=== PATIENT | female | born 1985 | race Two or more races ===

== ENCOUNTER 2020-04-05 20:09 | Emergency (ER) | payer MEDICAID, SELFPAY | END 2020-04-06 00:12 | disposition left against medical advice (07) | PROVIDERS: Emergency Provider Emergency Medicine | DX: R42 Dizziness and giddiness (principal) ==

== ENCOUNTER 2020-09-15 12:45 | Inpatient (IN) | payer MEDICAID, SELFPAY ==
--- NOTE | ~2020-09-15 | XR_ITS ---
EXAMINATION: XR CHEST CLINICAL INFORMATION: Shortness of breath COMPARISON: Chest 02/21/2014. TECHNIQUE: Frontal view of the chest was obtained. FINDINGS: The lungs are hypoexpanded with mild patchy opacity in both lower lobes. There is a 1 cm nodule left lung base likely artifact. Was not seen on the previous exam 02/21/2014. The heart size and pulmonary vascularity is normal. Mild spondylosis dorsal spine seen. No lytic process. XR/XR chest 1V IMPRESSION: Patchy opacity bilateral infrahilar and lower lobes suspicious for developing infiltrate.
--- NOTE | 2020-09-15 12:57 | ECG_ITS ---
Test Reason : SOB Blood Pressure : / mmHG Vent. Rate : 110 BPM Atrial Rate : 110 BPM P-R Int : 122 ms QRS Dur : 072 ms QT Int : 318 ms P-R-T Axes : 060 044 028 degrees QTc Int : 430 ms Sinus tachycardia Possible Left atrial enlargement Borderline ECG When compared with ECG of 06-OCT-2012 10:36, No significant change was found Referred By: Jade Odonnell Electronically Signed By:PORTER MONTGOMERY
[2020-09-15] MEDS: Albuterol Sulfate (0.083%) 2.5 MG/3 ML VIAL.NEB 10 MG INHALE (13:07)
[2020-09-15 13:12] VITALS: BP 154/88; PULSE 101; RESP 24; TEMP 37.1; O2SAT 91; BMI 37.5
[2020-09-15 13:21] LABS: MANUAL DIFF FLAG NO
[2020-09-15 13:24] LABS: Basophils Absolute Auto 0.1 X10*3/uL (0.0-0.2); Basophils Percent Auto 0.4 % (0-2); Eosinophils Absolute Auto 0.1 X10*3/uL (0.0-0.4); Eosinophils Percent Auto 0.5 % (0-4); Hematocrit 38.2 % (37-47); Imm Gran Abs Auto 0.04 X10*3/uL (0.00-0.03); Imm Gran Pct Auto 0.3 % (0.0-0.4); Lymphocytes Absolute Auto 1.5 X10*3/uL (1.2-4.9); Lymphocytes Percent Auto 11.9 % (20-40); Mean Corpuscular Hemoglobin 28.8 pg (27.0-33.0); Mean Corpuscular Volume 84.7 fL (80-98); Mean Platelet Volume 10.5 fL (9.4-12.3); Monocytes Absolute Auto 1.3 X10*3/uL (0.1-1.2); Monocytes Percent Auto 9.6 % (2-11); Neutrophils Percent Auto 77.3 % (45-73); Platelet Count 291 X10*3/uL (160-400); Red Blood Count 4.51 X10*6/uL (4.20-5.50); Red Cell Distribution Width 12.8 % (11.0-16.0)
[2020-09-15] MEDS: 0.9 % Sodium Chloride 1,000 ML 999 ML IVCONT (13:30)
[2020-09-15] MEDS: Magnesium Sulfate/H2O 2 GM/50 ML PIGGYBACK IV (13:30)
[2020-09-15] MEDS: methylPREDNISolone Sod Succ 125 MG/2 ML VIAL IVPUSH (13:30)
[2020-09-15 13:40] LABS: Lactic Acid 1.2 mmol/L (0.5-2.0)
[2020-09-15 13:49] LABS: B Type Natriuretic Peptide 42 pg/mL (<100)
[2020-09-15] MEDS: cefTRIAXone sodium 2 GM in 0.9 % Sodium Chloride 50 ML IV (14:00)
--- NOTE | 2020-09-15 14:05 | PC.NURSE ---
RHONCHI MOSTLY RESOLVED THROUGHOUT POST NEB TX. REMAINS ON SUPPLEMENTAL O2 AT 2L WITH SPO2 90% ON RA.
[2020-09-15 14:09] VITALS: PULSE 98; O2SAT 92
[2020-09-15 14:10] LABS: Alanine Aminotransferase 45 U/L (0-31); Alkaline Phosphatase 102 U/L (39-117); Anion Gap 14 (12-20); Aspartate Amino Transferase 32 U/L (5-31); Bilirubin Total 0.7 mg/dL (0.0-1.0); Blood Urea Nitrogen 5 mg/dL (9-16); Carbon Dioxide 24 mmol/L (22-29); Chloride 101 mmol/L (96-108); Estimated Glomerular Filt Rate > 60; Glucose Random 268 mg/dL (60-115); Magnesium 1.8 mg/dL (1.6-2.6); Potassium 3.8 mmol/L (3.3-5.1); Sodium 135 mmol/L (135-145); Total Protein 7.1 g/dL (6.5-8.0)
--- NOTE | 2020-09-15 14:33 | ED.ASTHMA ---
HPI - Asthma General Chief Complaint: Asthma Stated Complaint: asthma Time Seen by Provider: 09/15/20 12:57 Source: patient and family Mode of arrival: ambulatory Limitations: no limitations History of Present Illness HPI Narrative: 35-year-old female with a past medical history of diabetes to the ED with complaints of dry cough with shortness of breath/wheezing with posttussive emesis for the past 3 days worse today. She reports associated chills and subjective fevers that started this morning. reports that she was prescribed an inhaler and no symptomatic relief. She reports she has not had an asthma attack in a long time. She has not recently been admitted for asthma. She has never been intubated for her asthma. She denies any dizziness, headaches, change in vision, sputum production, palpitations, abdominal pain, diarrhea, dysuria, weakness, recent travel or sick contacts or any other symptoms complaints or concerns at this time. MD complaint: asthma attack , shortness of breath and wheezing Onset (ago): day(s) (Three days worse today) Severity: severe and worse than usual Context: none known Associated symptoms: dry cough Treatments Prior to Arrival: other (Albuterol inhaler no symptomatic relief) Related Data Current Asthma Therapy: other (Albuterol inhaler) Home Medications Medication Instructions Recorded Confirmed albuterol sulfate 90 mcg/actuation 2 puff INHALATION Q4-6H PRN 09/15/20 09/15/20 aerosol inhaler cetirizine 10 mg tablet 1 tab PO DAILY PRN 09/15/20 09/15/20 dulaglutide 0.75 mg/0.5 mL 0.75 mg SUBCUT QWEEK 09/15/20 09/15/20 subcutaneous pen injector (Trulicity) ergocalciferol (vitamin D2) 1,250 1,250 mcg PO QWEEK 09/15/20 09/15/20 mcg (50,000 unit) capsule fluticasone propionate 110 1 PO BID 09/15/20 mcg/actuation HFA aerosol inhaler (Flovent HFA) gabapentin 300 mg capsule 1 cap PO DAILY 09/15/20 09/15/20 hydroxyzine pamoate 25 mg capsule 1 cap PO BEDTIME PRN 09/15/20 09/15/20 insulin glargine 100 unit/mL (3 34 unit SUBCUT QPM 09/15/20 09/15/20 mL) subcutaneous pen (Lantus Solostar U-100 Insulin) lisinopril 2.5 mg tablet 1 tab PO DAILY 09/15/20 09/15/20 omeprazole 20 mg capsule,delayed 1 cap PO DAILY PRN 09/15/20 09/15/20 release Allergies Allergy/AdvReac Type Severity Reaction Status Date / Time No Known Allergies Allergy Unverified 11/02/19 18:13 Review of Systems Review of Systems: Constitutional : denies med noncompliance, no history of PE or DVT, denies recent travel, + Fever, + Chills ENT/Mouth : No Hoarseness, No sore throat, No Rhinorrhea Eyes: No Redness, No Discharge, No Vision Changes Cardiovascular : No Chest Pain, + SOB, No Dyspnea on Exertion, No Edema, no pleurisy, Respiratory : + Cough, No Sputum, no stridor, no hemoptysis, Gastrointestinal : + Nausea, + Vomiting, No Diarrhea, No abdominal Pain Genitourinary : No Dysuria, No Hematuria Musculoskeletal : No joint pain, No Myalgias Extremities: no extremity swelling /pain Skin : No rash, no itching, no swelling Neuro : No Weakness, No Numbness, No Headache Psych : No anxiety, depression Heme/Lymph: No Bruising, No Bleeding Endocrine : No Polyuria, No Polydipsia Yes all other systems are reviewed and are negative [facility] Past Medical History Attestation statement: The following information was validated with the patient. Medical History Asthma Diabetes Social History Social History Advance Directives: No Advance Directives Information Provided: Yes Patient : No Physical Exam Vital Signs: Vital Signs: Last Vital Signs Temp 98.8 F 09/15/20 13:12 Pulse 98 09/15/20 14:09 Resp 24 H 09/15/20 13:12 BP 154/88 H 09/15/20 13:12 Pulse Ox 91 L 09/15/20 13:12 Body Mass Index 37.5 vital signs have been reviewed as normal and appeared to be correct. Blood pressure hypertensive 154/88. Heart rate tachycardic at 101. Respiration rate tachypneic 24. Temperature normal. Oxygen saturation low at 91% on room air. Appearance: Alert. Oriented X3. In acute respiratory distress. Head: Normal external exam. Normocephalic. Atraumatic. Eyes: PERRLA. EOMI. Conjunctiva and sclera normal. Eyelids normal. ENT: EAC normal. TM's Normal. Pharynx normal. Uvula midline. Moist mucous membranes. No trismus noted. No drooling noted. No muffled voice noted. Neck: Normal inspection. Neck supple. FROM. No adenopathy. Thyroid Normal. No meningeal signs. No neck mass noted. CVS: Normal heart rate and rhythm. Heart sound normal. Pulses normal throughout. No murmurs/rales/gallops. Respiratory: In acute respiratory distress with decreased breath sounds and inspiratory and expiratory wheezing throughout. Patient noted to have tracheal tugging and accessory muscle usage noted No rales/rhonchi noted. Chest is nontender. Abdomen: Soft and nontender. Bowel sounds normal in all 4 quadrants. No distention noted. No organomegaly noted. No visible injury noted. Back: Full range of motion noted. No rashes/lesion/induration/fluctuance or signs of infection noted. Skin: Skin warm and dry. Normal skin color. Normal skin turgor. No rashes/lesions/lacerations noted. Extremities: No lower extremity edema. No calf tenderness is noted. exhibit normal range of motion. Extremities nontender. Neuro: Oriented X 3. No motor deficit. No sensory deficit. Reflexes normal. Normal steady gait. No focal neuro deficits noted. Vascular: + radial pulses/+ 2 distal pedal pulses/+2 dorsalis pedis b/l. Normal cap refill. No cyanosis noted to upper extremity nails and lower extremity toes nails. Course Course Course Narrative: 13:45pm - 35-year-old female with a past medical history of diabetes to the ED with complaints of dry cough with shortness of breath/wheezing with posttussive emesis for the past 3 days worse today. She reports associated chills and subjective fevers that started this morning. reports that she was prescribed an inhaler and no symptomatic relief. She reports she has not had an asthma attack in a long time. She has not recently been admitted for asthma. She has never been intubated for her asthma. Plan: Labs, chest x-ray, blood cultures, lactic acid, UA. Provide an hour long breathing treatment, 4 mg of Zofran, 2 mg of magnesium and 125 mg of Solu-Medrol along with 2 g of Rocephin and re-evaluate. Reevaluation(s) Reevaluation #1: - patient's exam improved she no longer has tracheal tugging or accessory muscle usage mild expiratory wheezing noted otherwise not in any acute distress at this time. - labs reviewed and patient has an elevated white blood cell count at 13,000. BUN 5. Random glucose 268. AST/ALT 32/45. Otherwise all other labs are within normal limits. Patient negative for COVID/flu. She is positive for RSV. - chest x-ray revealed patchy opacity bilateral infrahilar and lower lobes suspicious for developing infiltrate. - therefore patient will be admitted at this time for asthma exacerbation exacerbated by RSV and pneumonia. Patient understands agrees with this plan. I discussed this patient with Dr. Andrews she understands and agrees with the plan. Time: 14:47 [facility] - Asthma Medical Records Attestation: I reviewed the patient's medical records. Lab Data Attestation: I reviewed the patient's lab results. Result diagrams: 09/15/20 13:17 09/15/20 13:42 Labs: Lab Results 09/15/20 09/15/20 09/15/20 Range/Units 13:17 13:17 13:17 WBC 13.0 H (4.8-10.8) X10*3/uL RBC 4.51 (4.20-5.50) X10*6/uL Hgb 13.0 (12.0-16.0) g/dl Hct 38.2 (37-47) % MCV 84.7 (80-98) fL MCH 28.8 (27.0-33.0) pg MCHC 34.0 (31.0-35.0) g/dl RDW 12.8 (11.0-16.0) % Plt Count 291 (160-400) X10*3/uL MPV 10.5 (9.4-12.3) fL Immature Gran % (Auto) 0.3 (0.0-0.4) % Neut % (Auto) 77.3 H (45-73) % Lymph % (Auto) 11.9 L (20-40) % [place] % (Auto) 9.6 (2-11) % Eos % (Auto) 0.5 (0-4) % Baso % (Auto) 0.4 (0-2) % Lymph # (Auto) 1.5 (1.2-4.9) X10*3/uL [place] # (Auto) 1.3 H (0.1-1.2) X10*3/uL Eos # (Auto) 0.1 (0.0-0.4) X10*3/uL Baso # (Auto) 0.1 (0.0-0.2) X10*3/uL Abs Immat Gran (auto) 0.04 H (0.00-0.03) X10*3/uL Absolute Neuts (auto) 10.0 H (2.0-8.3) X10*3/uL Absolute Nucleated RBC 0.000 (0.0-0.012) X10*3/uL Nucleated RBC % (auto) 0.0 (0.0-0.2) /100WBC Sodium (135-145) mmol/L Potassium (3.3-5.1) mmol/L Chloride (96-108) mmol/L Carbon Dioxide (22-29) mmol/L Anion Gap (12-20) BUN (9-16) mg/dL Creatinine (0.5-1.4) mg/dL Estim Creat Clear Calc Estimated GFR Random Glucose (60-115) mg/dL Lactic Acid (0.5-2.0) mmol/L Calcium (8.4-10.2) mg/dL Magnesium (1.6-2.6) mg/dL Total Bilirubin (0.0-1.0) mg/dL AST (5-31) U/L ALT (0-31) U/L Alkaline Phosphatase (39-117) U/L B-Natriuretic Peptide 42 (<100) pg/mL Total Protein (6.5-8.0) g/dL Albumin (3.5-5.0) g/dL Coronavirus (PCR) NEGATIVE (Negative) Influenza Type A (PCR) NEGATIVE (Negative) Influenza Type B (PCR) NEGATIVE (Negative) RSV RNA Qual (PCR) POSITIVE A (Negative) 09/15/20 09/15/20 Range/Units 13:17 13:42 WBC (4.8-10.8) X10*3/uL RBC (4.20-5.50) X10*6/uL Hgb (12.0-16.0) g/dl Hct (37-47) % MCV (80-98) fL MCH (27.0-33.0) pg MCHC (31.0-35.0) g/dl RDW (11.0-16.0) % Plt Count (160-400) X10*3/uL MPV (9.4-12.3) fL Immature Gran % (Auto) (0.0-0.4) % Neut % (Auto) (45-73) % Lymph % (Auto) (20-40) % [place] % (Auto) (2-11) % Eos % (Auto) (0-4) % Baso % (Auto) (0-2) % Lymph # (Auto) (1.2-4.9) X10*3/uL [place] # (Auto) (0.1-1.2) X10*3/uL Eos # (Auto) (0.0-0.4) X10*3/uL Baso # (Auto) (0.0-0.2) X10*3/uL Abs Immat Gran (auto) (0.00-0.03) X10*3/uL Absolute Neuts (auto) (2.0-8.3) X10*3/uL Absolute Nucleated RBC (0.0-0.012) X10*3/uL Nucleated RBC % (auto) (0.0-0.2) /100WBC Sodium 135 (135-145) mmol/L Potassium 3.8 (3.3-5.1) mmol/L Chloride 101 (96-108) mmol/L Carbon Dioxide 24 (22-29) mmol/L Anion Gap 14 (12-20) BUN 5 L (9-16) mg/dL Creatinine 0.75 (0.5-1.4) mg/dL Estim Creat Clear Calc 133.0 Estimated GFR > 60 Random Glucose 268 H (60-115) mg/dL Lactic Acid 1.2 (0.5-2.0) mmol/L Calcium 9.0 (8.4-10.2) mg/dL Magnesium 1.8 (1.6-2.6) mg/dL Total Bilirubin 0.7 (0.0-1.0) mg/dL AST 32 H (5-31) U/L ALT 45 H (0-31) U/L Alkaline Phosphatase 102 (39-117) U/L B-Natriuretic Peptide (<100) pg/mL Total Protein 7.1 (6.5-8.0) g/dL Albumin 4.0 (3.5-5.0) g/dL Coronavirus (PCR) (Negative) Influenza Type A (PCR) (Negative) Influenza Type B (PCR) (Negative) RSV RNA Qual (PCR) (Negative) Imaging Data Chest x-ray: Attestation: I personally reviewed and interpreted this imaging study as follows: Radiologist's impression: FINDINGS: The lungs are hypoexpanded with mild patchy opacity in both lower lobes. There is a 1 cm nodule left lung base likely artifact. Was not seen on the previous exam 02/21/2014. The heart size and pulmonary vascularity is normal. Mild spondylosis dorsal spine seen. No lytic process. XR/XR chest 1V IMPRESSION: Patchy opacity bilateral infrahilar and lower lobes suspicious for developing infiltrate. ECG Data Attestation: I personally reviewed and interpreted this ECG as follows: ECG interpretation date: 09/15/20 ECG interpretation time: 13:34 Interpretation: Sinus tachycardia with ventricular rate of 110 with left atrial enlargement no acute ischemic changes are noted. Similar when compared to prior EKG 10/07/2012. Critical Care Time Critical Care Time Critical Care Time: Yes Total Critical Care Time: 60 Attestation: I personally attest to this time spent taking care of the patient Discharge Plan Discharge Clinical Impression: Asthma with acute exacerbation, Pneumonia, Respiratory syncytial virus (RSV) Patient Disposition: Admitted As Inpatient
[2020-09-15 14:40] LABS: Influenza A PCR NEGATIVE (Negative); Influenza B PCR NEGATIVE (Negative); Resp Syncy Virus RNA Qual PCR POSITIVE (Negative); SARS COV2 PCR INHOUSE NEGATIVE (Negative)
--- NOTE | 2020-09-15 15:22 | PM.EVENT ---
Event Note Date of Service: 09/16/20 Event Note: the patient was seen and evaluated with MIREYA Mancia. I agree with her note, assessment and plan with the following. In summary, 35 years old lady with PMH of diabetes and obesity who presents to the hospital of breath and dry cough for the last few days. Found to be in asthma exacerbation secondary to RSV virus infection. Acute asthma exacerbation Start steroids, nebulizers and oxygen supplement as needed Rest of evaluations by PA note.
--- NOTE | 2020-09-15 15:38 | PM.IMHP ---
History of Present Illness Date of Service: 09/15/20 Chief Complaint: Shortness of breath This is a 35-year-old Chinese-speaking female who presents to the emergency department with complaints of shortness of breath. She reports 2 days of dry cough and shortness of breath she has had associated nausea and vomiting but denies any abdominal pain or diarrhea. She reports associated chills. She denies any recent sick contacts. She received her vaccination for COVID-19 with the pfizer vaccine in August. To the emergency department she was tachycardic and tachypneic. Chest x-ray shows patchy opacity bilateral infrahilar and lower lobe suspicious for developing infiltrate. She was started on a dose of IV ceftriaxone. She received IV magnesium, IV steroids and 1 updraft treatment. Lab work was significant for leukocytosis of 13. Her COVID swab was negative however she did test positive for RSV. Given her initial presentation the decision was made to admit her to the hospital for further management asthma and pneumonia. Review of Systems Review of Systems: Yes all other systems are reviewed and are negative Constitutional: Constitutional: Reports chills and Denies fever(s) Cardiovascular: Cardiovascular: Denies chest pain Respiratory: Respiratory: Reports cough Gastrointestinal: Gastrointestinal: Denies abdominal pain [facility] Medical History Asthma Diabetes Functional capacity: independent ambulation Family History Other Asthma Pertinent family history: son has asthma Social History (Updated 09/15/20 @ 15:44 by MIREYA Nichols) Alcohol intake: current Alcohol intake frequency: holidays/special occasions only Patient Tobacco Use Status: Current everyday Tobacco user Cigarettes Per Day: 3 Use of substances other than those prescribed or required for medical reasons: No Advance Directives: No Advance Directives Information Provided: Yes Patient : No Meds Allergies Allergy/AdvReac Type Severity Reaction Status Date / Time No Known Allergies Allergy Unverified 11/02/19 18:13 Home Medications Medication Instructions Recorded Confirmed Last Taken Type albuterol sulfate 90 mcg/actuation 2 puff INHALATION Q4-6H PRN 09/15/20 09/15/20 Unknown History aerosol inhaler cetirizine 10 mg tablet 1 tab PO DAILY PRN 09/15/20 09/15/20 Unknown History dulaglutide 0.75 mg/0.5 mL 0.75 mg SUBCUT QWEEK 09/15/20 09/15/20 4 Days Ago History subcutaneous pen injector ~09/11/20 (Trulicity) ergocalciferol (vitamin D2) 1,250 1,250 mcg PO QWEEK 09/15/20 09/15/20 1 Day Ago History mcg (50,000 unit) capsule ~09/14/20 fluticasone propionate 110 1 PO BID 09/15/20 Unknown History mcg/actuation HFA aerosol inhaler (Flovent HFA) gabapentin 300 mg capsule 1 cap PO DAILY 09/15/20 09/15/20 Unknown History hydroxyzine pamoate 25 mg capsule 1 cap PO BEDTIME PRN 09/15/20 09/15/20 Unknown History insulin glargine 100 unit/mL (3 34 unit SUBCUT QPM 09/15/20 09/15/20 Unknown History mL) subcutaneous pen (Lantus Solostar U-100 Insulin) lisinopril 2.5 mg tablet 1 tab PO DAILY 09/15/20 09/15/20 Unknown History omeprazole 20 mg capsule,delayed 1 cap PO DAILY PRN 09/15/20 09/15/20 Unknown History release Physical Exam Vital Signs and Narrative: Vital Signs: Last Vital Signs Temp 98.8 F 09/15/20 13:12 Pulse 98 09/15/20 14:09 Resp 24 H 09/15/20 13:12 BP 154/88 H 09/15/20 13:12 Pulse Ox 91 L 09/15/20 13:12 Body Mass Index 37.5 Results Labs CBC and Chem 7: 09/15/20 13:17 09/15/20 13:42 Labs: Laboratory Results - last 24 hr 09/15/20 09/15/20 09/15/20 13:17 13:17 13:17 MCV 84.7 MCH 28.8 MCHC 34.0 RDW 12.8 Plt Count 291 MPV 10.5 Immature Gran % (Auto) 0.3 Neut % (Auto) 77.3 H Lymph % (Auto) 11.9 L [place] % (Auto) 9.6 Eos % (Auto) 0.5 Baso % (Auto) 0.4 Lymph # (Auto) 1.5 [place] # (Auto) 1.3 H Eos # (Auto) 0.1 Baso # (Auto) 0.1 Abs Immat Gran (auto) 0.04 H Absolute Neuts (auto) 10.0 H Absolute Nucleated RBC 0.000 Nucleated RBC % (auto) 0.0 Anion Gap Estim Creat Clear Calc Estimated GFR Random Glucose Lactic Acid Calcium Magnesium Total Bilirubin AST ALT Alkaline Phosphatase B-Natriuretic Peptide 42 Total Protein Albumin Coronavirus (PCR) NEGATIVE Influenza Type A (PCR) NEGATIVE Influenza Type B (PCR) NEGATIVE RSV RNA Qual (PCR) POSITIVE A 09/15/20 09/15/20 13:17 13:42 MCV MCH MCHC RDW Plt Count MPV Immature Gran % (Auto) Neut % (Auto) Lymph % (Auto) [place] % (Auto) Eos % (Auto) Baso % (Auto) Lymph # (Auto) [place] # (Auto) Eos # (Auto) Baso # (Auto) Abs Immat Gran (auto) Absolute Neuts (auto) Absolute Nucleated RBC Nucleated RBC % (auto) Anion Gap 14 Estim Creat Clear Calc 133.0 Estimated GFR > 60 Random Glucose 268 H Lactic Acid 1.2 Calcium 9.0 Magnesium 1.8 Total Bilirubin 0.7 AST 32 H ALT 45 H Alkaline Phosphatase 102 B-Natriuretic Peptide Total Protein 7.1 Albumin 4.0 Coronavirus (PCR) Influenza Type A (PCR) Influenza Type B (PCR) RSV RNA Qual (PCR) Imaging Radiologist's Impressions: Impressions Chest X-Ray 09/15/20 12:58 IMPRESSION: Patchy opacity bilateral infrahilar and lower lobes suspicious for developing infiltrate. Assessment and Plan (1) Asthma with acute exacerbation: Status: Acute (2) Respiratory syncytial virus (RSV): Status: Acute This is a 35-year-old Chinese-speaking female with a history of asthma and diabetes who presents to the emergency department with 2 day history of shortness of breath found to have asthma exacerbation, pneumonia and RSV. Sepsis secondary to pneumonia meets criteria with leukocytosis, tachycardia, tachypnea Lactic acid wnl sepsis focused exam completed -follow blood cultures Acute asthma exacerbation Likely exacerbated by RSV -scheduled and p.r.n. breathing treatments -IV Solu-Medrol Pneumonia -IV doxycycline -follow up blood cultures Mild transaminitis chronic likely r/t fatty liver DM Trulicity non formulary -continue Lantus -SSI, POC Obesity BMI 37.6 DVT prophylaxis-Lovenox Code status-full code Attending-Dr. Martin Quality Stroke Does the patient have a stroke diagnosis?: No VTE Prior VTE?: No VTE Risk Level:: Medical - moderate - high VTE Device Contraindication: Treatment Not Indicated VTE Drug Contraindication: N/A - Med Ordered
[2020-09-15 16:00] VITALS: BP 129/80; PULSE 90; RESP 16; TEMP 37; O2SAT 95
[2020-09-15 17:38] LABS: Glucose Urine UA 500 MG/DL (NEG); Leukocyte Esterase Urine NEG (NEG); Nitrite Urine NEG (NEG); Specific Gravity - Urine >= 1.030 (1.005-1.025); UACC Culture Trigger NO; Urine Blood 2+ (NEG); Urine Ketones >=80 MG/DL (NEG); Urine Protein 2+ MG/DL (NEG-TRACE)
[2020-09-15 17:39] LABS: Appearance Urine CLEAR; Color Urine YELLOW
[2020-09-15 17:58] LABS: Bacteria Urine TRACE /LPF; Squamous Epithelial Cell Urine 1+ /LPF; WBC Urine 0 /HPF (0-4)
[2020-09-15 17:59] LABS: Uric Acid Crystals Urine TRACE /LPF
[2020-09-15] MEDS: Doxycycline Hyclate 100 MG in 0.9 % Sodium Chloride 250 ML 166.67 MG IV (18:21)
[2020-09-15 18:27] LABS: Glucose, Whole Blood 325 mg/dL (60-115)
[2020-09-15] MEDS: 0.9 % Sodium Chloride Flush 3 ML SYRINGE IVFLUSH ×2 (18:50→23:08)
[2020-09-15] MEDS: Albuterol/Iprat 2.5/0.5MG 3 ML AMPUL.NEB INHALE (19:58)
[2020-09-15 19:59] VITALS: PULSE 83; O2SAT 97
[2020-09-15 20:36] LABS: Glucose, Whole Blood 367 mg/dL (60-115)
[2020-09-15] MEDS: Insulin Lispro 100 UNIT/ML 3 ML VIAL SUBCUT (20:49)
[2020-09-15] MEDS: Enoxaparin Sodium 40 MG/0.4 ML SYRINGE SUBCUT (20:49)
[2020-09-15] MEDS: Acetaminophen 325 MG TABLET 650 MG PO (20:56)
[2020-09-15 22:01] VITALS: BP 151/85; PULSE 84; RESP 16; O2SAT 95
[2020-09-15] MEDS: Insulin Glargine,Hum.rec.anlog 100 UNIT/ML 10 ML VIAL 34 UNIT SUBCUT (22:03)
[2020-09-15 22:09] LABS: Glucose, Whole Blood 370 mg/dL (60-115)
--- NOTE | 2020-09-15 22:09 | PC.NURSE ---
MD FERGUSON AWARE OF PT ELEVATED POC. MEDICATED ORDERED. AWAITING TRANSFER TO FLOOR. RESP EVEN, NONLABOURED. SPEAKING IN CLEAR FULL SENTENCES.
[2020-09-15 22:33] VITALS: BP 146/84; PULSE 88; RESP 20; TEMP 36.7; O2SAT 93
[2020-09-15 22:40] LABS: Glucose, Whole Blood 345 mg/dL (60-115)
[2020-09-15] MEDS: methylPREDNISolone Sod Succ 40 MG/ML VIAL IVPUSH (23:08)
[2020-09-16] VITALS (7 sets, daily range): BP systolic 126–135; BP diastolic 63–79; PULSE 66–87; RESP 18–20; TEMP 36.3–37.1; O2SAT 91–98; BMI 35.6
[2020-09-16] MEDS: Doxycycline Hyclate 100 MG in 0.9 % Sodium Chloride 250 ML 166.67 MG IV ×2 (05:22→18:29)
[2020-09-16 05:42] LABS: Hematocrit 37.4 % (37-47); Hemoglobin 12.4 g/dl (12.0-16.0); Mean Corpuscular HGB Conc 33.2 g/dl (31.0-35.0); Mean Corpuscular Hemoglobin 28.6 pg (27.0-33.0); Mean Corpuscular Volume 86.4 fL (80-98); Mean Platelet Volume 11.2 fL (9.4-12.3); Platelet Count 316 X10*3/uL (160-400); Red Blood Count 4.33 X10*6/uL (4.20-5.50); Red Cell Distribution Width 12.9 % (11.0-16.0); White Blood Count 13.4 X10*3/uL (4.8-10.8)
[2020-09-16 06:19] LABS: Anion Gap 13 (12-20); Blood Urea Nitrogen 9 mg/dL (9-16); Calcium 9.2 mg/dL (8.4-10.2); Carbon Dioxide 26 mmol/L (22-29); Chloride 101 mmol/L (96-108); Estimated Glomerular Filt Rate > 60; Glucose Random 323 mg/dL (60-115); Potassium 5.4 mmol/L (3.3-5.1); Sodium 135 mmol/L (135-145)
[2020-09-16 07:42] LABS: Glucose, Whole Blood 289 mg/dL (60-115)
[2020-09-16] MEDS: Albuterol/Iprat 2.5/0.5MG 3 ML AMPUL.NEB INHALE ×3 (08:12→19:08)
[2020-09-16] MEDS: Acetaminophen 325 MG TABLET 650 MG PO ×2 (08:14→18:36)
[2020-09-16] MEDS: 0.9 % Sodium Chloride Flush 3 ML SYRINGE IVFLUSH ×3 (08:16→22:43)
[2020-09-16] MEDS: Gabapentin 300 MG CAPSULE PO (08:16)
[2020-09-16] MEDS: Insulin Lispro 100 UNIT/ML 3 ML VIAL SUBCUT ×4 (08:18→21:18)
[2020-09-16] MEDS: Sodium Polystyrene Sulfon/Sorb 15 GM/60 ML ORAL.SUSP 30 GM PO (08:55)
[2020-09-16] MEDS: Insulin Glargine,Hum.rec.anlog 100 UNIT/ML 10 ML VIAL 10 UNIT SUBCUT (08:55)
[2020-09-16] MEDS: methylPREDNISolone Sod Succ 40 MG/ML VIAL IVPUSH ×2 (11:38→22:41)
--- NOTE | 2020-09-16 11:45 | MHC.CM.PN ---
met with pt who reports not having services prior to admission
[2020-09-16 11:59] LABS: Glucose, Whole Blood 293 mg/dL (60-115)
--- NOTE | 2020-09-16 14:05 | HO.PM.IMPN ---
Subjective Subjective Date of Service: 09/16/20 Physical Exam Vital Signs: Vital Signs: Last Vital Signs Temp 98.2 F 09/16/20 07:35 Pulse 87 09/16/20 08:17 Resp 20 09/16/20 07:35 BP 131/79 09/16/20 08:15 Pulse Ox 91 L 09/16/20 07:35 Body Mass Index 35.6 Objective Data Current Medications Generic Name Dose Route Start Last Admin Trade Name Freq PRN Reason Stop Dose Admin Acetaminophen 650 mg 09/15/20 17:39 09/16/20 08:14 Acetaminophen 325 Mg Tablet PO 650 mg Q6H PRN Administration Pain, Mild (Pain Scale 1-3) Albuterol Sulfate 1.25 mg 09/15/20 17:39 Albuterol Sulfate (0.042%) 1.25 Mg/3 Ml Vial.Neb INHALE Q4H PRN Shortness of Breath/Wheezing Albuterol/Ipratropium 3 ml 09/15/20 20:00 09/16/20 08:12 Albuterol/Iprat 2.5/0.5mg 3 Ml Ampul.Neb INHALE 3 ml RQ6H WHILE AWAKE DEL Administration Docusate Sodium 100 mg 09/15/20 17:39 Docusate Sodium 100 Mg Capsule PO DAILY PRN Constipation Enoxaparin Sodium 40 mg 09/15/20 20:00 09/15/20 20:49 Enoxaparin Sodium 40 Mg/0.4 Ml Syringe SUBCUT 40 mg Q24H DEL Administration Gabapentin 300 mg 09/16/20 09:00 09/16/20 08:16 Gabapentin 300 Mg Capsule PO 300 mg DAILY DEL Administration Guaifenesin/Dextromethorphan 5 ml 09/15/20 17:39 Guaifenesin Dm 100/10/5 Ml 5 Ml Syrup PO Q6H PRN Cough Hydroxyzine HCl 25 mg 09/15/20 17:39 Hydroxyzine Hcl 25 Mg Tablet PO BEDTIME PRN Insomnia Doxycycline Hyclate 100 mg/ 250 mls @ 166.67 mls/hr 09/15/20 18:00 09/16/20 07:17 Sodium Chloride IV Infused Q12H DEL Infusion Insulin Glargine 34 unit 09/15/20 21:00 09/15/20 22:03 Insulin Glargine,Hum.Rec.Anlog 100 Unit/Ml 10 Ml Vial SUBCUT 34 unit BEDTIME DEL Administration Insulin Glargine 10 unit 09/16/20 09:00 09/16/20 08:55 Insulin Glargine,Hum.Rec.Anlog 100 Unit/Ml 10 Ml Vial SUBCUT 10 unit DAILY DEL Administration Insulin Human Lispro 0 unit 09/15/20 17:39 09/16/20 11:38 Insulin Lispro 100 Unit/Ml 3 Ml Vial SUBCUT 6 unit QIDACHS [facility] Administration Protocol Lisinopril 2.5 mg 09/16/20 09:00 09/16/20 08:15 Lisinopril 2.5 Mg Tablet PO 2.5 mg DAILY [facility] Administration Protocol Methylprednisolone Sodium Succinate 40 mg 09/15/20 23:00 09/16/20 11:38 Methylprednisolone Sod Succ 40 Mg/Ml Vial IVPUSH 40 mg Q12H DEL Administration Omeprazole 20 mg 09/15/20 17:39 Omeprazole 20 Mg Capsule.Dr PO DAILY PRN Acid Reflux Ondansetron HCl 4 mg 09/15/20 17:39 Ondansetron Hcl 4 Mg/2 Ml Vial IVPUSH Q8H PRN Nausea and Vomiting Sodium Chloride 3 ml 09/15/20 17:39 09/16/20 08:16 0.9 % Sodium Chloride Flush 3 Ml Syringe IVFLUSH 3 ml QSHIFT [facility] Administration Labs CBC & Chem 7: 09/16/20 04:53 09/16/20 04:53 Labs: Laboratory Results - last 24 hr 09/15/20 09/15/20 09/15/20 13:17 13:42 16:59 MCV MCH MCHC RDW Plt Count MPV Absolute Nucleated RBC Nucleated RBC % (auto) Anion Gap 14 Estim Creat Clear Calc 133.0 Estimated GFR > 60 POC Glucose Random Glucose 268 H Calcium 9.0 Magnesium 1.8 Total Bilirubin 0.7 AST 32 H ALT 45 H Alkaline Phosphatase 102 Total Protein 7.1 Albumin 4.0 Urine Color YELLOW Urine Appearance CLEAR Urine pH 6.0 Ur Specific [place] >= 1.030 H Urine Protein 2+ H Urine Glucose (UA) 500 H Urine Ketones >=80 Urine Blood 2+ H Urine Nitrite NEG Ur Leukocyte Esterase NEG Urine RBC 5-9 H Urine WBC 0 Ur Squamous Epith Cells 1+ Uric Acid Crystals TRACE Urine Bacteria TRACE Coronavirus (PCR) NEGATIVE Influenza Type A (PCR) NEGATIVE Influenza Type B (PCR) NEGATIVE RSV RNA Qual (PCR) POSITIVE A 09/15/20 09/15/20 09/15/20 18:23 20:26 22:03 MCV MCH MCHC RDW Plt Count MPV Absolute Nucleated RBC Nucleated RBC % (auto) Anion Gap Estim Creat Clear Calc Estimated GFR POC Glucose 325 H 367 H* 370 H* Random Glucose Calcium Magnesium Total Bilirubin AST ALT Alkaline Phosphatase Total Protein Albumin Urine Color Urine Appearance Urine pH Ur Specific [place] Urine Protein Urine Glucose (UA) Urine Ketones Urine Blood Urine Nitrite Ur Leukocyte Esterase Urine RBC Urine WBC Ur Squamous Epith Cells Uric Acid Crystals Urine Bacteria Coronavirus (PCR) Influenza Type A (PCR) Influenza Type B (PCR) RSV RNA Qual (PCR) 09/15/20 09/16/20 09/16/20 22:35 04:53 04:53 MCV 86.4 MCH 28.6 MCHC 33.2 RDW 12.9 Plt Count 316 MPV 11.2 Absolute Nucleated RBC 0.000 Nucleated RBC % (auto) 0.0 Anion Gap 13 Estim Creat Clear Calc 131.0 Estimated GFR > 60 POC Glucose 345 H Random Glucose 323 H Calcium 9.2 Magnesium Total Bilirubin AST ALT Alkaline Phosphatase Total Protein Albumin Urine Color Urine Appearance Urine pH Ur Specific [place] Urine Protein Urine Glucose (UA) Urine Ketones Urine Blood Urine Nitrite Ur Leukocyte Esterase Urine RBC Urine WBC Ur Squamous Epith Cells Uric Acid Crystals Urine Bacteria Coronavirus (PCR) Influenza Type A (PCR) Influenza Type B (PCR) RSV RNA Qual (PCR) 09/16/20 09/16/20 07:37 11:33 MCV MCH MCHC RDW Plt Count MPV Absolute Nucleated RBC Nucleated RBC % (auto) Anion Gap Estim Creat Clear Calc Estimated GFR POC Glucose 289 H 293 H Random Glucose Calcium Magnesium Total Bilirubin AST ALT Alkaline Phosphatase Total Protein Albumin Urine Color Urine Appearance Urine pH Ur Specific [place] Urine Protein Urine Glucose (UA) Urine Ketones Urine Blood Urine Nitrite Ur Leukocyte Esterase Urine RBC Urine WBC Ur Squamous Epith Cells Uric Acid Crystals Urine Bacteria Coronavirus (PCR) Influenza Type A (PCR) Influenza Type B (PCR) RSV RNA Qual (PCR) Assessment and Plan (1) Asthma with acute exacerbation: Status: Acute (2) Pneumonia: Status: Acute (3) Respiratory syncytial virus (RSV): Status: Acute (4) Sepsis: Status: Acute Assessment and Plan: This is a 35-year-old Indian-speaking female with a history of asthma and diabetes who presents to the emergency department with 2 day history of shortness of breath found to have asthma exacerbation, pneumonia and RSV. Sepsis secondary to pneumonia Pending blood cultures Could be viral pneumonia secondary to RSV infection Continue antibiotics Doxy and CTx Acute asthma exacerbation Likely exacerbated by RSV Nebulizers ATC and p.r.n. IV Solu-Medrol Hyperglycemia secondary to diabetes Blood sugar elevated from being sick and using steroids Continue midnight Lantus Start daily 10 units of Lantus SSI Mild transaminitis chronic likely r/t fatty liver Obesity BMI 37.6 DVT prophylaxis-Lovenox Code status-full code Quality Stroke Does the patient have a stroke diagnosis?: No VTE Prior VTE?: No VTE Risk Level:: Medical - moderate - high VTE Device Contraindication: Treatment Not Indicated VTE Drug Contraindication: N/A - Med Ordered
[2020-09-16 16:09] LABS: Glucose, Whole Blood 332 mg/dL (60-115)
[2020-09-16 20:42] LABS: Glucose, Whole Blood 335 mg/dL (60-115)
[2020-09-16] MEDS: Insulin Glargine,Hum.rec.anlog 100 UNIT/ML 10 ML VIAL 34 UNIT SUBCUT (21:18)
[2020-09-16] MEDS: Enoxaparin Sodium 40 MG/0.4 ML SYRINGE SUBCUT (21:18)
[2020-09-17] MEDS: Doxycycline Hyclate 100 MG in 0.9 % Sodium Chloride 250 ML 166.67 MG IV (05:30)
[2020-09-17 06:02] LABS: Hematocrit 35.6 % (37-47); Hemoglobin 11.7 g/dl (12.0-16.0); Mean Corpuscular HGB Conc 32.9 g/dl (31.0-35.0); Mean Corpuscular Hemoglobin 28.5 pg (27.0-33.0); Mean Corpuscular Volume 86.6 fL (80-98); Platelet Count 345 X10*3/uL (160-400); Red Blood Count 4.11 X10*6/uL (4.20-5.50); Red Cell Distribution Width 13.2 % (11.0-16.0); White Blood Count 15.5 X10*3/uL (4.8-10.8)
[2020-09-17 06:33] LABS: Anion Gap 12 (12-20); Blood Urea Nitrogen 12 mg/dL (9-16); Carbon Dioxide 26 mmol/L (22-29); Chloride 102 mmol/L (96-108); Creatinine Clr Calc Pharmacy 127.5; Estimated Glomerular Filt Rate > 60; Glucose Random 331 mg/dL (60-115); Potassium 5.2 mmol/L (3.3-5.1); Sodium 135 mmol/L (135-145)
[2020-09-17 07:53] VITALS: BP 132/76; PULSE 61; RESP 22; TEMP 36.2; O2SAT 98
[2020-09-17 07:55] LABS: Glucose, Whole Blood 303 mg/dL (60-115)
[2020-09-17] MEDS: Omeprazole 20 MG CAPSULE.DR PO (08:09)
[2020-09-17] MEDS: Acetaminophen 325 MG TABLET 650 MG PO (08:09)
[2020-09-17] MEDS: guaiFENesin DM 100/10/5 ML 5 ML SYRUP PO (08:09)
[2020-09-17] MEDS: Insulin Glargine,Hum.rec.anlog 100 UNIT/ML 10 ML VIAL 10 UNIT SUBCUT (08:10)
[2020-09-17] MEDS: predniSONE 20 MG TABLET 40 MG PO (08:10)
[2020-09-17] MEDS: Gabapentin 300 MG CAPSULE PO (08:10)
[2020-09-17] MEDS: Insulin Lispro 100 UNIT/ML 3 ML VIAL SUBCUT ×2 (08:11→11:42)
[2020-09-17] MEDS: Sodium Polystyrene Sulfon/Sorb 15 GM/60 ML ORAL.SUSP 45 GM PO (08:11)
[2020-09-17] MEDS: 0.9 % Sodium Chloride Flush 3 ML SYRINGE IVFLUSH (08:12)
[2020-09-17] MEDS: Albuterol/Iprat 2.5/0.5MG 3 ML AMPUL.NEB INHALE (08:22)
[2020-09-17 08:24] VITALS: PULSE 60; O2SAT 93
--- NOTE | 2020-09-17 10:15 | P.DS_ITS ---
DS: Providers Provider Date of Service: 09/17/20 Date of admission: 09/15/20 15:08 Primary care physician: [facility] DS: Diagnosis Discharge Diagnosis (1) Asthma with acute exacerbation: Status: Acute (2) Pneumonia: Status: Acute (3) Respiratory syncytial virus (RSV): Status: Acute (4) Sepsis: Status: Acute DS: Medications Discharge Medications Home Medications: Home Medications Medication Instructions Recorded Confirmed albuterol sulfate 90 mcg/actuation 2 puff INHALATION Q4-6H PRN 09/15/20 09/15/20 aerosol inhaler cetirizine 10 mg tablet 1 tab PO DAILY PRN 09/15/20 09/15/20 dulaglutide 0.75 mg/0.5 mL 0.75 mg SUBCUT QWEEK 09/15/20 09/15/20 subcutaneous pen injector (Trulicity) ergocalciferol (vitamin D2) 1,250 1,250 mcg PO QWEEK 09/15/20 09/15/20 mcg (50,000 unit) capsule fluticasone propionate 110 1 PO BID 09/15/20 mcg/actuation HFA aerosol inhaler (Flovent HFA) gabapentin 300 mg capsule 1 cap PO DAILY 09/15/20 09/15/20 hydroxyzine pamoate 25 mg capsule 1 cap PO BEDTIME PRN 09/15/20 09/15/20 insulin glargine 100 unit/mL (3 34 unit SUBCUT QPM 09/15/20 09/15/20 mL) subcutaneous pen (Lantus Solostar U-100 Insulin) lisinopril 2.5 mg tablet 1 tab PO DAILY 09/15/20 09/15/20 omeprazole 20 mg capsule,delayed 1 cap PO DAILY PRN 09/15/20 09/15/20 release Previous Rx's Medication Instructions Recorded dextromethorphan-guaifenesin 10 5 ml PO Q6H PRN 3 Days ml 09/17/20 mg-100 mg/5 mL oral syrup doxycycline monohydrate 100 mg 100 mg PO BID #6 cap 09/17/20 capsule prednisone 20 mg tablet 40 mg PO DAILY 3 Days #6 tab 09/17/20 DS: Summary Hospital Course Hospital Course: Admission note HPI This is a 35-year-old Arabic-speaking female who presents to the emergency department with complaints of shortness of breath.? She reports 2 days of dry cough and shortness of breath she has had associated nausea and vomiting but denies any abdominal pain or diarrhea.? She reports associated chills.? She denies any recent sick contacts.? She received her vaccination for COVID-19 with the pfizer vaccine in August.? To the emergency department she was tachycardic and tachypneic.? Chest x-ray shows patchy opacity bilateral infrahilar and lower lobe suspicious for developing infiltrate.? She was started on a dose of IV ceftriaxone.? She received IV magnesium, IV steroids and 1 updraft treatment.? Lab work was significant for leukocytosis of 13. Her COVID swab was negative however she did test positive for RSV.? Given her initial presentation the decision was made to admit her to the hospital for further management asthma and pneumonia. Hospital course The patient was admitted for treatment of picture of viral sepsis secondary to RSV infection with asthma exacerbation. Chest x-ray showed bilateral infiltrates on multiple to purple areas suggestive of viral pneumonia. Associated with shortness of breath and wheezes treated with IV steroids and bronchodilator nebulizers along with oxygen supplement for the course of hospital stay with good response as the patient was weaned off the oxygen and was able to ambulate freely on the. She was treated with IV antibiotics to of doxycycline for anti-inflammatory effect. To be discharged on doxycycline and prednisone. Time Spent with Patient Time attestation: Total time spent providing and/or coordinating discharge services: Discharge coordination time: Greater than 30 minutes Quality: Stroke Does the patient have a stroke diagnosis?: No Physical Exam Vital Signs: Vital Signs: Last Vital Signs Temp 97.1 F 09/17/20 07:53 Pulse 60 09/17/20 08:24 Resp 22 H 09/17/20 07:53 BP 132/76 09/17/20 07:53 Pulse Ox 98 09/17/20 07:53 Body Mass Index 35.6 Const: Other: Constitutional : Alert, oriented, not in distress Neck : Normal inspection, Supple Cardiovascular : RRR, S1 S2, no lower extremity edema Respiratory : For bilateral air entry, no crackles, bilateral fine scattered wheezes or rhonchi Gastrointestinal: soft, lax, Normal bowel sounds, Non tender Skin : Warm/Dry, No rash Neurological : Alert & oriented x3, No focal deficit DS: Data Data Completed and Pending Labs on day of discharge: Laboratory Results - last 24 hr 09/16/20 09/16/20 09/16/20 11:33 16:03 20:24 WBC RBC Hgb Hct MCV MCH MCHC RDW Plt Count MPV Absolute Nucleated RBC Nucleated RBC % (auto) Sodium Potassium Chloride Carbon Dioxide Anion Gap BUN Creatinine Estim Creat Clear Calc Estimated GFR POC Glucose 293 H 332 H 335 H Random Glucose Calcium 09/17/20 09/17/20 09/17/20 05:18 05:18 07:51 WBC 15.5 H RBC 4.11 L Hgb 11.7 L Hct 35.6 L MCV 86.6 MCH 28.5 MCHC 32.9 RDW 13.2 Plt Count 345 MPV 11.0 Absolute Nucleated RBC 0.000 Nucleated RBC % (auto) 0.0 Sodium 135 Potassium 5.2 H Chloride 102 Carbon Dioxide 26 Anion Gap 12 BUN 12 Creatinine 0.76 Estim Creat Clear Calc 127.5 Estimated GFR > 60 POC Glucose 303 H Random Glucose 331 H Calcium 9.0 Preliminary micro results at discharge 09/15/20 13:42 Blood Culture - Preliminary Blood - Venous No growth after 24 hours. 09/15/20 13:17 Blood Culture - Preliminary Blood - Venous No growth after 24 hours. Discharge Plan Discharge Patient Disposition: Home, Self-Care Discharge Diagnosis: Asthma exacerbation RSV viral infection Pneumonia Referrals: [facility] [Primary Care Provider] - 1 Week Discharge Medications: New prednisone 20 mg Tablet 40 mg PO DAILY 3 Days Qty: 6 RF: 0 dextromethorphan-guaifenesin 10-100 mg/5 mL Syrup 5 ml PO Q6H PRN (Reason: Cough) 3 Days RF: 0 doxycycline monohydrate 100 mg capsule 100 mg PO BID Qty: 6 RF: 0 Continued cetirizine 10 mg tablet 1 tab PO DAILY PRN (Reason: allergies) RF: 0 gabapentin 300 mg capsule 1 cap PO DAILY RF: 0 omeprazole 20 mg capsule,delayed release(DR/EC) 1 cap PO DAILY PRN (Reason: Acid Reflux) RF: 0 ergocalciferol (vitamin D2) 1,250 mcg (50,000 unit) capsule 1,250 mcg PO QWEEK RF: 0 albuterol sulfate 90 mcg/actuation HFA aerosol inhaler 2 puff inhalation Q4-6H PRN (Reason: respiratory symptoms) RF: 0 lisinopril 2.5 mg tablet 1 tab PO DAILY RF: 0 Flovent HFA 110 mcg/actuation HFA aerosol inhaler 1 PO BID RF: 0 hydroxyzine pamoate 25 mg capsule 1 cap PO BEDTIME PRN (Reason: Insomnia) RF: 0 Lantus Solostar U-100 Insulin 100 unit/mL (3 mL) insulin pen 34 unit subcut QPM RF: 0 Trulicity 0.75 mg/0.5 mL pen injector 0.75 mg subcut QWEEK RF: 0 Discharge Orders: Discharge Order (Routine); Ordered 09/17/20 Ordered By: Rosi Martin Diet: advance to usual diet Activity on Discharge: As tolerated Stand Alone Forms: Patient Portal Discharge page Care Plan Goals: Read below Health Concerns: Read below Plan of Treatment: You were admitted for evaluation of wheezes and difficulty breathing. Found to be in asthma exacerbation as a result of RSV infection. Treated with steroids and nebulizers with good response Chest x-ray was concerning for possible pneumonia so you were started on ant ibiotics with good response over the course of hospital stay. Assessment: Continue prednisone and doxycycline as prescribed Continue home medications
--- NOTE | 2020-09-17 11:31 | MHC.CM.PN ---
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
[2020-09-17 11:41] LABS: Glucose, Whole Blood 328 mg/dL (60-115)
[2020-09-17 12:52] LABS: Anion Gap 14 (12-20); Blood Urea Nitrogen 13 mg/dL (9-16); Calcium 9.4 mg/dL (8.4-10.2); Carbon Dioxide 25 mmol/L (22-29); Chloride 101 mmol/L (96-108); Creatinine Clr Calc Pharmacy 125.9; Estimated Glomerular Filt Rate > 60; Glucose Random 333 mg/dL (60-115); Potassium 4.7 mmol/L (3.3-5.1); Sodium 135 mmol/L (135-145)
== END 2020-09-17 13:07 | disposition home or self-care (01) | DRG 720 ==
LOC: HO.ED 14:52 → HO.EDOVER 15:29 → HO.IMC 20:06 → HO.S3 09-17 07:25
PROVIDERS: Physician Assistant Medical; Admitting Provider Physician Assistant Medical; Emergency Provider Student in an Organized Health Care Education/Training Program; Visit Provider Student in an Organized Health Care Education/Training Program
DX: A41.89 Other specified sepsis (principal); J12.1 Respiratory syncytial virus pneumonia; J45.901 Unspecified asthma with (acute) exacerbation; B97.4 Respiratory syncytial virus as the cause of diseases classified elsewhere; E11.65 Type 2 diabetes mellitus with hyperglycemia; D72.829 Elevated white blood cell count, unspecified; F17.210 Nicotine dependence, cigarettes, uncomplicated; E66.9 Obesity, unspecified; Z20.822 Contact with and (suspected) exposure to COVID-19; Z68.37 Body mass index [BMI] 37.0-37.9, adult; Z71.6 Tobacco abuse counseling; Z79.4 Long term (current) use of insulin; Z79.51 Long term (current) use of inhaled steroids; Z79.899 Other long term (current) drug therapy
CPT/HCPCS: 0241U; 36415; 71045; 80048; 80053; 81001; 82947; 83605; 83735; 83880; 85025; 85027; 87040; 93005; 94640; 94644; 99285; J0696; J1650; J2405; J2920; J2930; J3475

== ENCOUNTER 2020-12-16 10:29 | Outpatient (REF) | payer MEDICAID, SELFPAY ==
--- NOTE | ~2020-12-16 | US_ITS ---
EXAMINATION: US ABDOMEN COMPLETE CLINICAL INFORMATION: Abnormal level serum enzymes. Hematuria. COMPARISON: Abdominal ultrasound 10/06/2012 TECHNIQUE: Real-time imaging of the abdominal viscera. FINDINGS: PANCREAS: Normal. ABDOMINAL AORTA: The proximal abdominal aorta is normal in caliber. The mid and distal aorta are not well visualized due to bowel gas. INFERIOR VENA CAVA: Visualized portions are normal. LIVER: The liver is normal in size. The liver contour is normal. Liver echotexture is increased. No focal hepatic lesion. There is no intrahepatic biliary duct dilatation seen. GALLBLADDER: The gallbladder is physiologically distended. There is a gallstone in the gallbladder measuring 2 x 2.5 cm. No evidence of gallbladder wall thickening or pericholecystic fluid. COMMON BILE DUCT: Normal in caliber measuring 0.58 cm in diameter. RIGHT KIDNEY: Normal. No hydronephrosis. No renal calculi or focal parenchymal lesions. The kidney measures 13.0 cm in maximum dimension. LEFT KIDNEY: Normal. No hydronephrosis. No renal calculi or focal parenchymal lesions. The kidney measures 13.1 cm in maximum dimension. SPLEEN: Normal. The spleen measures 11.1 cm in maximum dimension. FREE FLUID: None. US/US abdomen complete IMPRESSION: Gallstone. Echogenic liver probably representing fatty infiltration. Limited visualization of the mid and distal abdominal aorta.
== END 2020-12-16 10:30 | disposition home or self-care (01) ==
LOC: HO.US 10:29
PROVIDERS: Visit Provider Family Medicine
DX: R31.9 Hematuria, unspecified (principal); R74.8 Abnormal levels of other serum enzymes
CPT/HCPCS: 76700

== ENCOUNTER 2020-12-17 08:57 | Outpatient (REF) | payer MEDICAID, SELFPAY ==
--- NOTE | ~2020-12-17 | US_ITS ---
EXAMINATION: US PELVIS LIMITED (BLADDER) CLINICAL INFORMATION: Hematuria. COMPARISON: Ultrasound abdomen complete 12/16/2020. Pelvic ultrasound 04/13/2018. TECHNIQUE: Real-time imaging of the bladder. FINDINGS: BLADDER: Partially distended. There may be mild diffuse bladder wall thickening. No stone or mass is seen. Bilateral ureteral jets are demonstrated. Prevoid bladder volume is 102.9 mL. Postvoid bladder volume is 2.6 mL. US/US bladder IMPRESSION: The bladder is not optimally distended. There is question of mild diffuse bladder wall thickening.
== END 2020-12-17 08:58 | disposition home or self-care (01) ==
LOC: HO.US 08:57
PROVIDERS: Visit Provider Family Medicine
DX: R31.9 Hematuria, unspecified (principal); R74.8 Abnormal levels of other serum enzymes
CPT/HCPCS: 76857

== ENCOUNTER 2021-01-29 09:42 | Outpatient (REF) | payer MEDICAID, SELFPAY ==
--- NOTE | 2021-01-29 09:46 | EMG_ITS ---
This is a 35-year-old woman with bilateral hand numbness for a few months. Neurological examination is normal. No Tinel or Phalen sign. IMPRESSION: Rule out carpal tunnel syndrome. Nerve conduction EMG study: Mild carpal tunnel syndrome on the left. Early carpal tunnel syndrome on the right. Normal EMG of the left C5-T1 innervated muscles. MD CITLALY Mosley/SANDRO / [id number]
== END 2021-01-29 09:43 | disposition home or self-care (01) ==
LOC: HO.NEURO 09:42
PROVIDERS: PCP Family Medicine; Visit Provider Orthopaedic Surgery
DX: R20.0 Anesthesia of skin (principal); R20.2 Paresthesia of skin
CPT/HCPCS: 95885; 95913

== ENCOUNTER → 2021-02-05 13:00 | Outpatient (BNVA) | payer MEDICAID, SELFPAY | PROVIDERS: PCP Family Medicine; Visit Provider Orthopaedic Surgery | DX: G56.03 Carpal tunnel syndrome, bilateral upper limbs (principal) | CPT/HCPCS: 99202 ==

== ENCOUNTER 2021-04-08 11:43 | Inpatient (IN) | payer MEDICAID, SELFPAY ==
--- NOTE | ~2021-04-08 | MR_ITS ---
EXAMINATION: MRI OF THE LEFT FOOT WITHOUT AND WITH CONTRAST CLINICAL INFORMATION: Osteomyelitis 4th and 5th metatarsals. COMPARISON: None. TECHNIQUE: MRI of the left foot was performed before and after contrast. 10 mL of Gadavist was given intravenously for the contrast portion of the exam. The [id number] includes the midfoot and forefoot. FINDINGS: SUBCUTANEOUS SOFT TISSUES: There is a focal area of abnormal signal along the dorsal subcutaneous soft tissues between the 4th and 5th toes at the level of the 4th metatarsophalangeal joint. There may be a small overlying blister or ulceration at the skin. Deep to this skin abnormality is a focal area of abnormal signal measuring 7 mm transverse, 11 mm AP and 9 mm craniocaudal. The more superficial fluid-appearing collection measures 7 mm transverse, 3 mm AP and 9 mm craniocaudal. See short axis coronal image 18 series 5. This focus is dark and T1, heterogeneously bright on T2 and demonstrates heterogeneous but predominantly peripheral enhancement. There is also generalized abnormal decreased T1, increased T2 signal with enhancement of the surrounding subcutaneous soft tissues compatible with cellulitis. There is some additional nonenhancing fluid signal along the dorsal aspect of the foot compatible with concomitant generalized edema. BONE AND JOINTS: As noted above, there is no marrow abnormality noted in the 4th and 5th digits as well as throughout the remaining visualized foot. The adjacent proximal 4th and 5th phalanges and metatarsophalangeal joints are normal in signal without cortical abnormality of periostitis. MR/MR foot LT wo/w con IMPRESSION: No evidence of osteomyelitis with specific attention made to the 4th and 5th digits given the clinical indication. There is, however, a focal area of signal abnormality most compatible with a complex fluid collection along the dorsal aspect of the foot at the level of the 4th and 5th phalanges and metatarsophalangeal joints with an overlying fluid collection, likely blister or ulcer. This subcutaneous abnormality most likely reflects an abscess with surrounding cellulitis.
[2021-04-08 12:51] VITALS: BP 124/56; PULSE 91; RESP 20; TEMP 36.6; O2SAT 97; BMI 41.5
[2021-04-08 13:53] LABS: Hematocrit 42.6 % (37.0-47.0); Hemoglobin 14.1 g/dl (12.0-16.0); Mean Corpuscular HGB Conc 33.1 g/dl (31.0-35.0); Mean Corpuscular Hemoglobin 28.6 pg (27.0-33.0); Mean Corpuscular Volume 86.4 fL (80.0-98.0); Platelet Count 338 X10*3/uL (160-400); Red Blood Count 4.93 X10*6/uL (4.20-5.50); Red Cell Distribution Width 12.9 % (11.0-16.0); White Blood Count 14.6 X10*3/uL (4.8-10.8)
[2021-04-08 14:13] LABS: Anion Gap 13 (12-20); Blood Urea Nitrogen 8 mg/dL (9-16); Calcium 9.1 mg/dL (8.4-10.2); Carbon Dioxide 28 mmol/L (22-29); Chloride 98 mmol/L (96-108); Creatinine Clr Calc Pharmacy 123.3; Estimated Glomerular Filt Rate > 60; Glucose Random 313 mg/dL (60-115); Potassium 4.6 mmol/L (3.3-5.1); Sodium 134 mmol/L (135-145)
--- NOTE | 2021-04-08 15:46 | ED_ITS ---
HPI - Wound/Laceration General Chief Complaint: Wound/Laceration Stated Complaint: Pain In Both Feet No Injury Time Seen by Provider: 04/08/21 15:45 Source: patient Mode of arrival: ambulatory Limitations: no limitations History of Present Illness HPI narrative: 3 days of infection between 5 and 4 toes. Between the toes she did not know that she had fungus infection. Patient does not check her sugar at home. P atient noticed that the foot was getting red not fever no chills. Onset (ago): day(s) Patient tetanus UTD: Yes Related Data Home Medications Medication Instructions Recorded Confirmed albuterol sulfate 90 mcg/actuation 2 puff INHALATION Q4-6H PRN 09/15/20 09/15/20 aerosol inhaler cetirizine 10 mg tablet 1 tab PO DAILY PRN 09/15/20 09/15/20 dulaglutide 0.75 mg/0.5 mL 0.75 mg SUBCUT QWEEK 09/15/20 09/15/20 subcutaneous pen injector (Trulicity) ergocalciferol (vitamin D2) 1,250 1,250 mcg PO QWEEK 09/15/20 09/15/20 mcg (50,000 unit) capsule fluticasone propionate 110 1 PO BID 09/15/20 mcg/actuation HFA aerosol inhaler (Flovent HFA) gabapentin 300 mg capsule 1 cap PO DAILY 09/15/20 09/15/20 hydroxyzine pamoate 25 mg capsule 1 cap PO BEDTIME PRN 09/15/20 09/15/20 insulin glargine 100 unit/mL (3 34 unit SUBCUT QPM 09/15/20 09/15/20 mL) subcutaneous pen (Lantus Solostar U-100 Insulin) lisinopril 2.5 mg tablet 1 tab PO DAILY 09/15/20 09/15/20 omeprazole 20 mg capsule,delayed 1 cap PO DAILY PRN 09/15/20 09/15/20 release Previous Rx's Medication Instructions Recorded dextromethorphan-guaifenesin 10 5 ml PO Q6H PRN 3 Days ml 09/17/20 mg-100 mg/5 mL oral syrup doxycycline monohydrate 100 mg 100 mg PO BID #6 cap 09/17/20 capsule prednisone 20 mg tablet 40 mg PO DAILY 3 Days #6 tab 09/17/20 Allergies Allergy/AdvReac Type Severity Reaction Status Date / Time No Known Allergies Allergy Verified 02/05/21 13:36 Review of Systems Constitutional: Constitutional: Reports no additional constitutional complaints Eyes: Eyes: Reports no additional eye complaints ENT: Denies dizziness Cardiovascular: Cardiovascular: Reports no additional cardiovascular complaints Respiratory: Respiratory: Reports as per HPI Gastrointestinal: Gastrointestinal: Reports no additional gastrointestinal complaints Genitourinary: Genitourinary: Reports no additional female genitourinary complaints Musculoskeletal: Musculoskeletal: Reports no additional musculoskeletal complaints Integumentary/Breasts: Skin/Breast: Denies rash Neurologic: Reports system reviewed and no additional complaints, except as documented, Denies dizziness and Denies Sensory deficit (Neuro) Psychiatric: Psychiatric: Denies anxiety [facility] Past Medical History Medical History Asthma Diabetes Family History Family History Other Asthma Social History Social History Household Members: Spouse Household Members Other:: and sister Housing: Apartment Do you presently have visiting nurse or other home services: No Alcohol intake: current Alcohol intake frequency: holidays/special occasions only Patient Tobacco Use Status: Current everyday Tobacco user Tobacco use type: Cigarette Cigarettes Per Day: 2 Advance Directives: No Advance Directives Information Provided: No Patient : No service: No Current occupational status: employed 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 Physical Exam Vital Signs: Vital Signs: Last Vital Signs Temp 98.3 F 04/08/21 16:29 Pulse 72 04/08/21 16:29 Resp 16 04/08/21 16:29 BP 132/88 04/08/21 16:29 Pulse Ox 98 04/08/21 16:29 BMI result Body Mass Index 41.5 Const: Nutritional Appearance: obese Orientation/consciousness: oriented to person and patient oriented x3 Limitations: no limitations and language barrier HENMT: Head: Yes normal to inspection Ears: external ears normal General nose exam: Normal external nose present Mouth: Normal oral and palatal mucosa present and oropharynx normal Throat: Yes posterior oropharynx normal Eyes: General: appearance normal, both eyes and all related structures Neck: Other: supple Neck: Yes normal visual inspection Chest: Chest palpation & inspection: normal inspection of the chest Resp: Auscultation: clear to auscultation bilaterally Cardio: Jugular venous distension: no JVD Rate: regular rate Rhythm: regular rhythm Heart sounds: S1 normal heart sound present and S2 normal heart sound present GI: Inspection: Yes normal to inspection Palpation (GI): Soft to palpation, nontender and No hepatosplenomegaly present Auscultation: normal bowel sounds : General: Yes no CVA tenderness Back/Spine/Pelvis: Back: no CVA tenderness Skin: Other: left foot between 4th and 5th digit there is tinea pedis with erythema and small black necrotic area Neuro: General: oriented to person and patient oriented x3 Cranial nerves: Yes CN's II-XII intact bilaterally Motor exam (neuro): 5/5 motor strength present throughout Sensory Exam: No Sensory deficit (Neuro) Extrem: General: Yes normal to inspection Psych: Appearance: grossly normal Course Reevaluation(s) Reevaluation #1: Patient seen by Dr. Urias will obtain sedrate, CRP, and MRI of foot to rule out osteo and admit Time: 16:18 MDM - Wound/Laceration Lab Data Result diagrams: 04/08/21 13:48 04/08/21 13:48 Labs: Lab Results 04/08/21 04/08/21 Range/Units 13:48 13:48 WBC 14.6 H (4.8-10.8) X10*3/uL RBC 4.93 (4.20-5.50) X10*6/uL Hgb 14.1 (12.0-16.0) g/dl Hct 42.6 (37.0-47.0) % MCV 86.4 (80.0-98.0) fL MCH 28.6 (27.0-33.0) pg MCHC 33.1 (31.0-35.0) g/dl RDW 12.9 (11.0-16.0) % Plt Count 338 (160-400) X10*3/uL MPV 10.0 (9.4-12.3) fL Absolute Nucleated RBC 0.000 (0.0-0.012) X10*3/uL Nucleated RBC % (auto) 0.0 (0.0-0.2) /100WBC Sodium 134 L (135-145) mmol/L Potassium 4.6 (3.3-5.1) mmol/L Chloride 98 (96-108) mmol/L Carbon Dioxide 28 (22-29) mmol/L Anion Gap 13 (12-20) BUN 8 L (9-16) mg/dL Creatinine 0.80 (0.5-1.4) mg/dL Estim Creat Clear Calc 123.3 Estimated GFR > 60 Random Glucose 313 H (60-115) mg/dL Calcium 9.1 (8.4-10.2) mg/dL Critical Care Time Critical Care Time Attestation: I spent 40 minutes of critical care, with interventions, assessments, speaking to patient, consultants, and family. Discharge Plan Discharge Clinical Impression: Diabetic infection of left foot Patient Disposition: Admitted As Inpatient
[2021-04-08] MEDS: Ampicillin Sodium/Sulbactam Na 3 GM in 0.9 % Sodium Chloride 100 ML IV (16:07)
[2021-04-08] MEDS: 0.9 % Sodium Chloride 500 ML 999 ML IV (16:07)
[2021-04-08] MEDS: Insulin Lispro 100 UNIT/ML 3 ML VIAL 8 UNIT SUBCUT (16:07)
--- NOTE | 2021-04-08 16:17 | PM.CNGS ---
History of Present Illness Consult details Consult date: 04/08/21 Requesting physician: Kg Head Narrative: 35-year-old female patient with history of diabetes mellitus presenting with an infection of the left foot at the webspace of the 4th and 5th toes. Patient's diabetes is poorly controlled and she never checks her glucose levels at home. She denies any previous injuries to the foot and denies a previous history of foot infections. She presented to the emergency department because of increased pain in this location. Review of Systems Review of Systems: Yes all other systems are reviewed and are negative Musculoskeletal: Musculoskeletal: Reports as per HPI, Reports arthralgias and Reports joint swelling Integumentary/Breasts: Skin/Breast: Reports new lesions and Reports skin swelling Neurologic: Reports as per HPI PMFSH Past Medical History Medical History Asthma Diabetes Family History Family History Other Asthma Social History Social History Household Members: Spouse Household Members Other:: and sister Housing: Apartment Do you presently have visiting nurse or other home services: No Alcohol intake: current Alcohol intake frequency: holidays/special occasions only Patient Tobacco Use Status: Current everyday Tobacco user Tobacco use type: Cigarette Cigarettes Per Day: 2 Advance Directives: No Advance Directives Information Provided: No Patient : No service: No Current occupational status: employed 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 Allergies Allergy/AdvReac Type Severity Reaction Status Date / Time No Known Allergies Allergy Verified 02/05/21 13:36 Active Medications: Current Medications Ampicillin Sodium/Sulbactam (Sodium 3 gm/ Sodium Chloride) 100 mls @ 200 mls/hr IV ONCE ONE Stop: 04/08/21 16:21 Last Admin: 04/08/21 16:07 Dose: 200 mls/hr Documented by: Sodium Chloride (Ns) 500 mls @ 999 mls/hr IV .Q31M DEL Stop: 04/08/21 16:30 Last Admin: 04/08/21 16:07 Dose: 999 mls/hr Documented by: Home Medications Medication Instructions Recorded Confirmed Last Taken Type albuterol sulfate 90 mcg/actuation 2 puff INHALATION Q4-6H PRN 09/15/20 09/15/20 Unknown History aerosol inhaler cetirizine 10 mg tablet 1 tab PO DAILY PRN 09/15/20 09/15/20 Unknown History dulaglutide 0.75 mg/0.5 mL 0.75 mg SUBCUT QWEEK 09/15/20 09/15/20 4 Days Ago History subcutaneous pen injector ~09/11/20 (Trulicity) ergocalciferol (vitamin D2) 1,250 1,250 mcg PO QWEEK 09/15/20 09/15/20 1 Day Ago History mcg (50,000 unit) capsule ~09/14/20 fluticasone propionate 110 1 PO BID 09/15/20 Unknown History mcg/actuation HFA aerosol inhaler (Flovent HFA) gabapentin 300 mg capsule 1 cap PO DAILY 09/15/20 09/15/20 Unknown History hydroxyzine pamoate 25 mg capsule 1 cap PO BEDTIME PRN 09/15/20 09/15/20 Unknown History insulin glargine 100 unit/mL (3 34 unit SUBCUT QPM 09/15/20 09/15/20 Unknown History mL) subcutaneous pen (Lantus Solostar U-100 Insulin) lisinopril 2.5 mg tablet 1 tab PO DAILY 09/15/20 09/15/20 Unknown History omeprazole 20 mg capsule,delayed 1 cap PO DAILY PRN 09/15/20 09/15/20 Unknown History release Physical Exam Vital Signs: Vital Signs: Last Vital Signs Temp 98 F 04/08/21 12:51 Pulse 91 04/08/21 12:51 Resp 20 04/08/21 12:51 BP 124/56 L 04/08/21 12:51 Pulse Ox 97 04/08/21 12:51 BMI result Body Mass Index 41.5 Const: General: cooperative, comfortable and well developed Nutritional Appearance: well nourished Orientation/consciousness: patient oriented x3 HENMT: Head: Yes normocephalic and Yes atraumatic Eyes: Sclerae: sclerae normal EOM: EOMs intact bilaterally Neck: Neck: Yes normal visual inspection Resp: Effort & Inspection: normal respiratory effort, no cough, no respiratory distress and no stridor Cardio: Jugular venous distension: no JVD GI: Inspection: Yes normal to inspection Skin: General skin exam: dry skin Rashes: no rashes Neuro: General: patient oriented x3 and no focal motor deficits Extrem: Other: Area of redness with whitish discoloration in the webspace between the 4th and 5th toe, tender to palpation. There is an area surrounding measuring approximately 2 cm of erythema. Site is hard to palpation and not fluctuant. General: Yes full ROM and Yes no clubbing, cyanosis or edema Psych: Appearance: grossly normal Results Labs Result diagrams: 04/08/21 13:48 04/08/21 13:48 Labs: Abnormal lab results 04/08/21 04/08/21 Range/Units 13:48 13:48 WBC 14.6 H (4.8-10.8) X10*3/uL Sodium 134 L (135-145) mmol/L BUN 8 L (9-16) mg/dL Random Glucose 313 H (60-115) mg/dL Short CBC 04/08/21 Range/Units 13:48 WBC 14.6 H (4.8-10.8) X10*3/uL Hgb 14.1 (12.0-16.0) g/dl Hct 42.6 (37.0-47.0) % Plt Count 338 (160-400) X10*3/uL BMP 04/08/21 13:48 Sodium 134 L Potassium 4.6 Chloride 98 Carbon Dioxide 28 BUN 8 L Creatinine 0.80 Calcium 9.1 All other labs normal. Assessment and Plan (1) Diabetic infection of left foot: Status: Acute (2) Diabetes: Status: Acute Plan 35-year-old female patient with a new onset left foot infection possible abscess between the webspace of the 4th and 5th toe. Site is exquisitely tender to palpation which may indicate underlying abscess. Patient is a poorly controlled diabetic with glucose over 300. It is not clear that she is taking her medications at this time. In either case I recommended MR of the foot evaluate for osteomyelitis and underlying abscess. She will need IV antibiotics and possible incision and drainage. I will follow along during her hospitalization. Procedures Date of Service Date of Service: 04/08/21
[2021-04-08 16:29] VITALS: BP 132/88; PULSE 72; RESP 16; TEMP 36.8; O2SAT 98
--- NOTE | 2021-04-08 16:33 | PM.IMHP ---
History of Present Illness Date of Service: 04/08/21 Attending physician on admission: Cedric Surjit Chief Complaint: Foot pain 35 year old women presenting with pain and redness to her left foot between the 4th and 5th toes. 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 She looked and saw a small area of redness to the dorsum of the foot. She denied fever, chills, nausea, vomiting. She hadn't noted any drainage from the wound. WBC was elevated at 15.5, no fever noted. In the ED she was given Unasyn. She will be admitted for management of cellulitis with tinea pedis. Review of Systems Review of Systems: Denies any recent fever chills or decrease in appetite respiratory denies any shortness of breath coverage production cardiovascular denies chest pain gastrointestinal denies any dysphagia abdominal pain nausea vomiting or diarrhea genitourinary denies any dysuria frequency or hematuria musculoskeletal denies any joint pain or swelling neuropsych denies any weakness or seizures all other systems reviewed are negative REPLACED BY [facility] Medical History Asthma Diabetes Family History Other Asthma Social History Household Members: Spouse Household Members Other:: and sister Housing: Apartment Do you presently have visiting nurse or other home services: No Alcohol intake: current Alcohol intake frequency: holidays/special occasions only Patient Tobacco Use Status: Current everyday Tobacco user Tobacco use type: Cigarette Cigarettes Per Day: 2 Advance Directives: No Advance Directives Information Provided: No Patient : No service: No Current occupational status: employed 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 Allergies Allergy/AdvReac Type Severity Reaction Status Date / Time No Known Allergies Allergy Verified 02/05/21 13:36 Active Medications: Current Medications Pharmacy Consult (Consult Rx Perform Med Rec) 1 each MISCELLANE ONCE PRN PRN Reason: Consult order Home Medications Medication Instructions Recorded Confirmed Last Taken Type albuterol sulfate 90 mcg/actuation 2 puff INHALATION Q4-6H PRN 09/15/20 09/15/20 Unknown History aerosol inhaler dulaglutide 0.75 mg/0.5 mL 0.75 mg SUBCUT QWEEK 09/15/20 09/15/20 4 Days Ago History subcutaneous pen injector ~09/11/20 (Trulicity) ergocalciferol (vitamin D2) 1,250 1,250 mcg PO QWEEK 09/15/20 09/15/20 1 Day Ago History mcg (50,000 unit) capsule ~09/14/20 fluticasone propionate 110 1 PO BID 09/15/20 Unknown History mcg/actuation HFA aerosol inhaler (Flovent HFA) insulin glargine 100 unit/mL (3 34 unit SUBCUT QPM 09/15/20 09/15/20 Unknown History mL) subcutaneous pen (Lantus Solostar U-100 Insulin) lisinopril 2.5 mg tablet 1 tab PO DAILY 09/15/20 09/15/20 Unknown History omeprazole 20 mg capsule,delayed 1 cap PO DAILY PRN 09/15/20 09/15/20 Unknown History release trazodone 50 mg tablet 1 tab PO BEDTIME PRN 04/08/21 04/08/21 Unknown History Physical Exam Vital Signs and Narrative: Vital Signs: Last Vital Signs Temp 98.3 F 04/08/21 16:29 Pulse 72 04/08/21 16:29 Resp 16 04/08/21 16:29 BP 132/88 04/08/21 16:29 Pulse Ox 98 04/08/21 16:29 BMI result Body Mass Index 41.5 Appearing in no acute distress head is normocephalic atraumatic eyes pupils are PERRLA sclera is anicteric mouth throat mucous membranes are intact and moist neck is supple no lymphadenopathy, no JVD noted lung sounds are clear to auscultation heart regular rate rhythm, clear S1, S2 positive bowel sounds, abdomen is soft, nontender neuro patient is alert x3, no focal deficits Erythema and edema to left foot between 4th and 5th digits with noted tinea pedis between toes Results Labs CBC and Chem 7: 04/08/21 13:48 04/08/21 13:48 Labs: Laboratory Results - last 24 hr 04/08/21 04/08/21 13:48 13:48 MCV 86.4 MCH 28.6 MCHC 33.1 RDW 12.9 Plt Count 338 MPV 10.0 Absolute Nucleated RBC 0.000 Nucleated RBC % (auto) 0.0 Anion Gap 13 Estim Creat Clear Calc 123.3 Estimated GFR > 60 Random Glucose 313 H Calcium 9.1 Assessment and Plan (1) Cellulitis: Status: Acute Plan 35-year-old woman admitted with cellulitis to left foot between 4th and 5th digit with noted tinea pedis with hx of diabetes Cellulitis ID consult MR of foot pending Pain management wound cx Vanco and zosyn Tinea pedis Lotrimin cream to both feet Diabetes mellitus Sliding scale, ADA diet Morbid obesity. BMI 41.6 Discussed importance of weight management as this may contribute to worsening of other comorbidities DVT prophylaxis with Lovenox Full code Attending Dr. Eddy Quality Stroke Does the patient have a stroke diagnosis?: No VTE Prior VTE?: No VTE Risk Level:: Medical - moderate - high VTE Device Contraindication: Treatment Not Indicated VTE Drug Contraindication: N/A - Med Ordered
--- NOTE | 2021-04-08 16:49 | PHA.MEDREC ---
Pharmacy Consult ? Medication Reconciliation Pharmacy has completed the medication reconciliation. Patient was not a good historian, the only recent fill history was from 12/2020. The patient states she takes metformin but I do not see any fill history and she wasn't able to tell me what strength.
[2021-04-08] MEDS: Clotrimazole 1 % Cream 15 GM TUBE 1 APPL TOPICAL ×2 (17:12→23:04)
[2021-04-08 17:19] LABS: C Reactive Protein 1.64 mg/dL (< or = 0.50)
[2021-04-08 17:30] VITALS: BMI 43.3
--- NOTE | 2021-04-08 17:41 | PC.NURSE ---
SPOKE WITH JERZY THOMPSON THROUGH TIGER TEXT AND I LET HER THAT PT RECIEVED 1 DOES OF RJ WHLALITHAJ JUST COMPLETED AND SHE SAID IT WAS OK TO START TABITHA AND ANA.
[2021-04-08 17:44] LABS: Erythrocyte Sedimentation Rate 14 MM/HR (0-20)
[2021-04-08 18:32] LABS: Appearance Urine CLEAR; Color Urine YELLOW; Glucose Urine UA 100 MG/DL (NEG); Leukocyte Esterase Urine NEG (NEG); Nitrite Urine NEG (NEG); Specific Gravity - Urine >= 1.030 (1.005-1.025); UACC Culture Trigger NO; Urine Blood TRACE (NEG); Urine Ketones NEG (NEG); Urine Protein TRACE MG/DL (NEG-TRACE)
[2021-04-08 18:36] LABS: UPreg QC Valid YES; Urine Pregnancy NEGATIVE (NEGATIVE)
[2021-04-08 18:42] LABS: Bacteria Urine 2+ /LPF; Squamous Epithelial Cell Urine 2+ /LPF; WBC Urine 0-2 /HPF (0-4)
[2021-04-08] MEDS: Enoxaparin Sodium 40 MG/0.4 ML SYRINGE SUBCUT (18:44)
--- NOTE | 2021-04-08 18:48 | PHA.PROG ---
Addendum entered by Emily Min [facility] 04/08/21 22:36: VERIFIED WEIGHT WITH RN - 118 KG Original Note: Admission Date/Time: April 08, 2021 16:42 Indication: SKIN/SKIN STRUCTURE INF Weight in k.2 kg Adjusted body weight in K KG [place] body weight in K KG Obesity Dosing Indication % IBW: Serum Creatinine - Last 168 Hours 04/08/21 13:48 Creatinine 0.80 Estimated CrCl and GFR - Last 168 Hours 04/08/21 13:48 Estim Creat Clear Calc 123.3 Estimated GFR > 60 Vancomycin Loading Dose: 1500 MG Current Vancomycin Dosing Regimen: 1000 MG Q12H Vancomycin Monitoring using AUC goal of 400 - 600 range with trough as surrogate marker: PREDICTED AUC OF 444 TROUGH 12.2 Date and Time for next Vancomycin Level to be drawn: 04/10/21 @0500 Pharmacist Comments on Vancomycin Plan: USING OBESE MODEL Vancomycin dosing will take advantage of [employer] as a clinical decision support tool that uses Bayesian modeling to calculate individual patient's pharmacokinetic parameters and forecast the patient's drug concentration time course with the target goal AUC 24 range of 400 - 600 mg/L/hr.
[2021-04-08 19:02] LABS: COVID-19 Test Negative (Negative)
[2021-04-08] MEDS: vancomycin HCL 1,500 MG in 0.9 % Sodium Chloride 500 ML 333.33 MG IV (19:45)
[2021-04-08 21:14] LABS: Glucose, Whole Blood 234 mg/dL (60-115)
[2021-04-08] MEDS: Acetaminophen 325 MG TABLET 650 MG PO (21:30)
[2021-04-08] MEDS: Piperacillin Sodium/Tazobactam 3.375 GM in 0.9 % Sodium Chloride 50 ML IV (21:30)
[2021-04-08] MEDS: Insulin Glargine,Hum.rec.anlog 100 UNIT/ML 10 ML VIAL 34 UNIT SUBCUT (21:32)
[2021-04-08] MEDS: Insulin Lispro 100 UNIT/ML 3 ML VIAL SUBCUT (21:34)
[2021-04-08] MEDS: Fluticasone Propionate 100 MCG BLST.W.DEV 1 PUFF INHALE (23:04)
[2021-04-09] VITALS (7 sets, daily range): BP systolic 118–128; BP diastolic 56–86; PULSE 64–74; RESP 13–19; TEMP 36.2–37.2; O2SAT 97–100
[2021-04-09] MEDS: 0.9 % Sodium Chloride Flush 3 ML SYRINGE IVFLUSH ×4 (00:50→20:56)
--- NOTE | 2021-04-09 01:21 | PC.NURSE ---
PT COMFORTABLE IN BED CALL HIRSCH IN PLACE. PT WILL BE MOVED TO MAIN ED AND IS AWARE SOON BED AVAILABLE. REPORT GIVEN TO RITESH FUENTES WHO WILL RESUME PT CARE UNTIL MOVED.
[2021-04-09] MEDS: Piperacillin Sodium/Tazobactam 3.375 GM in 0.9 % Sodium Chloride 50 ML IV ×4 (03:44→21:19)
[2021-04-09] MEDS: traZODone HCL 50 MG TABLET PO ×2 (03:52→20:56)
--- NOTE | 2021-04-09 03:57 | PC.NURSE ---
Pt expressing frustration over not being moved upstairs. This RN explained the wait for beds. Pt requesting something to sleep, medicated with PRN Trazodone per request.
[2021-04-09] MEDS: vancomycin HCL 1,000 MG in 0.9 % Sodium Chloride 250 ML 270 MG IV ×2 (06:40→18:38)
[2021-04-09 07:13] LABS: Glucose, Whole Blood 153 mg/dL (60-115)
[2021-04-09] MEDS: Insulin Lispro 100 UNIT/ML 3 ML VIAL SUBCUT ×4 (07:17→20:56)
[2021-04-09 07:21] LABS: MANUAL DIFF FLAG NO
[2021-04-09 07:27] LABS: Basophils Absolute Auto 0.1 X10*3/uL (0.0-0.2); Basophils Percent Auto 0.4 % (0-2); Eosinophils Absolute Auto 0.5 X10*3/uL (0.0-0.4); Eosinophils Percent Auto 3.4 % (0-4); Hematocrit 37.4 % (37.0-47.0); Hemoglobin 12.2 g/dl (12.0-16.0); Imm Gran Abs Auto 0.04 X10*3/uL (0.00-0.03); Imm Gran Pct Auto 0.3 % (0.0-0.4); Lymphocytes Absolute Auto 4.3 X10*3/uL (1.2-4.9); Lymphocytes Percent Auto 30.4 % (20-40); Mean Corpuscular HGB Conc 32.6 g/dl (31.0-35.0); Mean Corpuscular Hemoglobin 28.1 pg (27.0-33.0); Mean Corpuscular Volume 86.2 fL (80.0-98.0); Monocytes Absolute Auto 1.1 X10*3/uL (0.1-1.2); Monocytes Percent Auto 7.5 % (2-11); Neutrophils Absolute Auto 8.2 x10*3/uL (2.0-8.3); Platelet Count 300 X10*3/uL (160-400); Red Blood Count 4.34 X10*6/uL (4.20-5.50); White Blood Count 14.2 X10*3/uL (4.8-10.8)
[2021-04-09 07:45] LABS: Estimated Glomerular Filt Rate > 60
[2021-04-09 07:49] LABS: Anion Gap 8 (12-20); Blood Urea Nitrogen 7 mg/dL (9-16); Calcium 8.5 mg/dL (8.4-10.2); Carbon Dioxide 29 mmol/L (22-29); Chloride 104 mmol/L (96-108); Creatinine Clr Calc Pharmacy 155.4; Estimated Glomerular Filt Rate > 60; Glucose Random 152 mg/dL (60-115); Sodium 137 mmol/L (135-145)
--- NOTE | 2021-04-09 08:23 | PHA.PROG ---
Admission Date/Time: April 08, 2021 16:42 Indication: Cellulitis Weight in k.2 kg Adjusted body weight in K.4 kg [place] body weight in K kg Obesity Dosing Indication % IBW: 207% Serum Creatinine - Last 168 Hours 04/08/21 04/09/21 04/09/21 13:48 07:17 07:17 Creatinine 0.80 0.65 0.66 Estimated CrCl and GFR - Last 168 Hours 04/08/21 04/09/21 04/09/21 13:48 07:17 07:17 Estim Creat Clear Calc 123.3 155.4 153.0 Estimated GFR > 60 > 60 > 60 Vancomycin Loading Dose: 1500 mg Current Vancomycin Dosing Regimen: 1000 mg Q12H Date and Time for next Vancomycin Level to be drawn: 04/10 @ 0500 Pharmacist Comments on Vancomycin Plan: Renal function stable Expected AUC 444 with a trough of 12.2. Continue same regimen Trough to be drawn before 4th dose Pharmacy to continue monitor renal function. Diana Hawkins, CoryD Vancomycin dosing will take advantage of [employer] as a clinical decision support tool that uses Bayesian modeling to calculate individual patient's pharmacokinetic parameters and forecast the patient's drug concentration time course with the target goal AUC 24 range of 400 - 600 mg/L/hr.
[2021-04-09] MEDS: Acetaminophen 325 MG TABLET 650 MG PO (10:06)
[2021-04-09] MEDS: lisinopriL 2.5 MG TABLET PO (10:07)
--- NOTE | 2021-04-09 10:22 | PC.NURSE ---
call placed to pharmacy for Lotrimin - will bring to pts on S3
[2021-04-09] MEDS: Clotrimazole 1 % Cream 15 GM TUBE 1 APPL TOPICAL ×2 (10:51→21:19)
[2021-04-09 11:27] LABS: Glucose, Whole Blood 153 mg/dL (60-115)
--- NOTE | 2021-04-09 12:09 | MHC.CLN ---
NUTRITION WEIGHT LOSS REPORTED BY PATIENT. REVIEW OF WEIGHT HX SHOWS VARIABLE WEIGHTS: 04/08/21=118.2 KG; 09/16/20=103.1 KG AND 09/15/20-108.9 KG. SHOWS WEIGHT GAIN X 6 MONTHS OF AT LEAST 8.5%. FOOT WITH CELLULITIS. DIET=DIABETIC 2000 KCAL, APPROPRIATE. NO ADDITIONAL NUTRITION INTERVENTIONS AT THIS TIME.
--- NOTE | 2021-04-09 13:08 | MHC.CM.PN ---
with intermeaghanr met with pt and her pt is inpoeent and working it is not expected that servceis will be needed
--- NOTE | 2021-04-09 13:16 | HO.PM.IMPN ---
Subjective Subjective Date of Service: 04/09/21 Review of Systems Follow up cellulitis Physical Exam Vital Signs: Vital Signs: Last Vital Signs Temp 97.8 F 04/09/21 10:57 Pulse 68 04/09/21 10:57 Resp 19 04/09/21 10:57 BP 118/80 04/09/21 10:57 Pulse Ox 98 04/09/21 10:57 BMI result Body Mass Index 43.3 Appearing in no acute distress lung sounds are clear to auscultation heart regular rate rhythm, clear S1, S2 positive bowel sounds, abdomen is soft, nontender neuro patient is alert x3, no focal deficits Erythema and edema to left foot between 4th and 5th digits with noted tinea pedis between toes Objective Data Active Medications Acetaminophen (Acetaminophen 325 Mg Tablet) 650 mg PO Q6H PRN PRN Reason: Pain, Mild (Pain Scale 1-3) Last Admin: 04/09/21 10:06 Dose: 650 mg Documented by: MARISOL Albuterol Sulfate (Albuterol Sulfate 90 Mcg 8 Gm Inhaler) 2 puff INHALE Q4H PRN PRN Reason: respiratory symptoms Clotrimazole (Clotrimazole 1 % Cream 15 Gm Tube) 1 appl TOPICAL BID [facility]; Protocol Last Admin: 04/09/21 10:51 Dose: 1 appl Documented by: ROCHELLE Dextrose (Dextrose 50 % 25 Gm/50 Ml Syringe) 25 gm IVPUSH Q15M PRN; Protocol PRN Reason: per Hypoglycemia Standing Ord. Enoxaparin Sodium (Enoxaparin Sodium 40 Mg/0.4 Ml Syringe) 40 mg SUBCUT Q24H [facility] Last Admin: 04/08/21 18:44 Dose: 40 mg Documented by: ABBIE Ergocalciferol (Ergocalciferol (Vitamin D2) 1,250 Mcg Capsule) 1,250 mcg PO Azul@0900 [facility] Fluticasone Propionate (Fluticasone Propionate 100 Mcg Blst.W.Dev) 1 puff INHALE BID [facility] Last Admin: 04/09/21 09:10 Dose: Not Given Documented by: ALY Non-Admin Reason: Patient Refused Glucose (Glucose Gel 15 Gm Gel..Gram.) 15 gm PO Q15M PRN; Protocol PRN Reason: per Hypoglycemia Standing Ord. Vancomycin HCl 1,000 mg/ (Sodium Chloride) 270 mls @ 270 mls/hr IV Q12H [facility] Last Infusion: 04/09/21 08:00 Dose: 0 mls/hr Documented by: MARISOL Piperacillin Sod/Tazobactam (Sod 3.375 gm/ Sodium Chloride) 50 mls @ 100 mls/hr IV Q6H [facility] Last Infusion: 04/09/21 10:50 Dose: 0 mls/hr Documented by: ROCHELLE Insulin Glargine (Insulin Glargine,Hum.Rec.Anlog 100 Unit/Ml 10 Ml Vial) 34 unit SUBCUT BEDTIME [facility] Last Admin: 04/08/21 21:32 Dose: 34 unit Documented by: MALENA Insulin Human Lispro (Insulin Lispro 100 Unit/Ml 3 Ml Vial) 0 unit SUBCUT QIDACHS [facility]; Protocol Last Admin: 04/09/21 11:32 Dose: 2 unit Documented by: ROCHELLE Lisinopril (Lisinopril 2.5 Mg Tablet) 2.5 mg PO DAILY [facility]; Protocol Last Admin: 04/09/21 10:07 Dose: 2.5 mg Documented by: MARISOL Omeprazole (Omeprazole 20 Mg Capsule.Dr) 20 mg PO DAILY PRN PRN Reason: Acid Reflux Ondansetron HCl (Ondansetron Hcl 4 Mg/2 Ml Vial) 4 mg IVPUSH Q8H PRN PRN Reason: Nausea and Vomiting Pharmacy Consult (Consult Rx Perform Med Rec) 1 each MISCELLANE ONCE PRN PRN Reason: Consult order Pharmacy Consult (Consult Rx Vancomycin Dosing) 1 each MISCELLANE DAILY PRN PRN Reason: Consult order Sodium Chloride (0.9 % Sodium Chloride Flush 3 Ml Syringe) 3 ml IVFLUSH QSHIFT [facility] Last Admin: 04/09/21 10:07 Dose: 3 ml Documented by: MARISOL Trazodone HCl (Trazodone Hcl 50 Mg Tablet) 50 mg PO BEDTIME PRN PRN Reason: insomnia Last Admin: 04/09/21 03:52 Dose: 50 mg Documented by: TANIA Labs CBC & Chem 7: 04/09/21 07:17 04/09/21 07:17 Labs: Laboratory Results - last 24 hr 04/08/21 04/08/21 04/08/21 13:48 13:48 16:59 MCV 86.4 MCH 28.6 MCHC 33.1 RDW 12.9 Plt Count 338 MPV 10.0 Immature Gran % (Auto) Neut % (Auto) Lymph % (Auto) [place] % (Auto) Eos % (Auto) Baso % (Auto) Lymph # (Auto) [place] # (Auto) Eos # (Auto) Baso # (Auto) Abs Immat Gran (auto) Absolute Neuts (auto) Absolute Nucleated RBC 0.000 Nucleated RBC % (auto) 0.0 ESR 14 Anion Gap 13 Estim Creat Clear Calc 123.3 Estimated GFR > 60 POC Glucose Random Glucose 313 H Calcium 9.1 C-Reactive Protein Urine Color Urine Appearance Urine pH Ur Specific [place] Urine Protein Urine Glucose (UA) Urine Ketones Urine Blood Urine Nitrite Ur Leukocyte Esterase Urine RBC Urine WBC Ur Squamous Epith Cells Urine Bacteria Urine Test COVID-19 (TRACEY) COVID-19 [employer] 04/08/21 04/08/21 04/08/21 16:59 18:19 18:19 MCV MCH MCHC RDW Plt Count MPV Immature Gran % (Auto) Neut % (Auto) Lymph % (Auto) [place] % (Auto) Eos % (Auto) Baso % (Auto) Lymph # (Auto) [place] # (Auto) Eos # (Auto) Baso # (Auto) Abs Immat Gran (auto) Absolute Neuts (auto) Absolute Nucleated RBC Nucleated RBC % (auto) ESR Anion Gap Estim Creat Clear Calc Estimated GFR POC Glucose Random Glucose Calcium C-Reactive Protein 1.64 H Urine Color YELLOW Urine Appearance CLEAR Urine pH 6.0 Ur Specific [place] >= 1.030 H Urine Protein TRACE Urine Glucose (UA) 100 H Urine Ketones NEG Urine Blood TRACE Urine Nitrite NEG Ur Leukocyte Esterase NEG Urine RBC 5-9 H Urine WBC 0-2 Ur Squamous Epith Cells 2+ Urine Bacteria 2+ Urine Test NEGATIVE COVID-19 (TRACEY) COVID-19 [employer] 04/08/21 04/08/21 04/09/21 18:40 21:08 07:10 MCV MCH MCHC RDW Plt Count MPV Immature Gran % (Auto) Neut % (Auto) Lymph % (Auto) [place] % (Auto) Eos % (Auto) Baso % (Auto) Lymph # (Auto) [place] # (Auto) Eos # (Auto) Baso # (Auto) Abs Immat Gran (auto) Absolute Neuts (auto) Absolute Nucleated RBC Nucleated RBC % (auto) ESR Anion Gap Estim Creat Clear Calc Estimated GFR POC Glucose 234 H 153 H Random Glucose Calcium C-Reactive Protein Urine Color Urine Appearance Urine pH Ur Specific [place] Urine Protein Urine Glucose (UA) Urine Ketones Urine Blood Urine Nitrite Ur Leukocyte Esterase Urine RBC Urine WBC Ur Squamous Epith Cells Urine Bacteria Urine Test COVID-19 (TRACEY) Negative COVID-19 Clin Com See Note 04/09/21 04/09/21 04/09/21 07:17 07:17 07:17 MCV 86.2 MCH 28.1 MCHC 32.6 RDW 13.0 Plt Count 300 MPV 10.0 Immature Gran % (Auto) 0.3 Neut % (Auto) 58.0 Lymph % (Auto) 30.4 [place] % (Auto) 7.5 Eos % (Auto) 3.4 Baso % (Auto) 0.4 Lymph # (Auto) 4.3 [place] # (Auto) 1.1 Eos # (Auto) 0.5 H Baso # (Auto) 0.1 Abs Immat Gran (auto) 0.04 H Absolute Neuts (auto) 8.2 Absolute Nucleated RBC 0.000 Nucleated RBC % (auto) 0.0 ESR Anion Gap 8 L Estim Creat Clear Calc 155.4 153.0 Estimated GFR > 60 > 60 POC Glucose Random Glucose 152 H Calcium 8.5 D C-Reactive Protein Urine Color Urine Appearance Urine pH Ur Specific [place] Urine Protein Urine Glucose (UA) Urine Ketones Urine Blood Urine Nitrite Ur Leukocyte Esterase Urine RBC Urine WBC Ur Squamous Epith Cells Urine Bacteria Urine Test COVID-19 (TRACEY) COVID-19 Clin Com 04/09/21 11:23 MCV MCH MCHC RDW Plt Count MPV Immature Gran % (Auto) Neut % (Auto) Lymph % (Auto) [place] % (Auto) Eos % (Auto) Baso % (Auto) Lymph # (Auto) [place] # (Auto) Eos # (Auto) Baso # (Auto) Abs Immat Gran (auto) Absolute Neuts (auto) Absolute Nucleated RBC Nucleated RBC % (auto) ESR Anion Gap Estim Creat Clear Calc Estimated GFR POC Glucose 153 H Random Glucose Calcium C-Reactive Protein Urine Color Urine Appearance Urine pH Ur Specific [place] Urine Protein Urine Glucose (UA) Urine Ketones Urine Blood Urine Nitrite Ur Leukocyte Esterase Urine RBC Urine WBC Ur Squamous Epith Cells Urine Bacteria Urine Test COVID-19 (TRACEY) COVID-19 Clin Com Assessment and Plan (1) Cellulitis: Status: Acute Plan 35-year-old woman admitted with cellulitis to left foot between 4th and 5th digit with noted tinea pedis with hx of diabetes Cellulitis ID consult MR of foot pending Pain management wound cx Vanco and zosyn Tinea pedis Lotrimin cream to both feet Diabetes mellitus Sliding scale, ADA diet Morbid obesity.? BMI 41.6 Discussed importance of weight management as this may contribute to worsening of other comorbidities DVT prophylaxis with Lovenox Full code Attending Dr. Martin Quality Stroke Does the patient have a stroke diagnosis?: No VTE Prior VTE?: No VTE Risk Level:: Medical - moderate - high VTE Device Contraindication: Treatment Not Indicated VTE Drug Contraindication: N/A - Med Ordered
[2021-04-09] MEDS: Morphine Sulfate 2 MG/ML CARTRIDGE IVPUSH ×2 (13:45→20:55)
[2021-04-09 15:45] LABS: Glucose, Whole Blood 198 mg/dL (60-115)
--- NOTE | 2021-04-09 16:27 | P.CNID_ITS ---
History of Present Illness Data of Consult Service Date: 04/09/21 Requesting physician: Vika Grande Primary Care Provider: [facility] Reason for consult: left diabetic foot infection She presents to hospital with three to four days redness and discomfort fourth/fifth interdigital space. She has no fever or chills. She has neuropathy and doesnt feel sensation well. Review of Systems Review of Systems: Yes all other systems are reviewed and are negative [facility] Past Medical History Medical History Asthma Diabetes Family History Family History Other Asthma Family history: reviewed and not pertinent Social History Social History Household Members: Family Household Members Other:: and sister Housing: Apartment Do you presently have visiting nurse or other home services: No Alcohol intake: current Alcohol intake frequency: holidays/special occasions only Patient Tobacco Use Status: Current everyday Tobacco user Tobacco use type: Cigarette Cigarettes Per Day: 2 service: No Current occupational status: employed 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 Allergies Allergy/AdvReac Type Severity Reaction Status Date / Time No Known Allergies Allergy Verified 02/05/21 13:36 Active Medications: Current Medications Acetaminophen (Acetaminophen 325 Mg Tablet) 650 mg PO Q6H PRN PRN Reason: Pain, Mild (Pain Scale 1-3) Last Admin: 04/09/21 10:06 Dose: 650 mg Documented by: Albuterol Sulfate (Albuterol Sulfate 90 Mcg 8 Gm Inhaler) 2 puff INHALE Q4H PRN PRN Reason: respiratory symptoms Clotrimazole (Clotrimazole 1 % Cream 15 Gm Tube) 1 appl TOPICAL BID [facility]; Protocol Last Admin: 04/09/21 10:51 Dose: 1 appl Documented by: Dextrose (Dextrose 50 % 25 Gm/50 Ml Syringe) 25 gm IVPUSH Q15M PRN; Protocol PRN Reason: per Hypoglycemia Standing Ord. Enoxaparin Sodium (Enoxaparin Sodium 40 Mg/0.4 Ml Syringe) 40 mg SUBCUT Q24H [facility] Last Admin: 04/08/21 18:44 Dose: 40 mg Documented by: Ergocalciferol (Ergocalciferol (Vitamin D2) 1,250 Mcg Capsule) 1,250 mcg PO Azul@0900 [facility] Fluticasone Propionate (Fluticasone Propionate 100 Mcg Blst.W.Dev) 1 puff INHALE BID [facility] Last Admin: 04/09/21 09:10 Dose: Not Given Documented by: Glucose (Glucose Gel 15 Gm Gel..Gram.) 15 gm PO Q15M PRN; Protocol PRN Reason: per Hypoglycemia Standing Ord. Vancomycin HCl 1,000 mg/ (Sodium Chloride) 270 mls @ 270 mls/hr IV Q12H [facility] Last Infusion: 04/09/21 08:00 Dose: Infused Documented by: Piperacillin Sod/Tazobactam (Sod 3.375 gm/ Sodium Chloride) 50 mls @ 100 mls/hr IV Q6H [facility] Last Admin: 04/09/21 15:51 Dose: 100 mls/hr Documented by: Insulin Glargine (Insulin Glargine,Hum.Rec.Anlog 100 Unit/Ml 10 Ml Vial) 34 unit SUBCUT BEDTIME [facility] Last Admin: 04/08/21 21:32 Dose: 34 unit Documented by: Insulin Human Lispro (Insulin Lispro 100 Unit/Ml 3 Ml Vial) 0 unit SUBCUT QIDACHS [facility]; Protocol Last Admin: 04/09/21 11:32 Dose: 2 unit Documented by: Lisinopril (Lisinopril 2.5 Mg Tablet) 2.5 mg PO DAILY [facility]; Protocol Last Admin: 04/09/21 10:07 Dose: 2.5 mg Documented by: Morphine Sulfate (Morphine Sulfate 2 Mg/Ml Cartridge) 2 mg IVPUSH Q4H PRN; Protocol PRN Reason: pain Last Admin: 04/09/21 13:45 Dose: 2 mg Documented by: Omeprazole (Omeprazole 20 Mg Capsule.Dr) 20 mg PO DAILY PRN PRN Reason: Acid Reflux Ondansetron HCl (Ondansetron Hcl 4 Mg/2 Ml Vial) 4 mg IVPUSH Q8H PRN PRN Reason: Nausea and Vomiting Pharmacy Consult (Consult Rx Perform Med Rec) 1 each MISCELLANE ONCE PRN PRN Reason: Consult order Pharmacy Consult (Consult Rx Vancomycin Dosing) 1 each MISCELLANE DAILY PRN PRN Reason: Consult order Sodium Chloride (0.9 % Sodium Chloride Flush 3 Ml Syringe) 3 ml IVFLUSH QSHIFT [facility] Last Admin: 04/09/21 13:47 Dose: 3 ml Documented by: Trazodone HCl (Trazodone Hcl 50 Mg Tablet) 50 mg PO BEDTIME PRN PRN Reason: insomnia Last Admin: 04/09/21 03:52 Dose: 50 mg Documented by: Home Medications Medication Instructions Recorded Confirmed Last Taken Type albuterol sulfate 90 mcg/actuation 2 puff INHALATION Q4-6H PRN 09/15/20 04/08/21 Unknown History aerosol inhaler dulaglutide 0.75 mg/0.5 mL 0.75 mg SUBCUT QWEEK 09/15/20 04/08/21 4 Days Ago History subcutaneous pen injector ~09/11/20 (Trulicity) ergocalciferol (vitamin D2) 1,250 1,250 mcg PO QWEEK 09/15/20 04/08/21 1 Day Ago History mcg (50,000 unit) capsule ~09/14/20 fluticasone propionate 110 1 puff PO BID 09/15/20 04/08/21 Unknown History mcg/actuation HFA aerosol inhaler (Flovent HFA) insulin glargine 100 unit/mL (3 34 unit SUBCUT QPM 09/15/20 04/08/21 Unknown History mL) subcutaneous pen (Lantus Solostar U-100 Insulin) lisinopril 2.5 mg tablet 1 tab PO DAILY 09/15/20 04/08/21 Unknown History omeprazole 20 mg capsule,delayed 1 cap PO DAILY PRN 09/15/20 04/08/21 Unknown History release trazodone 50 mg tablet 1 tab PO BEDTIME PRN 04/08/21 04/08/21 Unknown History Physical Exam Vital Signs: Vital Signs: Last Vital Signs Temp 97.1 F 04/09/21 14:59 Pulse 73 04/09/21 14:59 Resp 18 04/09/21 14:59 BP 128/80 04/09/21 14:59 Pulse Ox 98 04/09/21 14:59 BMI result Body Mass Index 43.3 Const: General: cooperative HENMT: Head: Yes normal to inspection Mouth: Normal oral and palatal mucosa present Resp: Effort & Inspection: normal respiratory effort Cardio: Rate: regular rate Rhythm: regular rhythm GI: Palpation (GI): Soft to palpation and nontender Skin: General skin exam: no rashes or lesions noted Neuro: Other: neuropathy feet bilaterally Extrem: Other: interdigital fourth to fifth toes reddened one cm area Results Labs CBC & Chem 7: 04/09/21 07:17 04/09/21 07:17 Labs: Short CBC 04/09/21 Range/Units 07:17 WBC 14.2 H (4.8-10.8) X10*3/uL Hgb 12.2 (12.0-16.0) g/dl Hct 37.4 (37.0-47.0) % Plt Count 300 (160-400) X10*3/uL BMP 04/09/21 04/09/21 07:17 07:17 Sodium 137 Potassium 4.0 Chloride 104 Carbon Dioxide 29 BUN 7 L Creatinine 0.65 0.66 Calcium 8.5 D Urine 04/08/21 Range/Units 18:19 Urine Color YELLOW Urine Appearance CLEAR Urine pH 6.0 (5.0-8.0) Ur Specific [place] >= 1.030 H (1.005-1.025) Urine Protein TRACE (NEG-TRACE) MG/DL Urine Glucose (UA) 100 H (NEG) MG/DL Assessment and Plan (1) Diabetic infection of left foot: Status: Acute She has possible osteomyelitis She is on Vancomycin and Zosyn Cultures are pending Plan Continue antibiotics Await MRI and determine duration of antibiotics Surgery or Vascular to see ?abscess area dorsal surface.
[2021-04-09] MEDS: Enoxaparin Sodium 40 MG/0.4 ML SYRINGE SUBCUT (16:37)
[2021-04-09 20:14] LABS: Glucose, Whole Blood 208 mg/dL (60-115)
[2021-04-09] MEDS: Insulin Glargine,Hum.rec.anlog 100 UNIT/ML 10 ML VIAL 34 UNIT SUBCUT (20:56)
[2021-04-10] VITALS (7 sets, daily range): BP systolic 102–130; BP diastolic 53–73; PULSE 65–71; RESP 14–18; TEMP 36–36.7; O2SAT 98–99
[2021-04-10] MEDS: Piperacillin Sodium/Tazobactam 3.375 GM in 0.9 % Sodium Chloride 50 ML IV ×4 (03:50→21:11)
[2021-04-10 05:44] LABS: Estimated Glomerular Filt Rate > 60
[2021-04-10 07:40] LABS: Vancomycin Trough 5.5 mcg/mL (10.0-20.0)
[2021-04-10 07:45] LABS: Glucose, Whole Blood 155 mg/dL (60-115)
[2021-04-10] MEDS: Insulin Lispro 100 UNIT/ML 3 ML VIAL SUBCUT ×4 (08:10→21:10)
[2021-04-10] MEDS: lisinopriL 2.5 MG TABLET PO (08:10)
[2021-04-10] MEDS: Clotrimazole 1 % Cream 15 GM TUBE 1 APPL TOPICAL ×2 (08:11→21:11)
[2021-04-10] MEDS: 0.9 % Sodium Chloride Flush 3 ML SYRINGE IVFLUSH ×3 (08:13→23:52)
--- NOTE | 2021-04-10 08:47 | HE.PHANOTE ---
RE Vancomycin Trough was subtherapuetic @5.5. Dose increased to 1000mg q8h. Trough scheduled for 04/11 @0700. Suspected AUC 438; trough 9.0 using the obese model
[2021-04-10] MEDS: Morphine Sulfate 2 MG/ML CARTRIDGE IVPUSH ×3 (10:00→21:10)
[2021-04-10] MEDS: vancomycin HCL 1,000 MG in 0.9 % Sodium Chloride 250 ML 270 MG IV ×3 (10:00→23:52)
--- NOTE | 2021-04-10 10:36 | P.PNIM_ITS ---
Subjective Subjective Date of Service: 04/10/21 <MIREYA Nichols - Last Filed: 04/10/21 11:03> 04/11/21 <Tamia Talavera MD - Last Filed: 04/11/21 16:01> Interval History: seen and examined this morning pt reporting pain in left foot especially when ambulating denies fevers, chills <MIREYA Nichols - Last Filed: 04/10/21 11:03> Review of Systems Review of Systems: Yes all other systems are reviewed and are negative <MIREYA Nichols - Last Filed: 04/10/21 11:03> Constitutional Constitutional: Denies chills and Denies fever(s) <MIREYA Nichols - Last Filed: 04/10/21 11:03> Cardiovascular Cardiovascular: Denies chest pain and Denies dyspnea <MIREYA Nichols - Last Filed: 04/10/21 11:03> Respiratory Respiratory: Denies cough and Denies dyspnea <MIREYA Nichols - Last Filed: 04/10/21 11:03> Gastrointestinal Gastrointestinal: Denies abdominal pain <MIREYA Nichols - Last Filed: 04/10/21 11:03> Physical Exam Vital Signs: Vital Signs: Last Vital Signs Temp 97.3 F 04/10/21 07:44 Pulse 66 04/10/21 07:44 Resp 17 04/10/21 07:44 BP 105/59 L 04/10/21 07:44 Pulse Ox 98 04/10/21 07:44 BMI result Body Mass Index 43.3 <MIREYA Nichols - Last Filed: 04/10/21 11:03> Const: General: cooperative, comfortable, no acute distress, alert, awake and Physically active <MIREYA Nichols - Last Filed: 04/10/21 11:03> Nutritional Appearance: obese <MIREYA Nichols - Last Filed: 04/10/21 11:03> Eyes: Pupils: Equal, round and reactive pupils present <MIREYA Nichols - Last Filed: 04/10/21 11:03> Resp: Effort & Inspection: normal respiratory effort and able to speak in complete sentences <MIREYA Nichols - Last Filed: 04/10/21 11:03> Cardio: Heart sounds: S1 normal heart sound present and S2 normal heart sound present <MIREYA Nichols - Last Filed: 04/10/21 11:03> GI: Palpation (GI): Soft to palpation and nontender <MIREYA Nichols - Last Filed: 04/10/21 11:03> Neuro: Cranial nerves: Yes Equal, round and reactive pupils present <MIREYA Nichols - Last Filed: 04/10/21 11:03> Extrem: Other: <MIREYA Nichols - Last Filed: 04/10/21 11:03> Objective Data Active Medications Acetaminophen (Acetaminophen 325 Mg Tablet) 650 mg PO Q6H PRN PRN Reason: Pain, Mild (Pain Scale 1-3) Last Admin: 04/09/21 10:06 Dose: 650 mg Documented by: MARISOL Albuterol Sulfate (Albuterol Sulfate 90 Mcg 8 Gm Inhaler) 2 puff INHALE Q4H PRN PRN Reason: respiratory symptoms Clotrimazole (Clotrimazole 1 % Cream 15 Gm Tube) 1 appl TOPICAL BID [facility]; Protocol Last Admin: 04/10/21 08:11 Dose: 1 appl Documented by: ROCHELLE Dextrose (Dextrose 50 % 25 Gm/50 Ml Syringe) 25 gm IVPUSH Q15M PRN; Protocol PRN Reason: per Hypoglycemia Standing Ord. Enoxaparin Sodium (Enoxaparin Sodium 40 Mg/0.4 Ml Syringe) 40 mg SUBCUT Q24H [facility] Last Admin: 04/09/21 16:37 Dose: 40 mg Documented by: ROCHELLE Ergocalciferol (Ergocalciferol (Vitamin D2) 1,250 Mcg Capsule) 1,250 mcg PO Azul@0900 [facility] Fluticasone Propionate (Fluticasone Propionate 100 Mcg Blst.W.Dev) 1 puff INHALE BID [facility] Last Admin: 04/10/21 07:56 Dose: Not Given Documented by: ADEN Non-Admin Reason: Patient Refused Glucose (Glucose Gel 15 Gm Gel..Gram.) 15 gm PO Q15M PRN; Protocol PRN Reason: per Hypoglycemia Standing Ord. Piperacillin Sod/Tazobactam (Sod 3.375 gm/ Sodium Chloride) 50 mls @ 100 mls/hr IV Q6H [facility] Last Infusion: 04/10/21 09:56 Dose: 0 mls/hr Documented by: ROCHELLE Vancomycin HCl 1,000 mg/ (Sodium Chloride) 270 mls @ 270 mls/hr IV Q8H [facility] Last Admin: 04/10/21 10:00 Dose: 270 mls/hr Documented by: ROCHELLE Insulin Glargine (Insulin Glargine,Hum.Rec.Anlog 100 Unit/Ml 10 Ml Vial) 34 unit SUBCUT BEDTIME [facility] Last Admin: 04/09/21 20:56 Dose: 34 unit Documented by: MER Insulin Human Lispro (Insulin Lispro 100 Unit/Ml 3 Ml Vial) 0 unit SUBCUT QIDACHS [facility]; Protocol Last Admin: 04/10/21 08:10 Dose: 2 unit Documented by: ROCHELLE Lisinopril (Lisinopril 2.5 Mg Tablet) 2.5 mg PO DAILY [facility]; Protocol Last Admin: 04/10/21 08:10 Dose: 2.5 mg Documented by: ROCHELLE Morphine Sulfate (Morphine Sulfate 2 Mg/Ml Cartridge) 2 mg IVPUSH Q4H PRN; Protocol PRN Reason: pain Last Admin: 04/10/21 10:00 Dose: 2 mg Documented by: ROCHELLE Omeprazole (Omeprazole 20 Mg Capsule.Dr) 20 mg PO DAILY PRN PRN Reason: Acid Reflux Ondansetron HCl (Ondansetron Hcl 4 Mg/2 Ml Vial) 4 mg IVPUSH Q8H PRN PRN Reason: Nausea and Vomiting Pharmacy Consult (Consult Rx Perform Med Rec) 1 each MISCELLANE ONCE PRN PRN Reason: Consult order Pharmacy Consult (Consult Rx Vancomycin Dosing) 1 each MISCELLANE DAILY PRN PRN Reason: Consult order Sodium Chloride (0.9 % Sodium Chloride Flush 3 Ml Syringe) 3 ml IVFLUSH QSHIFT [facility] Last Admin: 04/10/21 08:13 Dose: 3 ml Documented by: ROCHELLE Trazodone HCl (Trazodone Hcl 50 Mg Tablet) 50 mg PO BEDTIME PRN PRN Reason: insomnia Last Admin: 04/09/21 20:56 Dose: 50 mg Documented by: MER <MIREYA Nichols - Last Filed: 04/10/21 11:03> Labs CBC & Chem 7: : 04/11/21 07:11 04/11/21 07:11 <MIREYA Nichols - Last Filed: 04/10/21 11:03> Labs: Laboratory Results - last 24 hr 04/09/21 04/09/21 04/09/21 11:23 15:03 19:09 Estim Creat Clear Calc Estimated GFR POC Glucose 153 H 198 H 208 H Vancomycin Trough 04/10/21 04/10/21 04/10/21 04:40 04:40 07:37 Estim Creat Clear Calc 153.0 Estimated GFR > 60 POC Glucose 155 H Vancomycin Trough 5.5 L <MIREYA Nichols - Last Filed: 04/10/21 11:03> Assessment and Plan (1) Diabetic infection of left foot: Status: Acute <MIREYA Nichols - Last Filed: 04/10/21 11:03> (2) Foot abscess, left: Status: Acute <MIREYA Nichols - Last Filed: 04/10/21 11:03> Plan This is a 35-year-old female with history of diabetes admitted with cellulitis to left foot between 4th and 5th digit Left foot cellulitis with abscess MRI of foot with no evidence of osteo, showing complex fluid collection at level of 4th-th toes ID following Pain management Continue IV Vanco and zosyn General surgery consult Tinea pedis Lotrimin cream to both feet Diabetes mellitus On trulicity and lantus at baseline trulicity non-formulary - on hold Continue Lantus Sliding scale, ADA diet continue low dose lisinopril Morbid obesity.? BMI 43.4 Discussed importance of weight management as this may contribute to worsening of other comorbidities DVT prophylaxis with Lovenox Full code Attending Dr. Talavera <MIREYA Nichols - Last Filed: 04/10/21 11:03> Quality Stroke Does the patient have a stroke diagnosis?: No <MIREYA Nichlos - Last Filed: 04/10/21 11:03> VTE Prior VTE?: No <MIREYA Nichols - Last Filed: 04/10/21 11:03> VTE Risk Level:: Medical - moderate - high <MIREYA Nichols - Last Filed: 04/10/21 11:03> VTE Device Contraindication: Treatment Not Indicated <MIREYA Nichols - Last Filed: 04/10/21 11:03> VTE Drug Contraindication: N/A - Med Ordered <MIREYA Nichols - Last Filed: 04/10/21 11:03>
[2021-04-10 11:24] LABS: Glucose, Whole Blood 162 mg/dL (60-115)
[2021-04-10] MEDS: Lidocaine HCl 1 % 20 ML VIAL SUBCUT (14:24)
--- NOTE | 2021-04-10 14:35 | PM.CNGS ---
History of Present Illness Consult details Consult date: 04/10/21 Narrative: [age] year old female referred to me for a left foot abscess. She describes an area of redness with swelling on the dorsum of the left foot just above the 4th and 5th interspace. This started about 5 days ago and seemed to have been increasingly getting worse. She denies any trauma or insect bite to the area. She describes significant tenderness as well. Review of Systems Constitutional: Constitutional: Denies chills and Denies fever(s) Cardiovascular: Cardiovascular: Denies chest pain, Denies dyspnea and Denies dyspnea on exertion Respiratory: Respiratory: Denies cough, Denies dyspnea and Denies dyspnea on exertion Gastrointestinal: Gastrointestinal: Denies hematochezia and Denies change in bowel habits Genitourinary: Genitourinary: Denies hematuria Musculoskeletal: Musculoskeletal: Denies back pain and Denies limited range of motion Neurologic: Denies focal weakness and Denies convulsions Psychiatric: Psychiatric: Denies depression and Denies mood swings PMFSH Past Medical History Medical History Asthma Diabetes Family History Family History Other Asthma Family history: reviewed and not pertinent Social History Social History Household Members: Family Household Members Other:: and sister Housing: Apartment Do you presently have visiting nurse or other home services: No Alcohol intake: current Alcohol intake frequency: holidays/special occasions only Patient Tobacco Use Status: Current everyday Tobacco user Tobacco use type: Cigarette Cigarettes Per Day: 2 service: No Current occupational status: employed 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 Allergies Allergy/AdvReac Type Severity Reaction Status Date / Time No Known Allergies Allergy Verified 02/05/21 13:36 Active Medications: Current Medications Acetaminophen (Acetaminophen 325 Mg Tablet) 650 mg PO Q6H PRN PRN Reason: Pain, Mild (Pain Scale 1-3) Last Admin: 04/09/21 10:06 Dose: 650 mg Documented by: Albuterol Sulfate (Albuterol Sulfate 90 Mcg 8 Gm Inhaler) 2 puff INHALE Q4H PRN PRN Reason: respiratory symptoms Clotrimazole (Clotrimazole 1 % Cream 15 Gm Tube) 1 appl TOPICAL BID DEL; Protocol Last Admin: 04/10/21 08:11 Dose: 1 appl Documented by: Dextrose (Dextrose 50 % 25 Gm/50 Ml Syringe) 25 gm IVPUSH Q15M PRN; Protocol PRN Reason: per Hypoglycemia Standing Ord. Enoxaparin Sodium (Enoxaparin Sodium 40 Mg/0.4 Ml Syringe) 40 mg SUBCUT Q24H [facility] Last Admin: 04/09/21 16:37 Dose: 40 mg Documented by: Ergocalciferol (Ergocalciferol (Vitamin D2) 1,250 Mcg Capsule) 1,250 mcg PO Azul@0900 [facility] Fluticasone Propionate (Fluticasone Propionate 100 Mcg Blst.W.Dev) 1 puff INHALE BID [facility] Last Admin: 04/10/21 07:56 Dose: Not Given Documented by: Glucose (Glucose Gel 15 Gm Gel..Gram.) 15 gm PO Q15M PRN; Protocol PRN Reason: per Hypoglycemia Standing Ord. Piperacillin Sod/Tazobactam (Sod 3.375 gm/ Sodium Chloride) 50 mls @ 100 mls/hr IV Q6H [facility] Last Infusion: 04/10/21 09:56 Dose: Infused Documented by: Vancomycin HCl 1,000 mg/ (Sodium Chloride) 270 mls @ 270 mls/hr IV Q8H [facility] Last Infusion: 04/10/21 11:06 Dose: Infused Documented by: Insulin Glargine (Insulin Glargine,Hum.Rec.Anlog 100 Unit/Ml 10 Ml Vial) 34 unit SUBCUT BEDTIME [facility] Last Admin: 04/09/21 20:56 Dose: 34 unit Documented by: Insulin Human Lispro (Insulin Lispro 100 Unit/Ml 3 Ml Vial) 0 unit SUBCUT QIDACHS [facility]; Protocol Last Admin: 04/10/21 12:01 Dose: 2 unit Documented by: Lisinopril (Lisinopril 2.5 Mg Tablet) 2.5 mg PO DAILY [facility]; Protocol Last Admin: 04/10/21 08:10 Dose: 2.5 mg Documented by: Morphine Sulfate (Morphine Sulfate 2 Mg/Ml Cartridge) 2 mg IVPUSH Q4H PRN; Protocol PRN Reason: pain Last Admin: 04/10/21 10:00 Dose: 2 mg Documented by: Omeprazole (Omeprazole 20 Mg Capsule.Dr) 20 mg PO DAILY PRN PRN Reason: Acid Reflux Ondansetron HCl (Ondansetron Hcl 4 Mg/2 Ml Vial) 4 mg IVPUSH Q8H PRN PRN Reason: Nausea and Vomiting Pharmacy Consult (Consult Rx Perform Med Rec) 1 each MISCELLANE ONCE PRN PRN Reason: Consult order Pharmacy Consult (Consult Rx Vancomycin Dosing) 1 each MISCELLANE DAILY PRN PRN Reason: Consult order Sodium Chloride (0.9 % Sodium Chloride Flush 3 Ml Syringe) 3 ml IVFLUSH QSHIFT [facility] Last Admin: 04/10/21 08:13 Dose: 3 ml Documented by: Trazodone HCl (Trazodone Hcl 50 Mg Tablet) 50 mg PO BEDTIME PRN PRN Reason: insomnia Last Admin: 04/09/21 20:56 Dose: 50 mg Documented by: Home Medications Medication Instructions Recorded Confirmed Last Taken Type albuterol sulfate 90 mcg/actuation 2 puff INHALATION Q4-6H PRN 09/15/20 04/08/21 Unknown History aerosol inhaler dulaglutide 0.75 mg/0.5 mL 0.75 mg SUBCUT QWEEK 09/15/20 04/08/21 4 Days Ago History subcutaneous pen injector ~09/11/20 (Trulicity) ergocalciferol (vitamin D2) 1,250 1,250 mcg PO QWEEK 09/15/20 04/08/21 1 Day Ago History mcg (50,000 unit) capsule ~09/14/20 fluticasone propionate 110 1 puff PO BID 09/15/20 04/08/21 Unknown History mcg/actuation HFA aerosol inhaler (Flovent HFA) insulin glargine 100 unit/mL (3 34 unit SUBCUT QPM 09/15/20 04/08/21 Unknown History mL) subcutaneous pen (Lantus Solostar U-100 Insulin) lisinopril 2.5 mg tablet 1 tab PO DAILY 09/15/20 04/08/21 Unknown History omeprazole 20 mg capsule,delayed 1 cap PO DAILY PRN 09/15/20 04/08/21 Unknown History release trazodone 50 mg tablet 1 tab PO BEDTIME PRN 04/08/21 04/08/21 Unknown History Physical Exam Vital Signs: Vital Signs: Last Vital Signs Temp 97.0 F 04/10/21 12:00 Pulse 65 04/10/21 12:00 Resp 18 04/10/21 12:00 BP 116/61 04/10/21 12:00 Pulse Ox 99 04/10/21 12:00 BMI result Body Mass Index 43.3 Const: General: comfortable and no acute distress Orientation/consciousness: patient oriented x3 Neck: Neck: Yes no lymphadenopathy Resp: Auscultation: clear to auscultation bilaterally Cardio: Rhythm: regular rhythm GI: Palpation (GI): Soft to palpation, nontender and no guarding Neuro: General: patient oriented x3 Extrem: Other: Left foot with note of a fluctuant area above the 4th and 5th interspace measuring about 1 cm in widest diameter, surrounded by some mild cellulitic changes Results Labs Result diagrams: 04/09/21 07:17 04/10/21 04:40 Labs: Abnormal lab results 04/09/21 04/09/21 04/10/21 Range/Units 15:03 19:09 04:40 POC Glucose 198 H 208 H (60-115) mg/dL Vancomycin Trough 5.5 L (10.0-20.0) mcg/mL 04/10/21 04/10/21 Range/Units 07:37 11:15 POC Glucose 155 H 162 H (60-115) mg/dL Vancomycin Trough (10.0-20.0) mcg/mL BMP 04/10/21 04:40 Creatinine 0.66 Urine 04/08/21 04/08/21 Range/Units 18:19 18:19 Urine Color YELLOW Urine Appearance CLEAR Urine pH 6.0 (5.0-8.0) Ur Specific [place] >= 1.030 H (1.005-1.025) Urine Protein TRACE (NEG-TRACE) MG/DL Urine Glucose (UA) 100 H (NEG) MG/DL Urine Test NEGATIVE (NEGATIVE) All other labs normal. Assessment and Plan (1) Foot abscess, left: Status: Acute In view of this small fluctuant area with some surrounding cellulitis, I told her it will be best to do an I and D. This will be done under local anesthesia at bedside. I explained to the technique of this procedure. I reviewed the risks, benefits, and alternatives and she had given verbal consent The area was prepped and draped. Lidocaine 1% was used for local anesthesia. I made a generous incision on the skin overlying this fluctuant area using blade 11. immediately, repaired fluid was drained. I excised the overlying roof thin skin. I bluntly debrided the entire cavity. I then applied dry dressings and wrapped the foot in Kerlix Roll. Cultures of this drainage was taken as well. The patient tolerated procedure well. There were no complications noted. We can continue with wound care with dry dressings daily Her MRI does not reveal osteomyelitis. Procedures Date of Service Date of Service: 04/10/21
[2021-04-10 15:53] LABS: Glucose, Whole Blood 184 mg/dL (60-115)
[2021-04-10] MEDS: Enoxaparin Sodium 40 MG/0.4 ML SYRINGE SUBCUT (18:19)
[2021-04-10 19:52] LABS: Glucose, Whole Blood 175 mg/dL (60-115)
[2021-04-10] MEDS: traZODone HCL 50 MG TABLET PO (21:10)
[2021-04-10] MEDS: Insulin Glargine,Hum.rec.anlog 100 UNIT/ML 10 ML VIAL 34 UNIT SUBCUT (21:10)
[2021-04-11 03:35] VITALS: BP 107/58; PULSE 70; RESP 18; TEMP 36.9; O2SAT 96
[2021-04-11] MEDS: Piperacillin Sodium/Tazobactam 3.375 GM in 0.9 % Sodium Chloride 50 ML IV ×2 (03:56→11:39)
[2021-04-11] MEDS: Morphine Sulfate 2 MG/ML CARTRIDGE IVPUSH ×2 (05:30→09:34)
[2021-04-11 07:26] LABS: Glucose, Whole Blood 109 mg/dL (60-115)
[2021-04-11 08:00] VITALS: RESP 17
[2021-04-11 08:22] LABS: Hematocrit 37.5 % (37.0-47.0); Hemoglobin 12.6 g/dl (12.0-16.0); Mean Corpuscular HGB Conc 33.6 g/dl (31.0-35.0); Mean Corpuscular Hemoglobin 28.6 pg (27.0-33.0); Mean Corpuscular Volume 85.2 fL (80.0-98.0); Mean Platelet Volume 10.9 fL (9.4-12.3); Platelet Count 318 X10*3/uL (160-400); Red Cell Distribution Width 12.9 % (11.0-16.0); White Blood Count 12.9 X10*3/uL (4.8-10.8)
[2021-04-11 08:38] LABS: Creatinine Clr Calc Pharmacy 144.2; Estimated Glomerular Filt Rate > 60
--- NOTE | 2021-04-11 09:10 | HE.PHANOTE ---
Vancomycin addendum Trough of 11.0 drawn on 04/11/21. Will continue with same dose, next trough to be drawn 04/12/21 @0700.
[2021-04-11] MEDS: lisinopriL 2.5 MG TABLET PO (09:31)
[2021-04-11] MEDS: vancomycin HCL 1,000 MG in 0.9 % Sodium Chloride 250 ML 270 MG IV (09:31)
[2021-04-11] MEDS: 0.9 % Sodium Chloride Flush 3 ML SYRINGE IVFLUSH (09:33)
[2021-04-11] MEDS: Clotrimazole 1 % Cream 15 GM TUBE 1 APPL TOPICAL (09:40)
--- NOTE | 2021-04-11 11:14 | PC.NURSE ---
Pt complaint of nausea this morning. Pt vomited small amout of yellow bile. RN in room. Given. Pt refused ondansetron. Pt states feeling better after vomiting, no further nausea. Will continue to monitor.
[2021-04-11 11:22] VITALS: BP 122/71; PULSE 75; RESP 18; TEMP 36.3; O2SAT 99
[2021-04-11 11:48] LABS: Glucose, Whole Blood 131 mg/dL (60-115)
[2021-04-11] MEDS: Acetaminophen 325 MG TABLET 650 MG PO (12:21)
--- NOTE | 2021-04-11 13:32 | PM.DS ---
DS: Providers Provider Date of Service: 04/11/21 Date of admission: 04/08/21 16:42 Date of discharge: 04/11/21 Primary care physician: Ashley Kebede MD Consults: 04/08/21 16:45 Consult to Infectious Diseases Routine Consulting Provider: Ivonne Watkins Reason for consultation: cellulitis Has provider been notified: No 04/10/21 10:09 Consult to General Surgery Routine Consulting Provider: Jose Urias Reason for consultation: left foot abscess Has provider been notified: No Attending physician on discharge: Jason [facility] Discharging clinician: Ana Luisa Street DS: Diagnosis Discharge Diagnosis (1) Foot abscess, left: Status: Acute (2) Cellulitis: Status: Acute (3) Diabetes: Status: Acute DS: Summary Hospital Course Hospital Course: From H&P on day of admission 35 year old women presenting with pain and redness to her left foot between the 4th and 5th toes. 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 She looked and saw a small area of redness to the dorsum of the foot. She denied fever, chills, nausea, vomiting. She hadn't noted any drainage from the wound. WBC was elevated at 15.5, no fever noted. In the ED she was given Unasyn. She will be admitted for management of cellulitis with tinea pedis Cellulitis and abscess of left foot related to diabetes. Patient was started on antibiotics with IV vancomycin and zosyn. There was no evidence of sepsis. She underwent MRI of the foot which did not show any evidence of osteomyelitis. It did show concern over abscess of the dorsal surface of the foot. She was seen in consultation by General surgery who performed a bedside I&D of the abscess. Her erythema and swelling have improved significantly. She was seen in consultation by Infectious Diseases who recommended 14 days of doxycycline on discharge. Gram stain of wound growing Gram-positive cocci, wound cultures not final at this time. This was discussed with the patient however she is eager to return home today. It was discussed that based on the final culture results she may require alternative antibiotics. Surgery recommended dry sterile dressing changes daily, she will be discharged home with supplies for the same. 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 If she wishes to return to work earlier or needs more time she is encouraged to follow-up with her PCP. She has been given referral to wound care clinic. Time Spent with Patient Time attestation: Total time spent providing and/or coordinating discharge services: Discharge coordination time: Greater than 30 minutes Quality: Stroke Does the patient have a stroke diagnosis?: No Physical Exam Vital Signs: Vital Signs: Last Vital Signs Temp 97.4 F 04/11/21 11:22 Pulse 75 04/11/21 11:22 Resp 18 04/11/21 11:22 BP 122/71 04/11/21 11:22 Pulse Ox 99 04/11/21 11:22 BMI result Body Mass Index 43.3 Const: General: cooperative, comfortable, no acute distress, alert and awake Eyes: Pupils: Equal, round and reactive pupils present Resp: Effort & Inspection: normal respiratory effort and able to speak in complete sentences Cardio: Heart sounds: S1 normal heart sound present and S2 normal heart sound present GI: Palpation (GI): Soft to palpation and nontender Neuro: Cranial nerves: Yes Equal, round and reactive pupils present Extrem: Other: left foot fluctuance resolved, erythema improving, pain improving DS: Data Data Completed and Pending Labs on day of discharge: Laboratory Results - last 24 hr 04/10/21 04/10/21 04/11/21 15:49 19:16 07:11 WBC RBC Hgb Hct MCV MCH MCHC RDW Plt Count MPV Absolute Nucleated RBC Nucleated RBC % (auto) Creatinine Estim Creat Clear Calc Estimated GFR POC Glucose 184 H 175 H Vancomycin Trough 11.0 04/11/21 04/11/21 04/11/21 07:11 07:11 07:22 WBC 12.9 H RBC 4.40 Hgb 12.6 Hct 37.5 MCV 85.2 MCH 28.6 MCHC 33.6 RDW 12.9 Plt Count 318 MPV 10.9 Absolute Nucleated RBC 0.000 Nucleated RBC % (auto) 0.0 Creatinine 0.70 Estim Creat Clear Calc 144.2 Estimated GFR > 60 POC Glucose 109 Vancomycin Trough 04/11/21 11:21 WBC RBC Hgb Hct MCV MCH MCHC RDW Plt Count MPV Absolute Nucleated RBC Nucleated RBC % (auto) Creatinine Estim Creat Clear Calc Estimated GFR POC Glucose 131 H Vancomycin Trough Preliminary micro results at discharge 04/10/21 14:44 Routine Culture - Preliminary Foot - Abscess Culture in progress. Discharge Plan Discharge Patient Disposition: Home, Self-Care Discharge Diagnosis: left foot cellulitis/abscess diabetes Referrals: Shelby Downing MD [Physician] - 1 Week Ashley Kebede MD [Primary Care Provider] - 1 Week Discharge Medications: New doxycycline monohydrate 100 mg tablet 100 mg PO BID 14 Days Qty: 28 0RF Continued omeprazole 20 mg capsule,delayed release(DR/EC) 1 cap PO DAILY PRN (Reason: Acid Reflux) 0RF ergocalciferol (vitamin D2) 1,250 mcg (50,000 unit) capsule 1,250 mcg PO QWEEK 0RF albuterol sulfate 90 mcg/actuation HFA aerosol inhaler 2 puff inhalation Q4-6H PRN (Reason: respiratory symptoms) 0RF lisinopril 2.5 mg tablet 1 tab PO DAILY 0RF Flovent HFA 110 mcg/actuation HFA aerosol inhaler 1 puff PO BID 0RF Lantus Solostar U-100 Insulin 100 unit/mL (3 mL) insulin pen 34 unit subcut QPM 0RF Trulicity 0.75 mg/0.5 mL pen injector 0.75 mg subcut QWEEK 0RF Label Comments: on wednesdays trazodone 50 mg tablet 1 tab PO BEDTIME PRN (Reason: insomnia) 0RF Discharge Orders: Discharge Order (Routine); Ordered 04/11/21 Ordered By: Ana Luisa Street Diet: advance to usual diet Activity on Discharge: As tolerated Stand Alone Forms: Patient Portal Discharge page, Work/School Release Care Plan Goals: Complete healing of wound Health Concerns: left foot abscess/cellulitis diabetes Plan of Treatment: complete entire course of antibiotics as prescribed keep foot elevated recommend dry dressings changed daily like what was done while in the hospital call to schedule follow up appointment with PCP You have been referred to the wound clinic for wound care Assessment: left foot cellulitis with abscess related to diabetes Discharge Date/Time: 04/11/21 14:47
--- NOTE | 2021-04-11 14:39 | MHC.CM.PN ---
Addendum entered by Yamile Love RN 04/11/21 14:42: PT WILL SELF ARRANGE TRANSPORT Original Note: PT MEDICALLY CLEARED FOR D/C HOME SELF-CARE, RN AWARE PT WILL NEED TO BE TAUGHT DRESSING CHANGE AND WILL NEED TO GO HOMEW/DRESSING SUPPLIES
== END 2021-04-11 14:47 | disposition home or self-care (01) | DRG 383 ==
LOC: HO.ED 16:22 → HO.EDOVER 16:47 → HO.S3 17:47 → HO.EDOVER 18:47 → HO.S3 04-09 09:37
PROVIDERS: Admitting Provider Nurse Practitioner Acute Care; Emergency Provider Emergency Medicine; PCP Family Medicine; Visit Provider Physician Assistant Medical
DX: L02.612 Cutaneous abscess of left foot (principal); E11.8 Type 2 diabetes mellitus with unspecified complications; B35.3 Tinea pedis; E66.01 Morbid (severe) obesity due to excess calories; F17.210 Nicotine dependence, cigarettes, uncomplicated; L03.032 Cellulitis of left toe; Z91.19 Patient's noncompliance with other medical treatment and regimen; Z20.822 Contact with and (suspected) exposure to COVID-19; Z68.42 Body mass index [BMI] 45.0-49.9, adult; Z71.6 Tobacco abuse counseling; Z79.4 Long term (current) use of insulin; Z79.899 Other long term (current) drug therapy
CPT/HCPCS: 36415; 73720; 80048; 80202; 81001; 81025; 82565; 82947; 85025; 85027; 85652; 86140; 87071; 87077; 87186; 87205; 87635; 96365; 99218; 99285; A9585; J0295; J1650; J2270; J2543; J3370

== ENCOUNTER 2021-04-21 09:10 | Outpatient (RCR) | payer MEDICAID, SELFPAY | END 2021-05-12 09:23 | disposition home or self-care (01) | LOC: HO.WCC 09:10 | PROVIDERS: PCP Family Medicine; Visit Provider Physician Assistant | DX: E11.621 Type 2 diabetes mellitus with foot ulcer (principal); L97.529 Non-pressure chronic ulcer of other part of left foot with unspecified severity; F17.210 Nicotine dependence, cigarettes, uncomplicated; Z71.6 Tobacco abuse counseling; Z79.4 Long term (current) use of insulin; Z79.2 Long term (current) use of antibiotics | CPT/HCPCS: 99213 ==

== ENCOUNTER 2022-08-05 14:10 | Emergency (ER) | payer MEDICAID, SELFPAY ==
--- NOTE | ~2022-08-05 | XR_ITS ---
EXAMINATION: XR FOOT, RIGHT CLINICAL INFORMATION: Wound with question of osteomyelitis COMPARISON: None available. TECHNIQUE: AP, lateral, and oblique views of the right foot. FINDINGS: The bones and soft tissues are normal. No fracture. Alignment is anatomic. Joint spaces are maintained. No bony destruction or periosteal reaction seen to suggest the presence of osteomyelitis. XR/XR foot RT min 3V IMPRESSION: Normal right foot. No evidence of osteomyelitis. If clinically concerned, MRI would have increased sensitivity compared with this plain film study.
[2022-08-05 14:30] VITALS: BP 112/79; PULSE 101; RESP 18; TEMP 36.9; O2SAT 98; BMI 39.2
--- NOTE | 2022-08-05 14:30 | ED_ITS ---
HPI - Extremity Injury (Lower) General Chief Complaint: Wound/Laceration Stated Complaint: R Foot Pain No Injury Time Seen by Provider: 08/05/22 17:24 Source: patient, family and community outreach manager Mode of arrival: ambulatory Limitations: no limitations History of Present Illness HPI Narrative: 37-year-old female history of DM came in for evaluation of right foot wound. Patient worked 2 jobs and get to stand for many hours during the day started to have discomfort to the right foot started as a small lesion in between the 2nd and 3rd right toe hurts when she wears shoe and stand for long time, yesterday noticed blood scanty amount of whitish discharge, no fever, no chills, no trauma to the foot. Related Data Home Medications Medication Instructions Recorded Confirmed albuterol sulfate 90 mcg/actuation 2 puff inhalation Q4-6H PRN 09/15/20 04/08/21 aerosol inhaler respiratory symptoms dulaglutide 0.75 mg/0.5 mL 0.75 mg subcut QWEEK 09/15/20 04/08/21 subcutaneous pen injector (Trulicity) ergocalciferol (vitamin D2) 1,250 1,250 mcg PO QWEEK 09/15/20 04/08/21 mcg (50,000 unit) capsule fluticasone propionate 110 1 puff PO BID 09/15/20 04/08/21 mcg/actuation HFA aerosol inhaler (Flovent HFA) insulin glargine 100 unit/mL (3 34 unit subcut QPM 09/15/20 04/08/21 mL) subcutaneous pen (Lantus Solostar U-100 Insulin) lisinopril 2.5 mg tablet 1 tab PO DAILY 09/15/20 04/08/21 omeprazole 20 mg capsule,delayed 1 cap PO DAILY PRN Acid Reflux 09/15/20 04/08/21 release trazodone 50 mg tablet 1 tab PO BEDTIME PRN insomnia 04/08/21 04/08/21 Previous Rx's Medication Instructions Recorded doxycycline monohydrate 100 mg 100 mg PO BID 14 days #28 tabs 04/11/21 tablet doxycycline hyclate 100 mg tablet 100 mg PO BID #20 tabs 08/05/22 mupirocin 2 % topical ointment 1 appl topical TID #22 grams 08/05/22 oxycodone 5 mg tablet 5 mg PO Q8H PRN pain #7 tabs 08/05/22 Allergies Allergy/AdvReac Type Severity Reaction Status Date / Time No Known Allergies Allergy Verified 02/05/21 13:36 Review of Systems Review of Systems: all other systems are reviewed and are negative Constitutional: Reports as per HPI and Reports no additional constitutional complaints Eyes: Reports as per HPI and Reports no additional eye complaints Reports system reviewed and no additional complaints, except as documented Cardiovascular: Reports as per HPI and Reports no additional cardiovascular complaints Respiratory: Reports as per HPI and Reports no additional respiratory complaints Gastrointestinal: Reports as per HPI and Reports no additional gastrointestinal complaints Genitourinary: Reports no additional female genitourinary complaints Musculoskeletal: Reports no additional musculoskeletal complaints Skin/Breast: Reports system reviewed and no additional complaints, except as docu Psychiatric: Reports no additional psychiatric complaints Endocrine: Reports no additional endocrine complaints Hematologic/Lymphatic: Reports no additional hematologic/lymphatic complaints Allergic/Immunologic: Reports no additional allergic/immunologic complaints Reports system reviewed and no additional complaints, except as documented and Reports Abnormal speech present [facility] Past Medical History Medical History Asthma Diabetes Family History Family History Other Asthma Social History Social History Household Members: Family Household Members Other:: and sister Housing: Apartment Do you presently have visiting nurse or other home services: No Alcohol intake: current Alcohol intake frequency: holidays/special occasions only Patient Tobacco Use Status: Current everyday Tobacco user Tobacco use type: Cigarette Cigarettes Per Day: 2 Advance Directives: Yes Advance Directives on File: Yes Advance Directives Date on File: 04/14/21 service: No Current occupational status: employed 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 Blood pressure normal. Heart rate normal. Respiration rate normal. Temperature normal. Oxygen saturation normal. Appearance: Alert. Oriented X3. No acute distress. Head: Normal external exam. Normocephalic. Atraumatic. No Garg signs noted. No raccoon eyes noted Eyes: PERRLA. EOMI. Conjunctiva and sclera normal. Eyelids normal. ENT: TM's Normal. Pharynx normal. Uvula midline. Moist mucous membranes. No trismus noted. No drooling noted. No muffled voice noted. Neck: Normal inspection. Neck supple. FROM. No adenopathy. Thyroid Normal. No meningeal signs. No neck mass noted. CVS: Normal heart rate and rhythm. Heart sound normal. No murmurs noted. Pulses normal throughout. Respiratory: No respiratory distress. Painless inspiration. Breath sounds nor mal. No wheezes/rales/rhonchi noted. Chest nontender. No accessory muscle usage noted or decreased air movement noted. Abdomen: Soft and nontender. Bowel sounds normal in all 4 quadrants. No distent ion noted. No organomegaly noted. No visible injury noted. Back: No CVA tenderness. Full range of motion noted. Skin: Skin warm and dry. Normal skin color. Normal skin turgor. No rashes/lesions/lacerations noted. Extremities: 3 x 3 cm area of redness, hotness between the right 2nd and 3rd toe , extremely tender to touch, no fluctuation, no pus or discharge , no active bleeding, neurovascular. Neuro: Oriented X 3. Cranial nerve exam: II-XII are grossly intact No motor deficit. No sensory deficit. Reflexes normal. Course Course Course Narrative: RME: 37yo F w/PMHx asthma, DM, c/o R foot wound x3 days w/bleeding and swelling. denies injury, fever +R foot swelling w/wound bwt 2-3rd toes with small opening wound and ecchymosis/blistering. NV intact Labs, Lactic/blood cx, XR ordered Full HPI, ROS and PE to be performed by primary ED provider. Reevaluation(s) Reevaluation #1: Type 2 diabetes on insulin with a right foot cellulitis, no discrete abscess, will start the patient on doxycycline and return in 3 days for wound check. Chronic LFTs elevation noted. hyperglycemia treated with 10 units of insulin IV with 1 L of normal saline, no DKA. Time: 17:43 Medications Administered Discontinued Medications Generic Name Dose Route Start Last Admin Trade Name Rachel PRN Reason Stop Dose Admin Doxycycline Monohydrate 100 mg 08/05/22 17:35 08/05/22 18:08 Doxycycline Monohydrate 100 Mg Capsule PO 08/05/22 17:36 100 mg ONCE ONE Administration Sodium Chloride 1,000 mls @ 999 mls/hr 08/05/22 17:35 08/05/22 17:48 Ns IV 08/05/22 18:35 999 mls/hr .Q1H1M ONE Administration Insulin Human Regular 10 unit 08/05/22 17:35 08/05/22 18:08 Insulin Regular, Human 100 Unit/Ml 3 Ml Vial IVPUSH 08/05/22 17:36 10 unit ONCE ONE Administration Morphine Sulfate 2 mg 08/05/22 18:18 08/05/22 18:21 Morphine Sulfate 2 Mg/Ml Cartridge IVPUSH 08/05/22 18:19 2 mg ONCE ONE Administration Protocol Medical Decision Making Differential Diagnosis Differential Diagnoses: The differential diagnosis associated with the presentation includes ( osteomyelitis, cellulitis, abscess, severe electrolyte abnormalities, hyperglycemia, DKA, severe anemia.) Admission/Observation Consideration of admission/observation: Escalation of care including admission/observation considered Lab Data MDM Lab Attestation statement: I reviewed the patient's lab results. 08/05/22 16:58 Labs: Lab Results 08/05/22 08/05/22 08/05/22 Range/Units 16:58 16:58 16:58 WBC (4.8-10.8) X10*3/uL RBC (4.20-5.50) X10*6/uL Hgb (12.0-16.0) g/dl Hct (37.0-47.0) % MCV (80.0-98.0) fL MCH (27.0-33.0) pg MCHC (31.0-35.0) g/dl RDW (11.0-16.0) % Plt Count (160-400) X10*3/uL MPV (9.4-12.3) fL Immature Gran % (Auto) (0.0-0.4) % Neut % (Auto) (45-73) % Lymph % (Auto) (20-40) % Blaine % (Auto) (2-11) % Eos % (Auto) (0-4) % Baso % (Auto) (0-2) % Lymph # (Auto) (1.2-4.9) X10*3/uL Blaine # (Auto) (0.1-1.2) X10*3/uL Eos # (Auto) (0.0-0.4) X10*3/uL Baso # (Auto) (0.0-0.2) X10*3/uL Abs Immat Gran (auto) (0.00-0.03) X10*3/uL Absolute Neuts (auto) (2.0-8.3) x10*3/uL Absolute Nucleated RBC (0.0-0.012) X10*3/uL Nucleated RBC % (auto) (0.0-0.2) /100WBC ESR 24 H (0-20) MM/HR PT 10.7 (10.0-13.1) SEC INR 0.9 (0.9-1.1) Sodium 135 (135-145) mmol/L Potassium 4.5 (3.3-5.1) mmol/L Chloride 98 (96-108) mmol/L Carbon Dioxide 28 (22-29) mmol/L Anion Gap 14 (12-20) BUN 10 (9-16) mg/dL Creatinine 0.93 (0.5-1.4) mg/dL Estim Creat Clear Calc 107.6 Estimated GFR > 60 POC Glucose (60-115) mg/dL Random Glucose 394 H* (60-115) mg/dL Lactic Acid (0.5-2.0) mmol/L Calcium 10.1 D (8.4-10.2) mg/dL Total Bilirubin 0.6 (0.0-1.0) mg/dL Direct Bilirubin 0.1 (0.0-0.5) mg/dL AST 50 H (5-31) U/L ALT 78 H (0-31) U/L Alkaline Phosphatase 134 H (39-117) U/L C-Reactive Protein 3.40 H (< or = 0.50) mg/dL B-Natriuretic Peptide (<100) pg/mL Total Protein 8.5 H (6.5-8.0) g/dL Albumin 4.4 (3.5-5.0) g/dL 08/05/22 08/05/22 08/05/22 Range/Units 16:58 16:58 17:46 WBC 12.6 H (4.8-10.8) X10*3/uL RBC 5.48 D (4.20-5.50) X10*6/uL Hgb 15.7 D (12.0-16.0) g/dl Hct 47.1 H D (37.0-47.0) % MCV 85.9 (80.0-98.0) fL MCH 28.6 (27.0-33.0) pg MCHC 33.3 (31.0-35.0) g/dl RDW 13.2 (11.0-16.0) % Plt Count 331 (160-400) X10*3/uL MPV 10.7 (9.4-12.3) fL Immature Gran % (Auto) 0.4 (0.0-0.4) % Neut % (Auto) 58.3 (45-73) % Lymph % (Auto) 31.1 (20-40) % Blaine % (Auto) 7.8 (2-11) % Eos % (Auto) 1.8 (0-4) % Baso % (Auto) 0.6 (0-2) % Lymph # (Auto) 3.9 (1.2-4.9) X10*3/uL Blaine # (Auto) 1.0 (0.1-1.2) X10*3/uL Eos # (Auto) 0.2 (0.0-0.4) X10*3/uL Baso # (Auto) 0.1 (0.0-0.2) X10*3/uL Abs Immat Gran (auto) 0.05 H (0.00-0.03) X10*3/uL Absolute Neuts (auto) 7.3 (2.0-8.3) x10*3/uL Absolute Nucleated RBC 0.000 (0.0-0.012) X10*3/uL Nucleated RBC % (auto) 0.0 (0.0-0.2) /100WBC ESR (0-20) MM/HR PT (10.0-13.1) SEC INR (0.9-1.1) Sodium (135-145) mmol/L Potassium (3.3-5.1) mmol/L Chloride (96-108) mmol/L Carbon Dioxide (22-29) mmol/L Anion Gap (12-20) BUN (9-16) mg/dL Creatinine (0.5-1.4) mg/dL Estim Creat Clear Calc Estimated GFR POC Glucose (60-115) mg/dL Random Glucose (60-115) mg/dL Lactic Acid 1.3 (0.5-2.0) mmol/L Calcium (8.4-10.2) mg/dL Total Bilirubin (0.0-1.0) mg/dL Direct Bilirubin (0.0-0.5) mg/dL AST (5-31) U/L ALT (0-31) U/L Alkaline Phosphatase (39-117) U/L C-Reactive Protein (< or = 0.50) mg/dL B-Natriuretic Peptide < 10 (<100) pg/mL Total Protein (6.5-8.0) g/dL Albumin (3.5-5.0) g/dL 08/05/22 08/05/22 Range/Units 18:03 19:10 WBC (4.8-10.8) X10*3/uL RBC (4.20-5.50) X10*6/uL Hgb (12.0-16.0) g/dl Hct (37.0-47.0) % MCV (80.0-98.0) fL MCH (27.0-33.0) pg MCHC (31.0-35.0) g/dl RDW (11.0-16.0) % Plt Count (160-400) X10*3/uL MPV (9.4-12.3) fL Immature Gran % (Auto) (0.0-0.4) % Neut % (Auto) (45-73) % Lymph % (Auto) (20-40) % Blaine % (Auto) (2-11) % Eos % (Auto) (0-4) % Baso % (Auto) (0-2) % Lymph # (Auto) (1.2-4.9) X10*3/uL Blaine # (Auto) (0.1-1.2) X10*3/uL Eos # (Auto) (0.0-0.4) X10*3/uL Baso # (Auto) (0.0-0.2) X10*3/uL Abs Immat Gran (auto) (0.00-0.03) X10*3/uL Absolute Neuts (auto) (2.0-8.3) x10*3/uL Absolute Nucleated RBC (0.0-0.012) X10*3/uL Nucleated RBC % (auto) (0.0-0.2) /100WBC ESR (0-20) MM/HR PT (10.0-13.1) SEC INR (0.9-1.1) Sodium (135-145) mmol/L Potassium (3.3-5.1) mmol/L Chloride (96-108) mmol/L Carbon Dioxide (22-29) mmol/L Anion Gap (12-20) BUN (9-16) mg/dL Creatinine (0.5-1.4) mg/dL Estim Creat Clear Calc Estimated GFR POC Glucose 413 H* 204 H (60-115) mg/dL Random Glucose (60-115) mg/dL Lactic Acid (0.5-2.0) mmol/L Calcium (8.4-10.2) mg/dL Total Bilirubin (0.0-1.0) mg/dL Direct Bilirubin (0.0-0.5) mg/dL AST (5-31) U/L ALT (0-31) U/L Alkaline Phosphatase (39-117) U/L C-Reactive Protein (< or = 0.50) mg/dL B-Natriuretic Peptide (<100) pg/mL Total Protein (6.5-8.0) g/dL Albumin (3.5-5.0) g/dL Independent Interpretation I performed an independent interpretation of an: Plain X-Ray ( Right foot: No evidence of osteomyelitis.) Radiology Impression Discussion of test interpretation with radiology: I have reviewed the radiologist's reading. Chronic Conditions Patient?s care impacted by: Diabetes Discharge Plan Discharge Clinical Impression: Cellulitis of foot, right, Hyperglycemia due to diabetes mellitus Patient Disposition: Home, Self-Care Instructions: Cellulitis (ED) Additional Instructions: return to the emergency department on 06/23 for wound check. Prescriptions: New doxycycline hyclate 100 mg tablet 100 mg PO BID Qty: 20 0RF mupirocin 2 % ointment 1 appl topical TID Qty: 22 0RF Rx Instructions: apply to the affected area in the right foot 3 times a day. oxycodone 5 mg tablet 5 mg PO Q8H PRN (Reason: pain) Qty: 7 0RF Rx Instructions: Partial Fill upon patient request. No Action omeprazole 20 mg capsule,delayed release(DR/EC) 1 cap PO DAILY PRN (Reason: Acid Reflux) ergocalciferol (vitamin D2) 1,250 mcg (50,000 unit) capsule 1,250 mcg PO QWEEK albuterol sulfate 90 mcg/actuation HFA aerosol inhaler 2 puff inhalation Q4-6H PRN (Reason: respiratory symptoms) lisinopril 2.5 mg tablet 1 tab PO DAILY Flovent HFA 110 mcg/actuation HFA aerosol inhaler 1 puff PO BID Lantus Solostar U-100 Insulin 100 unit/mL (3 mL) insulin pen 34 unit subcut QPM Trulicity 0.75 mg/0.5 mL pen injector 0.75 mg subcut QWEEK Patient Comments: on wednesdays trazodone 50 mg tablet 1 tab PO BEDTIME PRN (Reason: insomnia) doxycycline monohydrate 100 mg tablet 100 mg PO BID 14 Days Qty: 28 0RF Referrals: Ashley Kebede MD [Primary Care Provider] - Stand Alone Forms: Work/School Release
[2022-08-05 17:22] LABS: Lactic Acid 1.3 mmol/L (0.5-2.0)
[2022-08-05 17:25] LABS: INTERNATIONAL NORM RATIO 0.9 (0.9-1.1); Prothrombin Time 10.7 SEC (10.0-13.1)
[2022-08-05 17:32] LABS: B Type Natriuretic Peptide < 10 pg/mL (<100)
[2022-08-05 17:33] LABS: Alanine Aminotransferase 78 U/L (0-31); Albumin Level 4.4 g/dL (3.5-5.0); Alkaline Phosphatase 134 U/L (39-117); Anion Gap 14 (12-20); Aspartate Amino Transferase 50 U/L (5-31); Bilirubin Direct 0.1 mg/dL (0.0-0.5); Bilirubin Total 0.6 mg/dL (0.0-1.0); Blood Urea Nitrogen 10 mg/dL (9-16); Calcium 10.1 mg/dL (8.4-10.2); Carbon Dioxide 28 mmol/L (22-29); Chloride 98 mmol/L (96-108); Creatinine Clr Calc Pharmacy 107.6; Estimated Glomerular Filt Rate > 60; Glucose Random 394 mg/dL (60-115); Potassium 4.5 mmol/L (3.3-5.1); Sodium 135 mmol/L (135-145); Total Protein 8.5 g/dL (6.5-8.0)
[2022-08-05] MEDS: 0.9 % Sodium Chloride 1,000 ML 999 ML IV (17:48)
[2022-08-05 17:50] LABS: Erythrocyte Sedimentation Rate 24 MM/HR (0-20)
[2022-08-05 17:52] LABS: MANUAL DIFF FLAG NO
[2022-08-05 17:53] LABS: Basophils Absolute Auto 0.1 X10*3/uL (0.0-0.2); Basophils Percent Auto 0.6 % (0-2); Eosinophils Absolute Auto 0.2 X10*3/uL (0.0-0.4); Eosinophils Percent Auto 1.8 % (0-4); Hematocrit 47.1 % (37.0-47.0); Hemoglobin 15.7 g/dl (12.0-16.0); Imm Gran Abs Auto 0.05 X10*3/uL (0.00-0.03); Imm Gran Pct Auto 0.4 % (0.0-0.4); Lymphocytes Absolute Auto 3.9 X10*3/uL (1.2-4.9); Lymphocytes Percent Auto 31.1 % (20-40); Mean Corpuscular HGB Conc 33.3 g/dl (31.0-35.0); Mean Corpuscular Hemoglobin 28.6 pg (27.0-33.0); Mean Corpuscular Volume 85.9 fL (80.0-98.0); Mean Platelet Volume 10.7 fL (9.4-12.3); Monocytes Percent Auto 7.8 % (2-11); Neutrophils Absolute Auto 7.3 x10*3/uL (2.0-8.3); Neutrophils Percent Auto 58.3 % (45-73); Platelet Count 331 X10*3/uL (160-400); Red Blood Count 5.48 X10*6/uL (4.20-5.50); Red Cell Distribution Width 13.2 % (11.0-16.0); White Blood Count 12.6 X10*3/uL (4.8-10.8)
[2022-08-05 18:06] LABS: Glucose, Whole Blood 413 mg/dL (60-115)
[2022-08-05] MEDS: Insulin Regular, Human 100 UNIT/ML 3 ML VIAL 10 UNIT IVPUSH (18:08)
[2022-08-05] MEDS: Doxycycline Monohydrate 100 MG CAPSULE PO (18:08)
[2022-08-05] MEDS: Morphine Sulfate 2 MG/ML CARTRIDGE IVPUSH (18:21)
--- NOTE | 2022-08-05 19:12 | MHC.EDTECH ---
POC IS 204 RN BRUNILDA WAS Notified
[2022-08-05 19:14] LABS: Glucose, Whole Blood 204 mg/dL (60-115)
[2022-08-05 19:21] VITALS: BP 113/59; PULSE 85; RESP 18; TEMP 36.6; O2SAT 99
--- NOTE | 2022-08-05 19:40 | PC.NURSE ---
tobacco conditioner marlene at bedside for eval upon d/c. understandgs d/c instructions w/rn and tobacco conditioner. vss. piv removed.
== END 2022-08-05 19:43 | disposition home or self-care (01) ==
PROVIDERS: Physician Assistant; Emergency Provider Emergency Medicine; PCP Family Medicine
DX: L03.115 Cellulitis of right lower limb (principal); M79.671 Pain in right foot; E11.65 Type 2 diabetes mellitus with hyperglycemia; I10 Essential (primary) hypertension; F17.210 Nicotine dependence, cigarettes, uncomplicated; Z79.4 Long term (current) use of insulin
CPT/HCPCS: 36415; 73630; 80048; 80076; 82947; 83605; 83880; 85025; 85610; 85652; 86140; 87040; 96361; 96374; 96375; 99284; J2270

== ENCOUNTER 2022-08-07 13:53 | Inpatient (IN) | payer MEDICAID, SELFPAY ==
--- NOTE | ~2022-08-07 | XR_ITS ---
EXAMINATION: XR FOOT, RIGHT CLINICAL INFORMATION: Pain. Osteomyelitis. COMPARISON: Previous x-ray 08/05/2022 TECHNIQUE: AP, lateral, and oblique views of the right foot. FINDINGS: The bones and soft tissues are normal. No fracture. Alignment is anatomic. Joint spaces are maintained. XR/XR foot RT 2V IMPRESSION: Normal right foot.
--- NOTE | 2022-08-07 14:28 | ED.GENADULT ---
HPI - General Adult General Chief complaint: Wound/Laceration Stated complaint: R feet pain Time Seen by Provider: 08/07/22 19:48 Source: patient Mode of arrival: ambulatory Limitations: no limitations History of Present Illness HPI narrative: This is a 37-year-old female history of obesity, GERD, hypertension, poorly-controlled diabetes presenting with worsening right foot cellulitis despite antibiotic treatment with doxycycline for the past 2-3 days. Patient reports severe right-sided foot pain, she tells me that the foot is much more painful when she walks and it is red, swollen, she tells me it was not like this a few days ago. Denies numbness and tingling. She is worried because she has required hospital admission in the past for IV antibiotics due to nonhealing wounds. Related Data Home Medications Medication Instructions Recorded Confirmed albuterol sulfate 90 mcg/actuation 2 puff inhalation Q4-6H PRN 09/15/20 04/08/21 aerosol inhaler respiratory symptoms fluticasone propionate 110 1 puff PO BID 09/15/20 04/08/21 mcg/actuation HFA aerosol inhaler (Flovent HFA) insulin glargine 100 unit/mL (3 34 unit subcut QPM 09/15/20 04/08/21 mL) subcutaneous pen (Lantus Solostar U-100 Insulin) omeprazole 20 mg capsule,delayed 1 cap PO DAILY PRN Acid Reflux 09/15/20 04/08/21 release trazodone 50 mg tablet 1 tab PO BEDTIME PRN insomnia 04/08/21 04/08/21 Allergies Allergy/AdvReac Type Severity Reaction Status Date / Time No Known Allergies Allergy Verified 08/07/22 14:32 Review of Systems Review of Systems: Constitutional : No Weight loss, No Fever, No Chills, No Fatigue, No Malaise ENT/Mouth : No sore throat, No Rhinorrhea Eyes: No Eye Pain, No Swelling, No Redness Cardiovascular : No Chest Pain, No SOB, No Dyspnea on Exertion, No Orthopnea, No Edema, No Palpitations Respiratory : No Cough, No Sputum, No Wheezing Gastrointestinal : No Nausea, No Vomiting, No Diarrhea, No Constipation, No abdominal Pain, No Hematochezia, No Melena Genitourinary : No Dysuria, No Urinary Frequency, No Hematuria, Musculoskeletal : + joint pain, No Myalgias, No Joint Swelling Skin : No Skin Lesions, + rash Neuro : No Weakness, No Numbness, No Dizziness, No Headache Psych : No Anxiety/Panic, No Depression All other systems reviewed and are negative Yes all other systems are reviewed and are negative [facility] Past Medical History Attestation statement: The following information was validated with the patient. Source: old records reviewed and nursing notes reviewed Medical History (Updated 08/07/22 @ 21:41 by Erika Orantes MD) Asthma Diabetes GERD (gastroesophageal reflux disease) Hypertension Family History Family History Other Asthma Social History Social History Household Members: Family Household Members Other:: and sister Housing: Apartment Do you presently have visiting nurse or other home services: No Alcohol intake: current Alcohol intake frequency: holidays/special occasions only Patient Tobacco Use Status: Current everyday Tobacco user Tobacco use type: Cigarette Cigarettes Per Day: 2 Advance Directives: Yes Advance Directives on File: Yes Advance Directives Date on File: 04/14/21 service: No Current occupational status: employed 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 Oriented X3.? No acute distress.? Head: Normocephalic, atraumatic, no step-offs or deformities Eyes: Pupils equal, round and reactive to light.? ENT: Pharynx normal.??External ears normal, TMs normal bilaterally and EAC's normal. No pain with manipulation of external ears bilaterally. No mastoid tenderness. Neck: Normal inspection.? Neck supple.? CVS: Normal heart rate and rhythm.? Pulses normal.? Respiratory: No respiratory distress.? Breath sounds normal.? Abdomen: Soft and nontender.? Skin: Skin warm and dry.? Normal skin color.? Normal skin turgor.? Extremities: No lower extremity edema.? No calf ttp. 5/5 strength to bilateral upper and lower extremities + 4 x 4 cm area of errythema, warmth between the right 2nd and 3rd toe, extremely tender to touch, no fluctuation, no pus or discharge , no active bleeding, 2+ DP,AT, PT pulses eqeual and b/l. . Back: No midline tenderness, no C-spine tenderness, full range of motion, no CVA tenderness bilaterally Neuro: Oriented X 3.? No motor deficit.? No sensory deficit. CN 2-12 intact Course Course Course Narrative: RME performed by Catherine Meyer PA-C. Patient is a 37 year old assigned female at presenting to the emergency department with worsening right foot cellulitis. Labs and imaging ordered. Patient placed back in the waiting room pending room availability and results. Reevaluation(s) Reevaluation #1: CBC with elevated white blood cell count 15.8, no left shift, however upon chart review it appears as though patient has a chronic leukocytosis. Chemistry no acute findings requiring intervention. Magnesium 1.5 will give IV Mag. CRP elevated 2.0 1 however it is lower than patient's last CRP. X-ray of right foot normal. Patient feeling p.o. antibiotics gave Zosyn for antibiotic coverage. Spoke to hospitalist will admit this patient Time: 21:47 Medical Decision Making Medical Decision Making MDM Narrative: 37-year-old female presents to the emergency department for worsening right foot wound despite antibiotics for the past few days. Was seen here few days ago. Physical examination significant for No lower extremity edema.? No calf ttp. 5/5 strength to bilateral upper and lower extremities + 4 x 4 cm area of errythema, warmth between the right 2nd and 3rd toe, extremely tender to touch, no fluctuation, no pus or discharge , no active bleeding, 2+ DP,AT, PT pulses eqeual and b/l. . Concerns for worsening cellulitis. Unlikely necrotizing infection, osteomyelitis, sepsis. Plan at this time labs, imaging. Patient may require hospital admission due to failing outpatient p.o. therapy. Upon chart review it appears as though patient was discharged home on doxycycline 100 mg p.o. b.i.d. for 10 days also mupirocin ointment and oxycodone. Differential Diagnosis Differential Diagnoses: The differential diagnosis associated with the presentation includes Concerns for worsening cellulitis. Unlikely necrotizing infection, osteomyelitis, sepsis. Admission/Observation Consideration of admission/observation: Escalation of care including admission/observation considered Lab Data MDM Lab Attestation statement: I reviewed the patient's lab results. 08/07/22 15:20 08/07/22 15:20 Labs: Lab Results 08/07/22 08/07/22 08/07/22 Range/Units 15:20 15:20 15:20 WBC 15.8 H (4.8-10.8) X10*3/uL RBC 5.42 (4.20-5.50) X10*6/uL Hgb 15.3 (12.0-16.0) g/dl Hct 46.3 (37.0-47.0) % MCV 85.4 (80.0-98.0) fL MCH 28.2 (27.0-33.0) pg MCHC 33.0 (31.0-35.0) g/dl RDW 13.2 (11.0-16.0) % Plt Count 346 (160-400) X10*3/uL MPV 10.4 (9.4-12.3) fL Immature Gran % (Auto) 0.4 (0.0-0.4) % Neut % (Auto) 68.0 (45-73) % Lymph % (Auto) 23.9 (20-40) % [place] % (Auto) 6.5 (2-11) % Eos % (Auto) 0.8 (0-4) % Baso % (Auto) 0.4 (0-2) % Lymph # (Auto) 3.8 (1.2-4.9) X10*3/uL [place] # (Auto) 1.0 (0.1-1.2) X10*3/uL Eos # (Auto) 0.1 (0.0-0.4) X10*3/uL Baso # (Auto) 0.1 (0.0-0.2) X10*3/uL Abs Immat Gran (auto) 0.06 H (0.00-0.03) X10*3/uL Absolute Neuts (auto) 10.8 H (2.0-8.3) x10*3/uL Absolute Nucleated RBC 0.000 (0.0-0.012) X10*3/uL Nucleated RBC % (auto) 0.0 (0.0-0.2) /100WBC ESR 27 H (0-20) MM/HR Sodium 136 (135-145) mmol/L Potassium 4.2 (3.3-5.1) mmol/L Chloride 100 (96-108) mmol/L Carbon Dioxide 25 (22-29) mmol/L Anion Gap 15 (12-20) BUN 10 (9-16) mg/dL Creatinine 0.69 (0.5-1.4) mg/dL Estim Creat Clear Calc 145.0 Estimated GFR > 60 Random Glucose 165 H (60-115) mg/dL Lactic Acid (0.5-2.0) mmol/L Calcium 9.8 (8.4-10.2) mg/dL Magnesium 1.5 L (1.6-2.6) mg/dL Total Bilirubin 0.6 (0.0-1.0) mg/dL AST 69 H (5-31) U/L ALT 75 H (0-31) U/L Alkaline Phosphatase 110 (39-117) U/L C-Reactive Protein 2.01 H (< or = 0.50) mg/dL Total Protein 7.7 (6.5-8.0) g/dL Albumin 3.9 (3.5-5.0) g/dL 08/07/22 Range/Units 15:20 WBC (4.8-10.8) X10*3/uL RBC (4.20-5.50) X10*6/uL Hgb (12.0-16.0) g/dl Hct (37.0-47.0) % MCV (80.0-98.0) fL MCH (27.0-33.0) pg MCHC (31.0-35.0) g/dl RDW (11.0-16.0) % Plt Count (160-400) X10*3/uL MPV (9.4-12.3) fL Immature Gran % (Auto) (0.0-0.4) % Neut % (Auto) (45-73) % Lymph % (Auto) (20-40) % [place] % (Auto) (2-11) % Eos % (Auto) (0-4) % Baso % (Auto) (0-2) % Lymph # (Auto) (1.2-4.9) X10*3/uL [place] # (Auto) (0.1-1.2) X10*3/uL Eos # (Auto) (0.0-0.4) X10*3/uL Baso # (Auto) (0.0-0.2) X10*3/uL Abs Immat Gran (auto) (0.00-0.03) X10*3/uL Absolute Neuts (auto) (2.0-8.3) x10*3/uL Absolute Nucleated RBC (0.0-0.012) X10*3/uL Nucleated RBC % (auto) (0.0-0.2) /100WBC ESR (0-20) MM/HR Sodium (135-145) mmol/L Potassium (3.3-5.1) mmol/L Chloride (96-108) mmol/L Carbon Dioxide (22-29) mmol/L Anion Gap (12-20) BUN (9-16) mg/dL Creatinine (0.5-1.4) mg/dL Estim Creat Clear Calc Estimated GFR Random Glucose (60-115) mg/dL Lactic Acid 1.1 (0.5-2.0) mmol/L Calcium (8.4-10.2) mg/dL Magnesium (1.6-2.6) mg/dL Total Bilirubin (0.0-1.0) mg/dL AST (5-31) U/L ALT (0-31) U/L Alkaline Phosphatase (39-117) U/L C-Reactive Protein (< or = 0.50) mg/dL Total Protein (6.5-8.0) g/dL Albumin (3.5-5.0) g/dL Critical Care Time Critical Care Time Critical Care Time: Yes Total Critical Care Time: 35 Attestation: I attest to this time spent taking care of the patient, obtaining history, physical, reviewing labs, imaging, speaking to my attending, speaking to specialist. Discharge Plan Discharge Clinical Impression: Cellulitis, Foot pain, right Patient Disposition: Admitted As Inpatient Prescriptions: No Action omeprazole 20 mg capsule,delayed release(DR/EC) 1 cap PO DAILY PRN (Reason: Acid Reflux) ergocalciferol (vitamin D2) 1,250 mcg (50,000 unit) capsule 1,250 mcg PO QWEEK albuterol sulfate 90 mcg/actuation HFA aerosol inhaler 2 puff inhalation Q4-6H PRN (Reason: respiratory symptoms) lisinopril 2.5 mg tablet 1 tab PO DAILY Flovent HFA 110 mcg/actuation HFA aerosol inhaler 1 puff PO BID Lantus Solostar U-100 Insulin 100 unit/mL (3 mL) insulin pen 34 unit subcut QPM Trulicity 0.75 mg/0.5 mL pen injector 0.75 mg subcut QWEEK Patient Comments: on wednesdays trazodone 50 mg tablet 1 tab PO BEDTIME PRN (Reason: insomnia) doxycycline monohydrate 100 mg tablet 100 mg PO BID 14 Days Qty: 28 0RF doxycycline hyclate 100 mg tablet 100 mg PO BID Qty: 20 0RF mupirocin 2 % ointment 1 appl topical TID Qty: 22 0RF Rx Instructions: apply to the affected area in the right foot 3 times a day. oxycodone 5 mg tablet 5 mg PO Q8H PRN (Reason: pain) Qty: 7 0RF Rx Instructions: Partial Fill upon patient request.
[2022-08-07 14:29] VITALS: BP 135/81; PULSE 91; RESP 18; TEMP 37.1; O2SAT 97; BMI 39.2
[2022-08-07 15:27] LABS: MANUAL DIFF FLAG NO
[2022-08-07 15:30] LABS: Basophils Absolute Auto 0.1 X10*3/uL (0.0-0.2); Basophils Percent Auto 0.4 % (0-2); Eosinophils Absolute Auto 0.1 X10*3/uL (0.0-0.4); Eosinophils Percent Auto 0.8 % (0-4); Hematocrit 46.3 % (37.0-47.0); Hemoglobin 15.3 g/dl (12.0-16.0); Imm Gran Abs Auto 0.06 X10*3/uL (0.00-0.03); Imm Gran Pct Auto 0.4 % (0.0-0.4); Lymphocytes Absolute Auto 3.8 X10*3/uL (1.2-4.9); Lymphocytes Percent Auto 23.9 % (20-40); Mean Corpuscular Hemoglobin 28.2 pg (27.0-33.0); Mean Corpuscular Volume 85.4 fL (80.0-98.0); Mean Platelet Volume 10.4 fL (9.4-12.3); Monocytes Percent Auto 6.5 % (2-11); Neutrophils Absolute Auto 10.8 x10*3/uL (2.0-8.3); Platelet Count 346 X10*3/uL (160-400); Red Blood Count 5.42 X10*6/uL (4.20-5.50); Red Cell Distribution Width 13.2 % (11.0-16.0); White Blood Count 15.8 X10*3/uL (4.8-10.8)
[2022-08-07 16:10] LABS: Erythrocyte Sedimentation Rate 27 MM/HR (0-20)
[2022-08-07 16:24] LABS: Lactic Acid 1.1 mmol/L (0.5-2.0)
[2022-08-07 17:34] LABS: Alanine Aminotransferase 75 U/L (0-31); Albumin Level 3.9 g/dL (3.5-5.0); Alkaline Phosphatase 110 U/L (39-117); Anion Gap 15 (12-20); Aspartate Amino Transferase 69 U/L (5-31); Bilirubin Total 0.6 mg/dL (0.0-1.0); Blood Urea Nitrogen 10 mg/dL (9-16); C Reactive Protein 2.01 mg/dL (< or = 0.50); Calcium 9.8 mg/dL (8.4-10.2); Carbon Dioxide 25 mmol/L (22-29); Chloride 100 mmol/L (96-108); Estimated Glomerular Filt Rate > 60; Glucose Random 165 mg/dL (60-115); Magnesium 1.5 mg/dL (1.6-2.6); Potassium 4.2 mmol/L (3.3-5.1); Sodium 136 mmol/L (135-145); Total Protein 7.7 g/dL (6.5-8.0)
[2022-08-07 19:44] VITALS: BP 101/53; PULSE 90; RESP 18; TEMP 37; O2SAT 98
--- NOTE | 2022-08-07 19:44 | PC.NURSE ---
returns with small wound in between 2nd-3rd right toes that pt states is worsening. c/o increase pain/erythema/edema. waiting for ED provider.
[2022-08-07] MEDS: Piperacillin Sodium/Tazobactam 3.375 GM in 0.9 % Sodium Chloride 50 ML IV (20:40)
[2022-08-07] MEDS: 0.9 % Sodium Chloride 1,000 ML 999 ML IV (21:00)
--- NOTE | 2022-08-07 21:34 | P.HPHOSP_ITS ---
History of Present Illness Date of Service: 08/07/22 Chief Complaint: Foot pain This is a 37-year-old female with pertinent history of insulin-dependent diabetes mellitus, gastroesophageal reflux disease, asthma not on home oxygen, mood disorder who presents to the emergency department for right foot warmth, tenderness and redness. Patient states she 1st noticed wound over the right foot about a week ago. It was red, warm and tender. Patient had a wound which has been nonhealing and associated with purulent discharge. She was seen in the ER 2 days prior to presentation and was sent home on p.o. antibiotics. Patient states that antibiotics have not helped and the wound continues to be progress with foul-smelling drainage. No fever, chills, nausea, vomiting, chest discomfort, palpitations, shortness of breath, abdominal pain, changes in urinary or bowel habits. No trauma to the foot. In the emergency department, patient was found to be septic Review of Systems Constitutional: Constitutional: Reports no additional constitutional complaints Cardiovascular: Cardiovascular: Reports no additional cardiovascular complaints Respiratory: Respiratory: Reports no additional respiratory complaints Gastrointestinal: Gastrointestinal: Reports no additional gastrointestinal complaints Genitourinary: Genitourinary: Reports no additional female genitourinary complaints [facility] Medical History Asthma Diabetes GERD (gastroesophageal reflux disease) Hypertension Family History Other Asthma Social History Household Members: Family Household Members Other:: and sister Housing: Apartment Do you presently have visiting nurse or other home services: No Alcohol intake: current Alcohol intake frequency: holidays/special occasions only Patient Tobacco Use Status: Current everyday Tobacco user Tobacco use type: Cigarette Cigarettes Per Day: 2 Advance Directives: Yes Advance Directives on File: Yes Advance Directives Date on File: 04/14/21 service: No Current occupational status: employed 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 Allergies Allergy/AdvReac Type Severity Reaction Status Date / Time No Known Allergies Allergy Verified 08/07/22 14:32 Active Medications: Current Medications Sodium Chloride (Ns) 1,000 mls @ 999 mls/hr IV .Q1H1M DEL Stop: 08/07/22 21:45 Pharmacy Consult (Consult Rx Perform Med Rec) 1 each MISCELLANE ONCE PRN PRN Reason: Consult order Home Medications Medication Instructions Recorded Confirmed Last Taken Type albuterol sulfate 90 mcg/actuation 2 puff inhalation Q4-6H PRN 09/15/20 08/07/22 Unknown History aerosol inhaler respiratory symptoms fluticasone propionate 110 1 puff PO BID 09/15/20 08/07/22 08/07/22 09:00 History mcg/actuation HFA aerosol inhaler (Flovent HFA) insulin glargine 100 unit/mL (3 35 unit subcut BEDTIME 09/15/20 08/07/22 08/07/22 09:00 History mL) subcutaneous pen (Lantus Solostar U-100 Insulin) omeprazole 20 mg capsule,delayed 1 cap PO DAILY PRN Acid Reflux 09/15/20 08/07/22 Unknown History release trazodone 50 mg tablet 1 tab PO BEDTIME PRN insomnia 04/08/21 08/07/22 Unknown History albuterol sulfate 2.5 mg/3 mL 2.5 mg inhalation Q4H PRN dyspnea 08/07/22 08/07/22 Unknown History (0.083 %) solution for nebulization loperamide 2 mg capsule 4 mg PO TID PRN diarrhea 08/07/22 08/07/22 Unknown History melatonin 10 mg tablet 10 mg PO BEDTIME PRN Insomnia 08/07/22 08/07/22 Unknown History metformin 500 mg tablet,extended 1,000 mg PO BID 08/07/22 08/07/22 08/07/22 09:00 History release 24 hr Physical Exam Vital Signs and Narrative: Vital Signs: Last Vital Signs Temp 98.6 F 08/07/22 19:44 Pulse 90 08/07/22 19:44 Resp 18 08/07/22 19:44 BP 101/53 L 08/07/22 19:44 Pulse Ox 98 08/07/22 19:44 O2 Del Method Room Air 08/07/22 19:44 BMI result Body Mass Index 39.2 Middle-aged female lying in bed in no distress Neck supple, no JVD Regular rate and rhythm, S1-S2 heard Regular breath sounds bilaterally, no wheezing or crackles appreciated Abdomen soft nontender, no guarding, no rigidity Patient is awake, alert and oriented to self, place, time and person ; no focal motor deficit Msk: Right foot redness with warmth, erythema, tenderness ; purulent drainage with wound noted between right 2nd and 3rd toe Psych: Normal mood No pedal edema Results Labs 08/07/22 15:20 08/07/22 15:20 Labs: Laboratory Results - last 24 hr 08/07/22 08/07/22 08/07/22 15:20 15:20 15:20 MCV 85.4 MCH 28.2 MCHC 33.0 RDW 13.2 Plt Count 346 MPV 10.4 Immature Gran % (Auto) 0.4 Neut % (Auto) 68.0 Lymph % (Auto) 23.9 [place] % (Auto) 6.5 Eos % (Auto) 0.8 Baso % (Auto) 0.4 Lymph # (Auto) 3.8 [place] # (Auto) 1.0 Eos # (Auto) 0.1 Baso # (Auto) 0.1 Abs Immat Gran (auto) 0.06 H Absolute Neuts (auto) 10.8 H Absolute Nucleated RBC 0.000 Nucleated RBC % (auto) 0.0 ESR 27 H Anion Gap 15 Estim Creat Clear Calc 145.0 Estimated GFR > 60 Random Glucose 165 H Lactic Acid Calcium 9.8 Magnesium 1.5 L Total Bilirubin 0.6 AST 69 H ALT 75 H Alkaline Phosphatase 110 C-Reactive Protein 2.01 H Total Protein 7.7 Albumin 3.9 08/07/22 15:20 MCV MCH MCHC RDW Plt Count MPV Immature Gran % (Auto) Neut % (Auto) Lymph % (Auto) [place] % (Auto) Eos % (Auto) Baso % (Auto) Lymph # (Auto) [place] # (Auto) Eos # (Auto) Baso # (Auto) Abs Immat Gran (auto) Absolute Neuts (auto) Absolute Nucleated RBC Nucleated RBC % (auto) ESR Anion Gap Estim Creat Clear Calc Estimated GFR Random Glucose Lactic Acid 1.1 Calcium Magnesium Total Bilirubin AST ALT Alkaline Phosphatase C-Reactive Protein Total Protein Albumin Imaging Radiologist's Impressions: Impressions Foot X-Ray 08/07/22 15:03 IMPRESSION: Normal right foot. Assessment and Plan (1) Cellulitis: Status: Acute Plan This is a 37-year-old female with pertinent history of insulin-dependent diabetes mellitus, gastroesophageal reflux disease, asthma not on home oxygen, mood disorder who presents to the emergency department for right foot warmth, tenderness and redness #. Sepsis due to purulent cellulitis with infected diabetic wound: Failed p.o. outpatient antibiotics. Resuscitated IV crystalloids. Lactic acid and blood culture obtained. Initiating empiric IV abx. Monitor for improvement #. Insulin-dependent diabetes mellitus. Reduce home basal insulin. Initiating Accu-Cheks with sliding scale insulin. Hold metformin #. Gastroesophageal reflux disease: On PPI #. Asthma: Continue home inhaler. Not in exacerbation during admission #. Mood disorder: On trazodone DVT prophylaxis: Lovenox Full code Diabetic diet Admit as inpatient and will require two night minimum hospital stay for IV antibiotics Time Spent With Patient Time: Total time managing care of this patient today ____ minutes. Quality Stroke Does the patient have a stroke diagnosis?: No VTE Prior VTE?: No VTE Risk Level:: Medical - moderate - high VTE Device Contraindication: Treatment Not Indicated VTE Drug Contraindication: N/A - Med Ordered
--- NOTE | 2022-08-07 21:57 | PHA.MEDREC ---
Addendum entered by Jessee Carrillo 08/07/22 21:57: Patient recently prescribed mupirocin 2% ointment TID and oxy 5mg q8h prn on 08/05/22, however have not filled at pharmacy yet. Original Note: Pharmacy Consult ? Medication Reconciliation Pharmacy has completed the medication reconciliation Spoke to patient to confirm meds..
[2022-08-07] MEDS: Morphine Sulfate 4 MG/ML CARTRIDGE IVPUSH (22:21)
[2022-08-07] MEDS: vancomycin/NS 2,000 MG/500 ML PLAST..BAG 250 MG IV (22:25)
[2022-08-07] MEDS: Enoxaparin Sodium 40 MG/0.4 ML SYRINGE SUBCUT (22:25)
--- NOTE | 2022-08-07 22:39 | MHC.CM.PN ---
CM met with admitted patient with bed assignment pending. A&Ox4. Lives with spouse and 2 children. Employed-has 2 jobs-[employer] in [place] and [employer] in [place]. THRIVE assessment completed. Negative. PCP Dr. Ashley Kebede. HCP on file. HCP/spouse Ilya Metcalf ([phone]). 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 D/C plan: Home without services. Spouse to transport. CM following for any discharge needs.
--- NOTE | 2022-08-07 22:45 | PHA.PROG ---
Admission Date/Time: August 07, 2022 21:33 Indication: skin Weight in k.398 kg Adjusted body weight in Kg: [place] body weight in Kg: Obesity Dosing Indication % IBW: Serum Creatinine - Last 168 Hours 08/07/22 15:20 Creatinine 0.69 Estimated CrCl and GFR - Last 168 Hours 08/07/22 15:20 Estim Creat Clear Calc 145.0 Estimated GFR > 60 Vancomycin Loading Dose: 2000 mg Current Vancomycin Dosing Regimen: 1250 q 12h Vancomycin Monitoring using AUC goal of 400 - 600 range with trough as surrogate marker: auc 555, trough 15.5 Date and Time for next Vancomycin Level to be drawn: 08/09 @0800 Pharmacist Comments on Vancomycin Plan: Vancomycin dosing will take advantage of [employer] as a clinical decision support tool that uses Bayesian modeling to calculate individual patient's pharmacokinetic parameters and forecast the patient's drug concentration time course with the target goal AUC 24 range of 400 - 600 mg/L/hr.
[2022-08-08] VITALS (10 sets, daily range): BP systolic 107–136; BP diastolic 52–85; PULSE 75–96; RESP 14–20; TEMP 36.1–36.8; O2SAT 92–99; BMI 39.2
[2022-08-08] MEDS: 0.9 % Sodium Chloride Flush 3 ML SYRINGE IVFLUSH ×3 (02:02→20:21)
[2022-08-08] MEDS: Insulin Glargine,Hum.rec.anlog 100 UNIT/ML 10 ML VIAL 28 UNIT SUBCUT ×2 (02:02→21:30)
[2022-08-08 03:21] LABS: Glucose, Whole Blood 139 mg/dL (60-115)
[2022-08-08] MEDS: Piperacillin Sodium/Tazobactam 4.5 GM in 0.9 % Sodium Chloride 100 ML IV ×4 (04:30→20:19)
[2022-08-08 06:37] LABS: Basophils Absolute Auto 0.1 X10*3/uL (0.0-0.2); Basophils Percent Auto 0.4 % (0-2); Eosinophils Absolute Auto 0.2 X10*3/uL (0.0-0.4); Eosinophils Percent Auto 1.3 % (0-4); Hematocrit 40.1 % (37.0-47.0); Hemoglobin 13.3 g/dl (12.0-16.0); Imm Gran Abs Auto 0.07 X10*3/uL (0.00-0.03); Imm Gran Pct Auto 0.4 % (0.0-0.4); Lymphocytes Absolute Auto 5.8 X10*3/uL (1.2-4.9); Lymphocytes Percent Auto 36.2 % (20-40); MANUAL DIFF FLAG SCAN; Mean Corpuscular HGB Conc 33.2 g/dl (31.0-35.0); Mean Corpuscular Hemoglobin 28.5 pg (27.0-33.0); Mean Corpuscular Volume 85.9 fL (80.0-98.0); Mean Platelet Volume 10.5 fL (9.4-12.3); Monocytes Percent Auto 6.3 % (2-11); Neutrophils Absolute Auto 8.8 x10*3/uL (2.0-8.3); Neutrophils Percent Auto 55.4 % (45-73); Platelet Count 296 X10*3/uL (160-400); Red Blood Count 4.67 X10*6/uL (4.20-5.50); Red Cell Distribution Width 13.4 % (11.0-16.0); SCAN SMEAR FLAG 1; White Blood Count 15.9 X10*3/uL (4.8-10.8)
[2022-08-08 06:46] LABS: SLIDE REVIEW VERIFIED
[2022-08-08 06:49] LABS: Anion Gap 11 (12-20); Blood Urea Nitrogen 9 mg/dL (9-16); Calcium 8.8 mg/dL (8.4-10.2); Carbon Dioxide 24 mmol/L (22-29); Chloride 105 mmol/L (96-108); Estimated Glomerular Filt Rate > 60; Glucose Random 181 mg/dL (60-115); Potassium 3.7 mmol/L (3.3-5.1); Sodium 136 mmol/L (135-145)
[2022-08-08] MEDS: Fluticasone Propionate 100 MCG BLST.W.DEV 1 PUFF INHALE (07:42)
[2022-08-08 07:47] LABS: Glucose, Whole Blood 169 mg/dL (60-115)
[2022-08-08] MEDS: Insulin Lispro 100 UNIT/ML 3 ML VIAL SUBCUT ×3 (08:01→20:19)
[2022-08-08] MEDS: Morphine Sulfate 2 MG/ML CARTRIDGE IVPUSH ×2 (08:55→21:38)
[2022-08-08] MEDS: vancomycin HCL 1,250 MG in 0.9 % Sodium Chloride 250 ML 166.67 MG IV ×2 (10:11→21:39)
[2022-08-08 11:14] LABS: Glucose, Whole Blood 144 mg/dL (60-115)
--- NOTE | 2022-08-08 12:03 | HO.PM.IMPN ---
Subjective Subjective Date of Service: 08/09/22 Review of Systems follow-up diabetic foot wound mild pain to the dorsal aspect of foot Physical Exam Vital Signs: Vital Signs: Last Vital Signs Temp 97.1 F 08/08/22 11:07 Pulse 76 08/08/22 11:07 Resp 20 08/08/22 11:07 BP 107/55 L 08/08/22 11:07 Pulse Ox 97 08/08/22 11:07 O2 Del Method Room Air 08/08/22 11:07 BMI result Body Mass Index 39.2 Appearing in no acute distress lung sounds are clear to auscultation heart regular rate rhythm, clear S1, S2 positive bowel sounds, abdomen is soft, nontender neuro patient is alert x3, no focal deficits Objective Data Active Medications Acetaminophen (Acetaminophen 325 Mg Tablet) 650 mg PO Q6H PRN PRN Reason: Pain, Mild (Pain Scale 1-3) Albuterol Sulfate (Albuterol Sulfate (0.083%) 2.5 Mg/3 Ml Vial.Neb) 2.5 mg INHALE Q4H PRN PRN Reason: dyspnea Albuterol Sulfate (Albuterol Sulfate 90 Mcg 8 Gm Inhaler) 2 puff INHALE Q4H PRN PRN Reason: respiratory symptoms Dextrose (Dextrose 50 % 25 Gm/50 Ml Syringe) 25 gm IVPUSH Q15M PRN; Protocol PRN Reason: per Hypoglycemia Standing Ord. Enoxaparin Sodium (Enoxaparin Sodium 40 Mg/0.4 Ml Syringe) 40 mg SUBCUT Q24H [facility] Last Admin: 08/07/22 22:25 Dose: 40 mg Documented By: MIKE Fluticasone Propionate (Fluticasone Propionate 100 Mcg Blst.W.Dev) 1 puff INHALE RBID [facility] Last Admin: 08/08/22 07:42 Dose: 1 puff Documented By: ALY Glucose (Glucose Gel 15 Gm Gel..Gram.) 15 gm PO Q15M PRN; Protocol PRN Reason: per Hypoglycemia Standing Ord. Piperacillin Sod/Tazobactam (Sod 4.5 gm/ Sodium Chloride) 100 mls @ 200 mls/hr IV Q6H [facility] Last Infusion: 08/08/22 09:11 Dose: 0 mls/hr Documented By: FOSTEKR Vancomycin HCl 1,250 mg/ (Sodium Chloride) 250 mls @ 166.667 mls/hr IV Q12H [facility] Last Admin: 08/08/22 10:11 Dose: 166.67 mls/hr Documented By: TOMAS Insulin Glargine (Insulin Glargine,Hum.Rec.Anlog 100 Unit/Ml 10 Ml Vial) 28 unit SUBCUT BEDTIME [facility] Last Admin: 08/08/22 02:02 Dose: 28 unit Documented By: OKSANA Insulin Human Lispro (Insulin Lispro 100 Unit/Ml 3 Ml Vial) 0 unit SUBCUT QIDACHS [facility]; Protocol Last Admin: 08/08/22 08:01 Dose: 2 unit Documented By: TOMAS Loperamide HCl (Loperamide Hcl 2 Mg Capsule) 4 mg PO TID PRN PRN Reason: diarrhea Melatonin (Melatonin 3 Mg Tablet) 6 mg PO BEDTIME PRN PRN Reason: Insomnia Melatonin (Melatonin 3 Mg Tablet) 9 mg PO BEDTIME PRN PRN Reason: Insomnia Morphine Sulfate (Morphine Sulfate 2 Mg/Ml Cartridge) 2 mg IVPUSH Q6H PRN; Protocol PRN Reason: Pain, Severe (Pain Scale 7-10) Last Admin: 08/08/22 08:55 Dose: 2 mg Documented By: TOMAS Omeprazole (Omeprazole 20 Mg Capsule.Dr) 20 mg PO DAILY PRN PRN Reason: Acid Reflux Ondansetron HCl (Ondansetron Hcl 4 Mg/2 Ml Vial) 4 mg IVPUSH Q8H PRN PRN Reason: Nausea and Vomiting Pharmacy Consult (Consult Rx Perform Med Rec) 1 each MISCELLANE ONCE PRN PRN Reason: Consult order Pharmacy Consult (Consult Rx Vancomycin Dosing) 1 each MISCELLANE DAILY PRN PRN Reason: Consult order Sodium Chloride (0.9 % Sodium Chloride Flush 3 Ml Syringe) 3 ml IVFLUSH QSHIFT [facility] Last Admin: 08/08/22 08:11 Dose: 3 ml Documented By: TOMAS Trazodone HCl (Trazodone Hcl 50 Mg Tablet) 50 mg PO BEDTIME PRN PRN Reason: insomnia Labs 08/08/22 06:07 08/08/22 06:07 Labs: Laboratory Results - last 24 hr 08/07/22 08/07/22 08/07/22 15:20 15:20 15:20 MCV 85.4 MCH 28.2 MCHC 33.0 RDW 13.2 Plt Count 346 MPV 10.4 Immature Gran % (Auto) 0.4 Neut % (Auto) 68.0 Lymph % (Auto) 23.9 Trinity % (Auto) 6.5 Eos % (Auto) 0.8 Baso % (Auto) 0.4 Lymph # (Auto) 3.8 Trinity # (Auto) 1.0 Eos # (Auto) 0.1 Baso # (Auto) 0.1 Abs Immat Gran (auto) 0.06 H Absolute Neuts (auto) 10.8 H Absolute Nucleated RBC 0.000 Nucleated RBC % (auto) 0.0 Smear Tech's Comments ESR 27 H Anion Gap 15 Estim Creat Clear Calc 145.0 Estimated GFR > 60 POC Glucose Random Glucose 165 H Lactic Acid Calcium 9.8 Magnesium 1.5 L Total Bilirubin 0.6 AST 69 H ALT 75 H Alkaline Phosphatase 110 C-Reactive Protein 2.01 H Total Protein 7.7 Albumin 3.9 08/07/22 08/08/22 08/08/22 15:20 01:31 06:07 MCV 85.9 MCH 28.5 MCHC 33.2 RDW 13.4 Plt Count 296 MPV 10.5 Immature Gran % (Auto) 0.4 Neut % (Auto) 55.4 Lymph % (Auto) 36.2 Trinity % (Auto) 6.3 Eos % (Auto) 1.3 Baso % (Auto) 0.4 Lymph # (Auto) 5.8 H Trinity # (Auto) 1.0 Eos # (Auto) 0.2 Baso # (Auto) 0.1 Abs Immat Gran (auto) 0.07 H Absolute Neuts (auto) 8.8 H Absolute Nucleated RBC 0.000 Nucleated RBC % (auto) 0.0 Smear Tech's Comments VERIFIED ESR Anion Gap Estim Creat Clear Calc Estimated GFR POC Glucose 139 H Random Glucose Lactic Acid 1.1 Calcium Magnesium Total Bilirubin AST ALT Alkaline Phosphatase C-Reactive Protein Total Protein Albumin 08/08/22 08/08/22 08/08/22 06:07 07:16 11:10 MCV MCH MCHC RDW Plt Count MPV Immature Gran % (Auto) Neut % (Auto) Lymph % (Auto) Trinity % (Auto) Eos % (Auto) Baso % (Auto) Lymph # (Auto) Trinity # (Auto) Eos # (Auto) Baso # (Auto) Abs Immat Gran (auto) Absolute Neuts (auto) Absolute Nucleated RBC Nucleated RBC % (auto) Smear Tech's Comments ESR Anion Gap 11 L Estim Creat Clear Calc 154.0 Estimated GFR > 60 POC Glucose 169 H 144 H Random Glucose 181 H Lactic Acid Calcium 8.8 D Magnesium Total Bilirubin AST ALT Alkaline Phosphatase C-Reactive Protein Total Protein Albumin Assessment and Plan (1) Foot abscess, left: Status: Acute Plan 37-year-old female with pertinent history of insulin-dependent diabetes mellitus, gastroesophageal reflux disease, asthma not on home oxygen, mood disorder who presents to the emergency department for right foot warmth, tenderness and redness Sepsis due to purulent cellulitis with infected diabetic wound sepsis resolved Failed p.o. outpatient antibiotics.? Resuscitated with IV crystalloids. Lactic acid and blood culture obtained. continue empiric IV abx.? Insulin-dependent diabetes mellitus.? ss, ada diet Gastroesophageal reflux disease On PPI Asthma Continue home inhaler.? Not in exacerbation during admission Mood disorder On trazodone DVT prophylaxis:? Lovenox Full code hospital stay for IV antibiotics for diabetic foot wound Time Spent With Patient Time: Total time managing care of this patient today ____ minutes. Quality Stroke Does the patient have a stroke diagnosis?: No VTE Prior VTE?: No VTE Risk Level:: Medical - moderate - high VTE Device Contraindication: Treatment Not Indicated VTE Drug Contraindication: N/A - Med Ordered
[2022-08-08 16:24] LABS: Glucose, Whole Blood 193 mg/dL (60-115)
[2022-08-08 20:05] LABS: Glucose, Whole Blood 226 mg/dL (60-115)
[2022-08-08] MEDS: Enoxaparin Sodium 40 MG/0.4 ML SYRINGE SUBCUT (20:19)
[2022-08-09] MEDS: Piperacillin Sodium/Tazobactam 4.5 GM in 0.9 % Sodium Chloride 100 ML IV ×2 (02:11→08:07)
[2022-08-09 03:09] VITALS: BP 113/58; PULSE 77; RESP 20; TEMP 36.2; O2SAT 97
[2022-08-09 07:33] VITALS: BP 103/59; PULSE 80; RESP 18; TEMP 36.2; O2SAT 98
[2022-08-09 07:47] LABS: Glucose, Whole Blood 240 mg/dL (60-115)
[2022-08-09] MEDS: 0.9 % Sodium Chloride Flush 3 ML SYRINGE IVFLUSH (08:08)
[2022-08-09] MEDS: Insulin Lispro 100 UNIT/ML 3 ML VIAL SUBCUT ×2 (08:08→11:59)
[2022-08-09 08:50] LABS: Creatinine Clr Calc Pharmacy 151.7; Estimated Glomerular Filt Rate > 60
[2022-08-09 08:52] LABS: Vancomycin Random 6.1 mcg/mL (15-20)
--- NOTE | 2022-08-09 08:59 | HE.PHANOTE ---
RE: vanco Trough on 08/09 came back low at 6.1mg/L. Changed dose to 1000mg Q8H with predicted trough of 8.1mg/L, AUC of 423mg/L. Next level to be drawn after 3 doses, 08/10 @0800, want to be cautious of dose dumping due to patient's BMI
[2022-08-09 10:49] VITALS: RESP 16
[2022-08-09] MEDS: Morphine Sulfate 2 MG/ML CARTRIDGE IVPUSH (10:49)
[2022-08-09] MEDS: vancomycin HCL 1,000 MG in 0.9 % Sodium Chloride 250 ML 270 MG IV (10:49)
--- NOTE | 2022-08-09 11:26 | P.DS_ITS ---
DS: Providers Provider Date of Service: 08/09/22 Date of admission: 08/07/22 21:33 Primary care physician: Ashley Kebede MD Consults: 08/08/22 12:03 Consult to General Surgery Routine Consulting Provider: [facility] General Surgeons Reason for consultation: foot wound DS: Diagnosis Discharge Diagnosis (1) Foot abscess, left: Status: Acute DS: Summary Hospital Course Hospital Course: This is a 37-year-old female with pertinent history of insulin-dependent diabetes mellitus, gastroesophageal reflux disease, asthma not on home oxygen, mood disorder who presents to the emergency department for right foot warmth, tenderness and redness.? Patient states she 1st noticed wound over the right foot about a week ago.? It was red, warm and tender.? Patient had a wound which has been nonhealing and associated with purulent discharge.? She was seen in the ER 2 days prior to presentation and was sent home on p.o. antibiotics.? Patient states that antibiotics have not helped and the wound continues to be progress with foul-smelling drainage.? No fever, chills, nausea, vomiting, chest discomfort, palpitations, shortness of breath, abdominal pain, changes in urinary or bowel habits.? No trauma to the foot. In the emergency department, patient was found to be septic Sepsis due to purulent cellulitis with infected diabetic wound sepsis resolved Resuscitated with IV crystalloids. negative blood cx Treated with empiric IV abx.? Plan for 6 more days Augmentin and doxycycline. Insulin-dependent diabetes mellitus.? continue home medications Gastroesophageal reflux disease On PPI Asthma Continue home inhaler.? Not in exacerbation during admission Mood disorder On trazodone Time Spent with Patient Time attestation: Total time managing care of this patient today ____ minutes. Discharge coordination time: Greater than 30 minutes Quality: Safe Use of Opioids Does Pt have an Active Cancer Diagnosis on the Problem List?: No Quality: Stroke Does the patient have a stroke diagnosis?: No Physical Exam Vital Signs: Vital Signs: Last Vital Signs Temp 97.1 F 08/09/22 07:33 Pulse 80 08/09/22 07:33 Resp 16 08/09/22 10:49 BP 103/59 L 08/09/22 07:33 Pulse Ox 98 08/09/22 07:33 O2 Del Method Room Air 08/09/22 07:33 BMI result Body Mass Index 39.2 Appearing in no acute distress head is normocephalic atraumatic eyes pupils are PERRLA sclera is anicteric mouth throat mucous membranes are intact and moist neck is supple no lymphadenopathy, no JVD noted lung sounds are clear to auscultation heart regular rate rhythm, clear S1, S2 positive bowel sounds, abdomen is soft, nontender neuro patient is alert x3, no focal deficits DS: Data Data Completed and Pending Completed studies during hospitalization [Text1]: Procedures Drainage of Left Foot Skin, External Approach (04/08/21) Labs on day of discharge: Laboratory Results - last 24 hr 08/08/22 08/08/22 08/09/22 16:18 20:02 07:37 Creatinine Estim Creat Clear Calc Estimated GFR POC Glucose 193 H 226 H 240 H Random Vancomycin 08/09/22 08/09/22 07:58 07:58 Creatinine 0.66 Estim Creat Clear Calc 151.7 Estimated GFR > 60 POC Glucose Random Vancomycin 6.1 L Preliminary micro results at discharge 08/07/22 19:29 Blood Culture - Preliminary Blood - Venous No growth after 24 hours. 08/07/22 15:20 Blood Culture - Preliminary Blood - Venous No growth after 24 hours. Discharge Plan Discharge Anticipated Discharge Date/Time: 08/09/22 13:36 Patient Disposition: Home, Self-Care Discharge Diagnosis: Diabetic foot wound Referrals: Ashley Kebede MD [Primary Care Provider] - 1 Week Discharge Medications: New doxycycline hyclate 100 mg tablet 100 mg PO BID Qty: 12 0RF amoxicillin-pot clavulanate 875-125 mg tablet 1 tab PO BID Qty: 12 0RF Continued omeprazole 20 mg capsule,delayed release(DR/EC) 1 cap PO DAILY PRN (Reason: Acid Reflux) albuterol sulfate 90 mcg/actuation HFA aerosol inhaler 2 puff inhalation Q4-6H PRN (Reason: respiratory symptoms) fluticasone propionate [Flovent HFA] 110 mcg/actuation HFA aerosol inhaler 1 puff PO BID insulin glargine [Lantus Solostar U-100 Insulin] 100 unit/mL (3 mL) insulin pen 35 unit subcut BEDTIME trazodone 50 mg tablet 1 tab PO BEDTIME PRN (Reason: insomnia) albuterol sulfate 2.5 mg /3 mL (0.083 %) solution for nebulization 2.5 mg inhalation Q4H PRN (Reason: dyspnea) loperamide 2 mg capsule 4 mg PO TID PRN (Reason: diarrhea) metformin 500 mg tablet extended release 24 hr 1,000 mg PO BID melatonin 10 mg Tablet 10 mg PO BEDTIME PRN (Reason: Insomnia) Discharge Orders: Discharge Order (Routine); Ordered 08/09/22 Ordered By: Vika Grande Diet: Advance to usual diet Activity on Discharge: As tolerated Stand Alone Forms: Patient Portal Discharge page, Work/School Release Care Plan Goals: Complete resolution of symptoms Health Concerns: Diabetic foot wound Plan of Treatment: Follow-up with primary care provider as needed Take medications as prescribed May use bacitracin daily to wound in between toes, keep clean and dry using gauze to separate toes Assessment: See discharge summary
[2022-08-09 11:40] LABS: Glucose, Whole Blood 191 mg/dL (60-115)
--- NOTE | 2022-08-09 13:56 | MHC.CM.PN ---
DP: PT HAS BEEN MEDICALLY CLEARED FOR DC HOME, NO SERVICES. SPOUSE WILL TRANSPORT
--- NOTE | 2022-08-09 14:46 | PM.CNGS ---
History of Present Illness Consult details Consult date: 08/09/22 Narrative: Surgical consultation because of cellulitis involving the 2nd webspace of the left foot. This been going on several days time. Because of progressive symptoms, patient presented emergency department and was admitted for IV antibiotics and local wound care. On exam today, patient has had marked improvement of her symptoms. Chart was reviewed patient evaluated [facility] Past Medical History Medical History Asthma Diabetes GERD (gastroesophageal reflux disease) Hypertension Family History Family History Other Asthma Social History Social History Household Members: Family Household Members Other:: and sister Housing: Apartment Do you presently have visiting nurse or other home services: No Alcohol intake: current Alcohol intake frequency: holidays/special occasions only Patient Tobacco Use Status: Current everyday Tobacco user Tobacco use type: Cigarette Cigarettes Per Day: 2 Advance Directives Date on File: 04/14/21 service: No Current occupational status: employed 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 Allergies Allergy/AdvReac Type Severity Reaction Status Date / Time No Known Allergies Allergy Verified 08/07/22 14:32 Active Medications: Current Medications Acetaminophen (Acetaminophen 325 Mg Tablet) 650 mg PO Q6H PRN PRN Reason: Pain, Mild (Pain Scale 1-3) Albuterol Sulfate (Albuterol Sulfate (0.083%) 2.5 Mg/3 Ml Vial.Neb) 2.5 mg INHALE Q4H PRN PRN Reason: dyspnea Albuterol Sulfate (Albuterol Sulfate 90 Mcg 8 Gm Inhaler) 2 puff INHALE Q4H PRN PRN Reason: respiratory symptoms Dextrose (Dextrose 50 % 25 Gm/50 Ml Syringe) 25 gm IVPUSH Q15M PRN; Protocol PRN Reason: per Hypoglycemia Standing Ord. Enoxaparin Sodium (Enoxaparin Sodium 40 Mg/0.4 Ml Syringe) 40 mg SUBCUT Q24H [facility] Last Admin: 08/08/22 20:19 Dose: 40 mg Glucose (Glucose Gel 15 Gm Gel..Gram.) 15 gm PO Q15M PRN; Protocol PRN Reason: per Hypoglycemia Standing Ord. Piperacillin Sod/Tazobactam (Sod 4.5 gm/ Sodium Chloride) 100 mls @ 200 mls/hr IV Q6H [facility] Last Infusion: 08/09/22 08:38 Dose: Infused Vancomycin HCl 1,000 mg/ (Sodium Chloride) 270 mls @ 270 mls/hr IV Q8H [facility] Last Infusion: 08/09/22 11:59 Dose: Infused Insulin Glargine (Insulin Glargine,Hum.Rec.Anlog 100 Unit/Ml 10 Ml Vial) 28 unit SUBCUT BEDTIME [facility] Last Admin: 08/08/22 21:30 Dose: 28 unit Insulin Human Lispro (Insulin Lispro 100 Unit/Ml 3 Ml Vial) 0 unit SUBCUT QIDACHS [facility]; Protocol Last Admin: 08/09/22 11:59 Dose: 2 unit Loperamide HCl (Loperamide Hcl 2 Mg Capsule) 4 mg PO TID PRN PRN Reason: diarrhea Melatonin (Melatonin 3 Mg Tablet) 6 mg PO BEDTIME PRN PRN Reason: Insomnia Melatonin (Melatonin 3 Mg Tablet) 9 mg PO BEDTIME PRN PRN Reason: Insomnia Morphine Sulfate (Morphine Sulfate 2 Mg/Ml Cartridge) 2 mg IVPUSH Q6H PRN; Protocol PRN Reason: Pain, Severe (Pain Scale 7-10) Last Admin: 08/09/22 10:49 Dose: 2 mg Omeprazole (Omeprazole 20 Mg Capsule.Dr) 20 mg PO DAILY PRN PRN Reason: Acid Reflux Ondansetron HCl (Ondansetron Hcl 4 Mg/2 Ml Vial) 4 mg IVPUSH Q8H PRN PRN Reason: Nausea and Vomiting Pharmacy Consult (Consult Rx Perform Med Rec) 1 each MISCELLANE ONCE PRN PRN Reason: Consult order Pharmacy Consult (Consult Rx Vancomycin Dosing) 1 each MISCELLANE DAILY PRN PRN Reason: Consult order Sodium Chloride (0.9 % Sodium Chloride Flush 3 Ml Syringe) 3 ml IVFLUSH QSHIFT [facility] Last Admin: 08/09/22 08:08 Dose: 3 ml Trazodone HCl (Trazodone Hcl 50 Mg Tablet) 50 mg PO BEDTIME PRN PRN Reason: insomnia Home Medications Medication Instructions Recorded Confirmed Last Taken Type albuterol sulfate 90 mcg/actuation 2 puff inhalation Q4-6H PRN 09/15/20 08/07/22 Unknown History aerosol inhaler respiratory symptoms fluticasone propionate 110 1 puff PO BID 09/15/20 08/07/22 08/07/22 09:00 History mcg/actuation HFA aerosol inhaler (Flovent HFA) insulin glargine 100 unit/mL (3 35 unit subcut BEDTIME 09/15/20 08/07/22 08/07/22 09:00 History mL) subcutaneous pen (Lantus Solostar U-100 Insulin) omeprazole 20 mg capsule,delayed 1 cap PO DAILY PRN Acid Reflux 09/15/20 08/07/22 Unknown History release trazodone 50 mg tablet 1 tab PO BEDTIME PRN insomnia 04/08/21 08/07/22 Unknown History albuterol sulfate 2.5 mg/3 mL 2.5 mg inhalation Q4H PRN dyspnea 08/07/22 08/07/22 Unknown History (0.083 %) solution for nebulization loperamide 2 mg capsule 4 mg PO TID PRN diarrhea 08/07/22 08/07/22 Unknown History melatonin 10 mg tablet 10 mg PO BEDTIME PRN Insomnia 08/07/22 08/07/22 Unknown History metformin 500 mg tablet,extended 1,000 mg PO BID 08/07/22 08/07/22 08/07/22 09:00 History release 24 hr Physical Exam Vital Signs: Vital Signs: Last Vital Signs Temp 97.1 F 08/09/22 07:33 Pulse 80 08/09/22 07:33 Resp 16 08/09/22 10:49 BP 103/59 L 08/09/22 07:33 Pulse Ox 98 08/09/22 07:33 O2 Del Method Room Air 08/09/22 07:33 BMI result Body Mass Index 39.2 Extrem: Other: Although somewhat of a corpulent lower extremity, I think there were palpable pedal pulses. There has been resolution of the 2nd webspace cellulitis according to the patient. There is minimal tenderness to the area. No evidence of fluctuance. Results Labs 08/08/22 06:07 08/09/22 07:58 Labs: Abnormal lab results 08/08/22 08/08/22 08/09/22 Range/Units 16:18 20:02 07:37 POC Glucose 193 H 226 H 240 H (60-115) mg/dL Random Vancomycin (15-20) mcg/mL 08/09/22 08/09/22 Range/Units 07:58 11:37 POC Glucose 191 H (60-115) mg/dL Random Vancomycin 6.1 L (15-20) mcg/mL [facility] 08/09/22 07:58 Creatinine 0.66 All other labs normal. Assessment and Plan (1) Diabetic infection of left foot: Status: Acute Plan Patient wishes to be discharged home. I reviewed with the patient and her who also served as an supervisor electric that because of her diabetes, she needs to have more conscious awareness of her foot care. She should not walk barefoot, she should not wear ill-fitting shoes, she should be very careful in regarding her toenails, etc.. Patient wishes to be discharged home. I discussed the case the case with the patient's covering hospitalist and she will follow-up with her medical doctor as an outpatient with oral antibiotics given. Time Spent With Patient Time: Total time managing care of this patient today ____ minutes. Procedures Date of Service Date of Service: 08/09/22
== END 2022-08-09 14:47 | disposition home or self-care (01) | DRG 720 ==
LOC: HO.ED 21:48 → HO.EDOVER 21:56 → HO.IMC 23:29
PROVIDERS: Physician Assistant Medical; Admitting Provider Student in an Organized Health Care Education/Training Program; Emergency Provider Internal Medicine; PCP Family Medicine; Visit Provider Nurse Practitioner Acute Care
DX: A41.9 Sepsis, unspecified organism (principal); E11.621 Type 2 diabetes mellitus with foot ulcer; L97.529 Non-pressure chronic ulcer of other part of left foot with unspecified severity; L03.115 Cellulitis of right lower limb; J45.909 Unspecified asthma, uncomplicated; E11.65 Type 2 diabetes mellitus with hyperglycemia; F17.210 Nicotine dependence, cigarettes, uncomplicated; F39 Unspecified mood [affective] disorder; K21.9 Gastro-esophageal reflux disease without esophagitis; I10 Essential (primary) hypertension; Z71.6 Tobacco abuse counseling; Z79.4 Long term (current) use of insulin; Z79.51 Long term (current) use of inhaled steroids; Z79.84 Long term (current) use of oral hypoglycemic drugs; Z79.899 Other long term (current) drug therapy
CPT/HCPCS: 36415; 73620; 80048; 80053; 80202; 82565; 82947; 83605; 83735; 85025; 85652; 86140; 87040; 94640; 99222; 99283; J1650; J2270; J2543; J3370; J3371

== ENCOUNTER 2023-02-17 15:49 | Outpatient (REF) | payer MEDICAID, SELFPAY ==
--- NOTE | ~2023-02-17 | XR_ITS ---
EXAMINATION: XR BILATERAL ANKLES CLINICAL INFORMATION: Bilateral ankle pain for 5 days, unable to recall trauma. COMPARISON: 08/07/2022, 08/05/2022, 04/09/2021, left ankle 03/02/2011. TECHNIQUE: AP, lateral, and oblique views of the bilateral ankles. FINDINGS: LEFT ANKLE: Transverse screw in the distal portion of the tibia status post removal of proximal end. Incomplete imaging of orthopedic plate and screws transfixing mid to distal fibula. Corticated ossicle inferior to the medial malleolus redemonstrated. Soft tissue swelling at the ankle. RIGHT ANKLE: Ankle joint effusion with soft tissue swelling. Alignment is preserved. No acute displaced fracture. XR/XR ankle LT min 3V IMPRESSION: LEFT ANKLE: Transverse screw through the distal portion of the tibia status post removal of proximal end. Incomplete imaging of orthopedic plate and screws transfixing mid to distal fibula. RIGHT ANKLE: Ankle joint effusion with soft tissue swelling. MRI is recommended if there is clinical concern for osteomyelitis, fracture or other pathology.
--- NOTE | ~2023-02-17 | XR_ITS ---
EXAMINATION: XR BILATERAL ANKLES CLINICAL INFORMATION: Bilateral ankle pain for 5 days, unable to recall trauma. COMPARISON: 08/07/2022, 08/05/2022, 04/09/2021, left ankle 03/02/2011. TECHNIQUE: AP, lateral, and oblique views of the bilateral ankles. FINDINGS: LEFT ANKLE: Transverse screw in the distal portion of the tibia status post removal of proximal end. Incomplete imaging of orthopedic plate and screws transfixing mid to distal fibula. Corticated ossicle inferior to the medial malleolus redemonstrated. Soft tissue swelling at the ankle. RIGHT ANKLE: Ankle joint effusion with soft tissue swelling. Alignment is preserved. No acute displaced fracture. XR/XR ankle RT min 3V IMPRESSION: LEFT ANKLE: Transverse screw through the distal portion of the tibia status post removal of proximal end. Incomplete imaging of orthopedic plate and screws transfixing mid to distal fibula. RIGHT ANKLE: Ankle joint effusion with soft tissue swelling. MRI is recommended if there is clinical concern for osteomyelitis, fracture or other pathology.
== END 2023-02-17 15:50 | disposition home or self-care (01) ==
LOC: HO.HHCL 15:49
PROVIDERS: Visit Provider Internal Medicine
DX: M25.571 Pain in right ankle and joints of right foot (principal); M25.572 Pain in left ankle and joints of left foot
CPT/HCPCS: 36415; 73610; 84550; 85025; 85652; 86140

== ENCOUNTER 2023-03-26 15:04 | Outpatient (AMB) | payer MEDICAID, SELFPAY ==
--- NOTE | 2023-03-26 15:07 | A.OFFVIS_ITS ---
Intake Vital Signs 03/26/23 15:08 Height 5 ft 7 in Weight 242 lb 15.19 oz BMI 38.0 BP 122/66 Blood Pressure Location Rt brachial Position Sitting Pulse 95 Pulse Source Pulse Oximeter Temp 96.6 F L Temp Source Skin Pulse Oximetry (%) 98 Oxygen Delivery Method Room Air Intake Visit Reasons: acute bilateral ankle pain Intake Note: New pt presents today for bl ankle pain. Pain started approx 1 month ago, out of nowhere. Pain is bl legs and ankles. Works at [employer] and walks a lot, pain is all the time. She is depressed because of pain affecting mood and ADL's S/P left knee surgery after a fall approx 12 years ago. 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 Mack 37 yoF, presents for evaluation of bilateral ankle pain and swelling on referral from PCP. She has been having ankle pain and swelling for over two months. She has a history of T2 insulin dependent diabetes, asthma, and GERD. The patient has been seen in the ER for unrelated non-healing wounds in 2022. She has plates and screws to the left foot due to past trauma. She has been taking celebrex which she does not find effective. She works at [employer] and is on her feet most of the time she is at work. She is asking for stronger pain management because she is unable to walk due to the pain. [facility] Medical History (Updated 03/29/23 @ 18:10 by GALLITO Alejandra-) Fixation hardware in foot Leukocytosis Polycythemia Osteomyelitis of ankle Swelling of both ankles GERD (gastroesophageal reflux disease) Hypertension Diabetes Asthma Surgical History (Updated 03/26/23 @ 15:14 by BABITA Ruiz) H/O left knee surgery Family History Other Asthma Social History (Updated 03/26/23 @ 15:14 by BABITA Ruiz) Household Members: Family Household Members Other:: and sister Housing: Apartment Do you presently have visiting nurse or other home services: No Alcohol intake: current Alcohol intake frequency: holidays/special occasions only Patient Tobacco Use Status: Current everyday Tobacco user Tobacco use type: Cigarette Cigarettes Per Day: 2 Advance Directives Date on File: 04/14/21 service: No Current occupational status: employed 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 External ear normal NOSE/SINUS:? Airflow through both nares, no nasal discharge, no bleeding EXTREMITIES:?no calf tenderness, normal peripheral pulses. NEURO:? Oriented and alert x3.? No focal weakness.? Antalgic Gait SKIN:? There are no skin lesions evident. No objective signs of Raynaud's phenomenon. JOINT EXAM: Ankles:.?Bilateral Ankles: Swelling and stiffness, warmth and redness right greater than left. Pes planus R>L. No open wound. Appearance of cellulitis to right lateral ankle. Antalgic gait Severe tenderness, swelling, increased warmth or erythema. Feet:.? Limited range of motion with tenderness, swelling, increased warmth or erythema. Results Reviewed Results Reviewed: Laboratory Tests 02/17/23 15:52 WBC 11.1 H RBC 5.68 H D Hgb 16.2 H D Hct 48.0 H ESR 23 H Uric Acid 5.5 C-Reactive Protein 1.51 H Assessment & Plan Assessment & Plan (1) Osteomyelitis of ankle: Code(s): M86.9 - Osteomyelitis, unspecified Qualifiers: Osteomyelitis type: other chronic Laterality: right Qualified Code(s): M86.671 - Other chronic osteomyelitis, right ankle and foot (2) Swelling of both ankles: Code(s): M25.471 - Effusion, right ankle; M25.472 - Effusion, left ankle (3) Polycythemia: Code(s): D75.1 - Secondary polycythemia (4) Leukocytosis: Code(s): D72.829 - Elevated white blood cell count, unspecified Qualifiers: Leukocytosis type: unspecified Qualified Code(s): D72.829 - Elevated white blood cell count, unspecified Plan #Bilateral Ankle swelling: I think the patient would benefit more from an Ortho evaluation which may have been the intent as this was noted in the PCP notes vs an rheumatology referral. It appears there is possible cellulitis and we we certainly want to be sure that there is no onset of osteomyelitis. Per ER records, she has a history of foot wound (without known trauma or injury) and treated with antibitotics in 2021 and 2022. The patient was destraught as I try to explain to her that there is not much that I can do for her at this visit that would properly serve her feet. Her was there to help translate. I tried to convince her to go to the ER as she might need antibiotics and best to determine quicker that there is no infectious process. Additionally, I contacted our Ortho department but it was not possible to see her at that time. I gave her a note to be excused from work for a week to allow her to attend to her feet. I understand she is in pain, but her best benefit would be to get immediate Ortho attention in the ER. I will also put in an ortho referral. #Chronic elevated WBC and RBC, ESR/CRP Patient can call the office if it is determined that there is no infectious process and Ortho has evaluated. I spent 60 minutes reviewing history, evaluating patient, answering questions, making phone calls and documenting Orders: Referrals Orthopedics Referral M25.471 - Effusion, right ankle, M25.472 - Effusion, left ankle, M86.9 - Osteomyelitis, unspecified, Z96.7 - Presence of other bone and tendon implants Coding Level of Care Code New Pt Level 5 (72450) Diagnoses Other chronic osteomyelitis of right ankle M86.671 Osteomyelitis type: other chronic Laterality: right Swelling of both ankles M25.471; M25.472 Polycythemia D75.1 Leukocytosis, unspecified type D72.829 Leukocytosis type: unspecified
[2023-03-26 15:08] VITALS: BP 122/66; PULSE 95; TEMP 35.9; O2SAT 98; BMI 38.0
== END 2023-03-26 16:15 | disposition home or self-care (01) ==
PROVIDERS: PCP Family Medicine; Visit Provider Nurse Practitioner Family
DX: M86.671 Other chronic osteomyelitis, right ankle and foot (principal); M25.471 Effusion, right ankle; M25.472 Effusion, left ankle; D75.1 Secondary polycythemia; D72.829 Elevated white blood cell count, unspecified
CPT/HCPCS: 99205

== ENCOUNTER → 2023-03-26 15:04 | Outpatient (BNVA) | payer MEDICAID, SELFPAY | PROVIDERS: PCP Family Medicine; Visit Provider Nurse Practitioner Family | DX: M86.671 Other chronic osteomyelitis, right ankle and foot (principal); M25.471 Effusion, right ankle; M25.472 Effusion, left ankle; D75.1 Secondary polycythemia; D72.829 Elevated white blood cell count, unspecified | CPT/HCPCS: 99212 ==

== ENCOUNTER 2023-04-01 16:53 | Emergency (ER) | payer MEDICAID, SELFPAY ==
[2023-04-01 18:45] VITALS: BP 139/85; PULSE 99; RESP 16; TEMP 36.6; O2SAT 96; BMI 37.6
--- NOTE | 2023-04-01 18:46 | ED_ITS ---
HPI - General Adult General Chief complaint: Extremity Problem Stated complaint: infection in both legs Related Data Home Medications Medication Instructions Recorded Confirmed albuterol sulfate 90 mcg/actuation 2 puff inhalation Q4-6H PRN 09/15/20 08/07/22 aerosol inhaler respiratory symptoms fluticasone propionate 110 1 puff PO BID 09/15/20 08/07/22 mcg/actuation HFA aerosol inhaler (Flovent HFA) insulin glargine 100 unit/mL (3 35 unit subcut BEDTIME 09/15/20 08/07/22 mL) subcutaneous pen (Lantus Solostar U-100 Insulin) omeprazole 20 mg capsule,delayed 1 cap PO DAILY PRN Acid Reflux 09/15/20 08/07/22 release trazodone 50 mg tablet 1 tab PO BEDTIME PRN insomnia 04/08/21 08/07/22 albuterol sulfate 2.5 mg/3 mL 2.5 mg inhalation Q4H PRN dyspnea 08/07/22 08/07/22 (0.083 %) solution for nebulization loperamide 2 mg capsule 4 mg PO TID PRN diarrhea 08/07/22 08/07/22 melatonin 10 mg tablet 10 mg PO BEDTIME PRN Insomnia 08/07/22 08/07/22 metformin 500 mg tablet,extended 1,000 mg PO BID 08/07/22 08/07/22 release 24 hr celecoxib 200 mg capsule 200 mg PO BID 03/26/23 Allergies Allergy/AdvReac Type Severity Reaction Status Date / Time No Known Allergies Allergy Verified 04/01/23 18:45 [facility] Past Medical History Medical History (Updated 04/02/23 @ 16:07 by Ketty Ricks NP) Fixation hardware in foot Leukocytosis Polycythemia Osteomyelitis of ankle Swelling of both ankles GERD (gastroesophageal reflux disease) Hypertension Diabetes Asthma Surgical History (Updated 03/26/23 @ 15:14 by BABITA Ruiz) H/O left knee surgery Family History Family History Other Asthma Social History Social History (Updated 03/26/23 @ 15:14 by BABITA Ruiz) Household Members: Family Household Members Other:: and sister Housing: Apartment Do you presently have visiting nurse or other home services: No Alcohol intake: current Alcohol intake frequency: holidays/special occasions only Patient Tobacco Use Status: Current everyday Tobacco user Tobacco use type: Cigarette Cigarettes Per Day: 2 Advance Directives: Yes Advance Directives on File: Yes Advance Directives Date on File: 04/14/21 service: No Current occupational status: employed 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 Patient is a 37-year-old Hebrew speaking female with history of T2DM, prior infections/osteomyelitis of ankle/foot presenting to the emergency department with complaint of bilateral foot pain. States PCP referred her here on 03/26 to rule out infection/osteo. Denies fevers. Swelling noted to R medial ankle, no erythema or warmth. Plan: labs Medical Decision Making Lab Data 04/01/23 21:26 04/01/23 21:26 Labs: Lab Results 04/01/23 Range/Units 21:26 WBC 12.4 H (4.8-10.8) X10*3/uL RBC 5.77 H (4.20-5.50) X10*6/uL Hgb 16.4 H (12.0-16.0) g/dl Hct 48.1 H (37.0-47.0) % MCV 83.4 (80.0-98.0) fL MCH 28.4 (27.0-33.0) pg MCHC 34.1 (31.0-35.0) g/dl RDW 12.8 (11.0-16.0) % Plt Count 374 (160-400) X10*3/uL MPV 10.4 (9.4-12.3) fL Immature Gran % (Auto) 0.3 (0.0-0.4) % Neut % (Auto) 55.5 (45-73) % Lymph % (Auto) 34.4 (20-40) % Granite % (Auto) 7.3 (2-11) % Eos % (Auto) 1.9 (0-4) % Baso % (Auto) 0.6 (0-2) % Lymph # (Auto) 4.3 (1.2-4.9) X10*3/uL Granite # (Auto) 0.9 (0.1-1.2) X10*3/uL Eos # (Auto) 0.2 (0.0-0.4) X10*3/uL Baso # (Auto) 0.1 (0.0-0.2) X10*3/uL Abs Immat Gran (auto) 0.04 H (0.00-0.03) X10*3/uL Absolute Neuts (auto) 6.9 (2.0-8.3) x10*3/uL Absolute Nucleated RBC 0.000 (0.0-0.012) X10*3/uL Nucleated RBC % (auto) 0.0 (0.0-0.2) /100WBC ESR 22 H (0-20) MM/HR Sodium 133 L (135-145) mmol/L Potassium 4.7 (3.3-5.1) mmol/L Chloride 97 (96-108) mmol/L Carbon Dioxide 26 (22-29) mmol/L Anion Gap 15 (12-20) BUN 10 (9-16) mg/dL Creatinine 0.82 (0.5-1.4) mg/dL Estim Creat Clear Calc 119.3 Estimated GFR > 60 Random Glucose 378 H* (60-115) mg/dL Calcium 10.6 H D (8.4-10.2) mg/dL Total Bilirubin 0.3 (0.0-1.0) mg/dL AST 84 H (5-31) U/L ALT 151 H (0-31) U/L Alkaline Phosphatase 146 H (39-117) U/L C-Reactive Protein 1.63 H (< or = 0.50) mg/dL B-Natriuretic Peptide < 10 (<100) pg/mL Total Protein 8.4 H (6.5-8.0) g/dL Albumin 4.3 (3.5-5.0) g/dL Discharge Plan Discharge Clinical Impression: Foot pain Patient Disposition: Left W/O Completing Treatment Prescriptions: No Action omeprazole 20 mg capsule,delayed release(DR/EC) 1 cap PO DAILY PRN (Reason: Acid Reflux) albuterol sulfate 90 mcg/actuation HFA aerosol inhaler 2 puff inhalation Q4-6H PRN (Reason: respiratory symptoms) fluticasone propionate [Flovent HFA] 110 mcg/actuation HFA aerosol inhaler 1 puff PO BID insulin glargine [Lantus Solostar U-100 Insulin] 100 unit/mL (3 mL) insulin pen 35 unit subcut BEDTIME trazodone 50 mg tablet 1 tab PO BEDTIME PRN (Reason: insomnia) albuterol sulfate 2.5 mg /3 mL (0.083 %) solution for nebulization 2.5 mg inhalation Q4H PRN (Reason: dyspnea) loperamide 2 mg capsule 4 mg PO TID PRN (Reason: diarrhea) metformin 500 mg tablet extended release 24 hr 1,000 mg PO BID melatonin 10 mg Tablet 10 mg PO BEDTIME PRN (Reason: Insomnia) celecoxib 200 mg capsule 200 mg PO BID Discharge Date/Time: 04/02/23 00:37
--- NOTE | 2023-04-01 21:26 | MHC.EDTECH ---
Patient blood drawn and sent to lab .
[2023-04-01 21:31] LABS: MANUAL DIFF FLAG NO
[2023-04-01 21:32] LABS: Basophils Absolute Auto 0.1 X10*3/uL (0.0-0.2); Basophils Percent Auto 0.6 % (0-2); Eosinophils Absolute Auto 0.2 X10*3/uL (0.0-0.4); Eosinophils Percent Auto 1.9 % (0-4); Hematocrit 48.1 % (37.0-47.0); Hemoglobin 16.4 g/dl (12.0-16.0); Imm Gran Abs Auto 0.04 X10*3/uL (0.00-0.03); Imm Gran Pct Auto 0.3 % (0.0-0.4); Lymphocytes Absolute Auto 4.3 X10*3/uL (1.2-4.9); Lymphocytes Percent Auto 34.4 % (20-40); Mean Corpuscular HGB Conc 34.1 g/dl (31.0-35.0); Mean Corpuscular Hemoglobin 28.4 pg (27.0-33.0); Mean Corpuscular Volume 83.4 fL (80.0-98.0); Mean Platelet Volume 10.4 fL (9.4-12.3); Monocytes Absolute Auto 0.9 X10*3/uL (0.1-1.2); Monocytes Percent Auto 7.3 % (2-11); Neutrophils Absolute Auto 6.9 x10*3/uL (2.0-8.3); Neutrophils Percent Auto 55.5 % (45-73); Platelet Count 374 X10*3/uL (160-400); Red Blood Count 5.77 X10*6/uL (4.20-5.50); Red Cell Distribution Width 12.8 % (11.0-16.0); White Blood Count 12.4 X10*3/uL (4.8-10.8)
[2023-04-01 21:50] LABS: Alanine Aminotransferase 151 U/L (0-31); Albumin Level 4.3 g/dL (3.5-5.0); Alkaline Phosphatase 146 U/L (39-117); Anion Gap 15 (12-20); Aspartate Amino Transferase 84 U/L (5-31); Bilirubin Total 0.3 mg/dL (0.0-1.0); Blood Urea Nitrogen 10 mg/dL (9-16); C Reactive Protein 1.63 mg/dL (< or = 0.50); Calcium 10.6 mg/dL (8.4-10.2); Carbon Dioxide 26 mmol/L (22-29); Chloride 97 mmol/L (96-108); Creatinine Clr Calc Pharmacy 119.3; Estimated Glomerular Filt Rate > 60; Glucose Random 378 mg/dL (60-115); Potassium 4.7 mmol/L (3.3-5.1); Sodium 133 mmol/L (135-145); Total Protein 8.4 g/dL (6.5-8.0)
[2023-04-01 21:51] LABS: B Type Natriuretic Peptide < 10 pg/mL (<100)
[2023-04-01 22:21] LABS: Erythrocyte Sedimentation Rate 22 MM/HR (0-20)
--- NOTE | 2023-04-02 00:36 | PC.NURSE ---
Pt called in WR with no answer multiple times
== END 2023-04-02 00:37 | disposition left against medical advice (07) ==
PROVIDERS: Registered Nurse Emergency; Emergency Provider Emergency Medicine; PCP Family Medicine
DX: M79.671 Pain in right foot (principal); M79.672 Pain in left foot; Z79.899 Other long term (current) drug therapy
CPT/HCPCS: 36415; 80053; 83880; 85025; 85652; 86140; 99281; 99283

== ENCOUNTER 2023-04-23 13:24 | Outpatient (AMB) | payer MEDICAID, SELFPAY ==
--- NOTE | 2023-04-23 13:26 | MHC.OFFVIS ---
Intake Vital Signs 04/23/23 13:34 Height 5 ft 7 in Weight 244 lb 14.937 oz BMI 38.4 BP 110/60 Blood Pressure Location Lt radial Position Sitting Pulse 107 H Pulse Source Pulse Oximeter Temp 97 F Temp Source Skin Pulse Oximetry (%) 97 Oxygen Delivery Method Room Air Intake Visit Reasons: Ankle Pain Intake Note: Patient last seen 03/26/23 by Kev, presents today for follow up. Reports on going leg pain. 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 Mack 37 yoF, presents for return for evaluation of bilateral ankle pain and swelling. She was not seen at the ER after long wait. Since last visit, she has stopped working. Her PCP gave her a podiatry referral and the appointment is June 09. PCP had started her on Gabapentin 300 mg QD whihc she says is not effective. She continues to have challenges with walking and ADLs. Initial History 03/26/2023: Ms. Mack 37 yoF, presents for evaluation of bilateral ankle pain and swelling on referral from PCP. She has been having ankle pain and swelling for over two months. She has a history of T2 insulin dependent diabetes, asthma, and GERD. The patient has been seen in the ER for unrelated non-healing wounds in 2022. She has plates and screws to the left foot due to past trauma. She has been taking celebrex which she does not find effective. She works at [employer] and is on her feet most of the time she is at work. She is asking for stronger pain management because she is unable to walk due to the pain. Initial Assessemnt: #Bilateral Ankle swelling: I think the patient would benefit more from an Ortho evaluation which may have been the intent as this was noted in the PCP notes vs an rheumatology referral. It appears there is possible cellulitis and we we certainly want to be sure that there is no onset of osteomyelitis. Per ER records, she has a history of foot wound (without known trauma or injury) and treated with antibitotics in 2021 and 2022. The patient was destraught as I try to explain to her that there is not much that I can do for her at this visit that would properly serve her feet. Her was there to help translate. I tried to convince her to go to the ER as she might need antibiotics and best to determine quicker that there is no infectious process. Additionally, I contacted our Ortho department but it was not possible to see her at that time. I gave her a note to be excused from work for a week to allow her to attend to her feet. I understand she is in pain, but her best benefit would be to get immediate Ortho attention in the ER. I will also put in an ortho referral. #Chronic elevated WBC and RBC, ESR/CRP [facility] Medical History (Updated 04/23/23 @ 13:48 by GALLITO Alejandra-PRISCILA) Elevated sed rate Bilateral ankle joint pain Fixation hardware in foot Leukocytosis Polycythemia Osteomyelitis of ankle Swelling of both ankles GERD (gastroesophageal reflux disease) Hypertension Diabetes Asthma Surgical History H/O left knee surgery Family History Other Asthma Social History Household Members: Family Household Members Other:: and sister Housing: Apartment Do you presently have visiting nurse or other home services: No Alcohol intake: current Alcohol intake frequency: holidays/special occasions only Patient Tobacco Use Status: Current everyday Tobacco user Tobacco use type: Cigarette Cigarettes Per Day: 2 Advance Directives Date on File: 04/14/21 service: No Current occupational status: employed 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 External ear normal NOSE/SINUS:? Airflow through both nares, no nasal discharge, no bleeding EXTREMITIES:?no calf tenderness, normal peripheral pulses. NEURO:? Oriented and alert x3.? No focal weakness.? Antalgic Gait SKIN:? There are no skin lesions evident. No objective signs of Raynaud's phenomenon. JOINT EXAM: Ankles:.?Bilateral Ankles: Swelling and stiffness, warmth and redness right greater than left. Pes planus R>L. No open wound. Appearance of cellulitis to right lateral ankle. Antalgic gait Severe tenderness, swelling, increased warmth or erythema. Feet:.? Limited range of motion with tenderness, swelling, increased warmth or erythema. Assessment & Plan Assessment & Plan (1) Osteomyelitis of ankle: Code(s): M86.9 - Osteomyelitis, unspecified Qualifiers: Osteomyelitis type: other chronic Laterality: right Qualified Code(s): M86.671 - Other chronic osteomyelitis, right ankle and foot (2) Swelling of both ankles: Code(s): M25.471 - Effusion, right ankle; M25.472 - Effusion, left ankle (3) Polycythemia: Code(s): D75.1 - Secondary polycythemia (4) Leukocytosis: Code(s): D72.829 - Elevated white blood cell count, unspecified Qualifiers: Leukocytosis type: unspecified Qualified Code(s): D72.829 - Elevated white blood cell count, unspecified (5) Bilateral ankle joint pain: Code(s): M25.571 - Pain in right ankle and joints of right foot; M25.572 - Pain in left ankle and joints of left foot Plan The patient continues to be in pain. Her ankle remains the same as at first visit - swollen and severely tender. One wonders if Charcot-Gina Tooth is present given her history of T2DM. I will give her some Tramadol to day to help until her visit with Podiatry. I will also order labs for the Rheum workup. I spent 35 minutes reviewing history, evaluating patient, answering questions, and documenting Orders: Orders Anti Extractable Nuclear Ag Today M25.471 - Effusion, right ankle, M25.472 - Effusion, left ankle, M25.571 - Pain in right ankle and joints of right foot, M25.572 - Pain in left ankle and joints of left foot, R70.0 - Elevated erythrocyte sedimentation rate Complement C3 Today M25.471 - Effusion, right ankle, M25.472 - Effusion, left ankle, M25.571 - Pain in right ankle and joints of right foot, M25.572 - Pain in left ankle and joints of left foot, R70.0 - Elevated erythrocyte sedimentation rate Complement C4 Today M25.471 - Effusion, right ankle, M25.472 - Effusion, left ankle, M25.571 - Pain in right ankle and joints of right foot, M25.572 - Pain in left ankle and joints of left foot, R70.0 - Elevated erythrocyte sedimentation rate C Reactive Protein Today M25.471 - Effusion, right ankle, M25.472 - Effusion, left ankle, M25.571 - Pain in right ankle and joints of right foot, M25.572 - Pain in left ankle and joints of left foot, R70.0 - Elevated erythrocyte sedimentation rate Immunoglobulins,IgG IgA IgM Today M25.471 - Effusion, right ankle, M25.472 - Effusion, left ankle, M25.571 - Pain in right ankle and joints of right foot, M25.572 - Pain in left ankle and joints of left foot, R70.0 - Elevated erythrocyte sedimentation rate Uric Acid Today M25.471 - Effusion, right ankle, M25.472 - Effusion, left ankle, M25.571 - Pain in right ankle and joints of right foot, M25.572 - Pain in left ankle and joints of left foot, R70.0 - Elevated erythrocyte sedimentation rate Hepatitis A,B,C Profile Today M25.471 - Effusion, right ankle, M25.472 - Effusion, left ankle, M25.571 - Pain in right ankle and joints of right foot, M25.572 - Pain in left ankle and joints of left foot, R70.0 - Elevated erythrocyte sedimentation rate Vitamin D 1,25 dihydroxy Today M25.471 - Effusion, right ankle, M25.472 - Effusion, left ankle, M25.571 - Pain in right ankle and joints of right foot, M25.572 - Pain in left ankle and joints of left foot, R70.0 - Elevated erythrocyte sedimentation rate JOSE Reflex Titer and Pattern Today M25.471 - Effusion, right ankle, M25.472 - Effusion, left ankle, M25.571 - Pain in right ankle and joints of right foot, M25.572 - Pain in left ankle and joints of left foot, R70.0 - Elevated erythrocyte sedimentation rate Anti DNA DS Antibody Today M25.471 - Effusion, right ankle, M25.472 - Effusion, left ankle, M25.571 - Pain in right ankle and joints of right foot, M25.572 - Pain in left ankle and joints of left foot, R70.0 - Elevated erythrocyte sedimentation rate Complete Blood Count Auto Diff Today M25.471 - Effusion, right ankle, M25.472 - Effusion, left ankle, M25.571 - Pain in right ankle and joints of right foot, M25.572 - Pain in left ankle and joints of left foot, R70.0 - Elevated erythrocyte sedimentation rate Comprehensive Met. Panel Today M25.471 - Effusion, right ankle, M25.472 - Effusion, left ankle, M25.571 - Pain in right ankle and joints of right foot, M25.572 - Pain in left ankle and joints of left foot, R70.0 - Elevated erythrocyte sedimentation rate Creatine Kinase Total Today M25.471 - Effusion, right ankle, M25.472 - Effusion, left ankle, M25.571 - Pain in right ankle and joints of right foot, M25.572 - Pain in left ankle and joints of left foot, R70.0 - Elevated erythrocyte sedimentation rate Erythrocyte Sedimentation Rate Today M25.471 - Effusion, right ankle, M25.472 - Effusion, left ankle, M25.571 - Pain in right ankle and joints of right foot, M25.572 - Pain in left ankle and joints of left foot, R70.0 - Elevated erythrocyte sedimentation rate Protein Electrophoresis, Serum Today M25.471 - Effusion, right ankle, M25.472 - Effusion, left ankle, M25.571 - Pain in right ankle and joints of right foot, M25.572 - Pain in left ankle and joints of left foot, R70.0 - Elevated erythrocyte sedimentation rate T Spot TB Today M25.471 - Effusion, right ankle, M25.472 - Effusion, left ankle, M25.571 - Pain in right ankle and joints of right foot, M25.572 - Pain in left ankle and joints of left foot, R70.0 - Elevated erythrocyte sedimentation rate Medications: New tramadol 50 mg PO BID 60 tabs 1RF pain M25.471 - Effusion, right ankle, M25.472 - Effusion, left ankle, M25.571 - Pain in right ankle and joints of right foot, M25.572 - Pain in left ankle and joints of left foot Coding Level of Care Code Est Pt Level 4 (56767) Diagnoses Other chronic osteomyelitis of right ankle M86.671 Osteomyelitis type: other chronic Laterality: right Swelling of both ankles M25.471; M25.472 Polycythemia D75.1 Leukocytosis, unspecified type D72.829 Leukocytosis type: unspecified Bilateral ankle joint pain M25.571; M25.572
[2023-04-23 13:34] VITALS: BP 110/60; PULSE 107; TEMP 36.1; O2SAT 97; BMI 38.4
== END 2023-04-23 13:55 | disposition home or self-care (01) ==
PROVIDERS: PCP Family Medicine; Visit Provider Nurse Practitioner Family
DX: M86.671 Other chronic osteomyelitis, right ankle and foot (principal); M25.471 Effusion, right ankle; M25.472 Effusion, left ankle; D75.1 Secondary polycythemia; D72.829 Elevated white blood cell count, unspecified; M25.571 Pain in right ankle and joints of right foot; M25.572 Pain in left ankle and joints of left foot
CPT/HCPCS: 99214

== ENCOUNTER → 2023-04-23 13:24 | Outpatient (BNVA) | payer MEDICAID, SELFPAY | PROVIDERS: PCP Family Medicine; Visit Provider Nurse Practitioner Family | DX: M86.671 Other chronic osteomyelitis, right ankle and foot (principal); M25.471 Effusion, right ankle; M25.472 Effusion, left ankle; M25.571 Pain in right ankle and joints of right foot; M25.572 Pain in left ankle and joints of left foot; D75.1 Secondary polycythemia; D72.829 Elevated white blood cell count, unspecified | CPT/HCPCS: 99212 ==

== ENCOUNTER 2023-05-06 08:57 | Outpatient (REF) | payer MEDICAID, SELFPAY ==
--- NOTE | 2023-05-06 09:08 | EMG_ITS ---
Bilateral tibial and peroneal motor studies were performed. Bilateral superficial peroneal and sural sensory studies were performed. Tibial H reflexes were obtained and paraspinal muscles were tested with a needle. 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 MD BRANDT Hines/MODL / [id number]
== END 2023-05-06 08:58 | disposition home or self-care (01) ==
LOC: HO.NEURO 08:57
PROVIDERS: PCP Family Medicine; Visit Provider Family Medicine
DX: M79.604 Pain in right leg (principal); M79.605 Pain in left leg; E11.42 Type 2 diabetes mellitus with diabetic polyneuropathy; E11.65 Type 2 diabetes mellitus with hyperglycemia; Z79.4 Long term (current) use of insulin
CPT/HCPCS: 95886; 95911

== ENCOUNTER 2023-05-12 17:29 | Outpatient (REF) | payer MEDICAID, SELFPAY ==
--- NOTE | ~2023-05-12 | MR_ITS ---
EXAMINATION: MR ANKLE WITHOUT CONTRAST, RIGHT MR FOOT WITHOUT CONTRAST, RIGHT CLINICAL INFORMATION: Right ankle/foot pain. Chronic pain at the medial malleolus. COMPARISON: 02/17/2023 TECHNIQUE: MRI of the ankle and right foot was performed using routine sequences on a high-field scanner. FINDINGS: RIGHT ANKLE/HINDFOOT: Achilles Tendon: Normal. Other Tendons: There is moderate tendinosis of the posterior tibial tendon with associated partial tearing of the more distal fibers 1 cm from the navicular insertion. This tear involves less than a quarter of the tendon cross-section. There is mild surrounding tenosynovitis and soft tissue edema signal. The flexor digitorum longus and flexor hallucis longus tendons appear intact without tears or tenosynovitis. Extensor and peroneal tendons are unremarkable. Ligaments: Anterior talofibular ligament is thinned and irregular, most consistent with a chronic partial tear. The calcaneofibular ligament is thickened, likely the result of an old sprain. Distal tibiofibular and posterior talofibular ligaments are intact. Deltoid ligament is normal. Edema signal is present at the superomedial band of the spring ligament, potentially due to a ligament sprain or ligamentous degeneration. No tear. Bone And Articular Cartilage: Talocrural joint appears relatively well preserved. Small marginal osteophytes and a small focus of subcortical edema are noted at the anterior margin of the posterior facet of the subtalar joint near the angle of Gissane. Subtalar joint is otherwise unremarkable. There is cortical irregularity at the margins of the os trigonum where it articulates with the posterior margin of the talus without significant marrow edema signal. Joint Fluid And Soft Tissues: No joint effusion. Subcutaneous soft tissues are normal. Plantar Fascia: Normal. Sinus Tarsi And Tarsal Tunnel: Tarsal tunnel is normal. There is narrowing of the sinus tarsi with incomplete loss of fat signal intensity. RIGHT FOREFOOT/MIDFOOT: There is minimal osteoarthritis of the 1st MTP joint with tiny marginal osteophytes and partial-thickness chondral thinning at the metatarsosesamoidal articulations. Joints otherwise appear well preserved. No erosions. No fracture or malalignment identified within the midfoot and forefoot. Marrow signal is normal. No stress reactions. Intrinsic foot musculature is unremarkable. Imaged plantar fascia is intact. Tendons appear intact without tears or tenosynovitis. No Hull's neuromas or adventitious bursae. No intermetatarsal bursitis or joint effusions. MR/MR ankle RT wo con IMPRESSION: 1. Moderate posterior tibial tendinosis with a small partial tear of the distal fibers, corresponding to the region of the patient's symptoms. 2. Edema signal in the superomedial band of the spring ligament, potentially due to a ligament sprain or ligamentous degeneration. No tears. 3. Chronic partial tear of the anterior talofibular ligament and chronic sprain of the calcaneofibular ligament. 4. Minimal osteoarthritis at the 1st MTP joint.
== END 2023-05-12 17:30 | disposition home or self-care (01) ==
LOC: HO.MRI 17:29
PROVIDERS: PCP Family Medicine; Visit Provider Family Medicine
DX: M25.572 Pain in left ankle and joints of left foot (principal); M25.571 Pain in right ankle and joints of right foot; M79.604 Pain in right leg; M79.605 Pain in left leg; M79.671 Pain in right foot; M79.672 Pain in left foot; G89.29 Other chronic pain
CPT/HCPCS: 73718; 73721

== ENCOUNTER 2023-05-21 17:27 | Outpatient (REF) | payer MEDICAID, SELFPAY ==
--- NOTE | ~2023-05-21 | MR_ITS ---
EXAMINATION: MR ANKLE WITHOUT CONTRAST, LEFT MR LOWER LEG WITHOUT CONTRAST, LEFT CLINICAL INFORMATION: Lateral lower leg/lateral malleolus pain. COMPARISON: Radiographs 03/16/2023. TECHNIQUE: MRI of the distal lower leg and left ankle was performed using routine sequences on a high-field scanner. FINDINGS: There is extensive metal artifact surrounding the plate and screws of the fibular fracture. No obvious adjacent fluid collection, muscle or tendon tear, or acute osseous abnormality in this location. Marrow signal of the distal fibula/lateral malleolus appears normal. The peroneal tendons are intact. No tenosynovitis. Ankle ligaments appear intact. There is an 8 mm osteochondral lesion of the medial talar dome with degenerative cyst formation. No significant ankle joint effusion. There is metal artifact from the retained syndesmotic screw fragment within the distal tibia. There is marrow edema of the anterior superior calcaneus, likely due to degenerative change at the junction with the talus and calcaneal sulcus. Small posterior subtalar joint effusion. Bone marrow signal is otherwise normal. The Achilles tendon, posterior tibialis tendon, flexor and extensor tendons are unremarkable. The plantar fascia is intact. MR/MR ankle LT wo con IMPRESSION: 1. No acute osseous abnormality. The distal fibular shaft is obscured by metal artifact. The lateral malleolus is unremarkable. Peroneal tendons intact. 2. There is an 8 mm osteochondral lesion of the medial talar dome with degenerative cyst formation. No significant ankle joint effusion. 3. Marrow edema of the distal/superior calcaneus is likely degenerative from the junction of the talus and calcaneal sulcus. Small posterior subtalar joint effusion.
--- NOTE | ~2023-05-21 | MR_ITS ---
EXAMINATION: MR ANKLE WITHOUT CONTRAST, LEFT MR LOWER LEG WITHOUT CONTRAST, LEFT CLINICAL INFORMATION: Lateral lower leg/lateral malleolus pain. COMPARISON: Radiographs 03/16/2023. TECHNIQUE: MRI of the distal lower leg and left ankle was performed using routine sequences on a high-field scanner. FINDINGS: There is extensive metal artifact surrounding the plate and screws of the fibular fracture. No obvious adjacent fluid collection, muscle or tendon tear, or acute osseous abnormality in this location. Marrow signal of the distal fibula/lateral malleolus appears normal. The peroneal tendons are intact. No tenosynovitis. Ankle ligaments appear intact. There is an 8 mm osteochondral lesion of the medial talar dome with degenerative cyst formation. No significant ankle joint effusion. There is metal artifact from the retained syndesmotic screw fragment within the distal tibia. There is marrow edema of the anterior superior calcaneus, likely due to degenerative change at the junction with the talus and calcaneal sulcus. Small posterior subtalar joint effusion. Bone marrow signal is otherwise normal. The Achilles tendon, posterior tibialis tendon, flexor and extensor tendons are unremarkable. The plantar fascia is intact. MR/MR lower leg LT wo con IMPRESSION: 1. No acute osseous abnormality. The distal fibular shaft is obscured by metal artifact. The lateral malleolus is unremarkable. Peroneal tendons intact. 2. There is an 8 mm osteochondral lesion of the medial talar dome with degenerative cyst formation. No significant ankle joint effusion. 3. Marrow edema of the distal/superior calcaneus is likely degenerative from the junction of the talus and calcaneal sulcus. Small posterior subtalar joint effusion.
== END 2023-05-21 17:28 | disposition home or self-care (01) ==
LOC: HO.MRI 17:27
PROVIDERS: PCP Family Medicine; Visit Provider Family Medicine
DX: M25.571 Pain in right ankle and joints of right foot (principal); M25.572 Pain in left ankle and joints of left foot; M79.604 Pain in right leg; M79.605 Pain in left leg; M79.671 Pain in right foot; G89.29 Other chronic pain; M79.672 Pain in left foot
CPT/HCPCS: 73718; 73721

== ENCOUNTER 2023-07-15 14:44 | Outpatient (AMB) | payer MEDICAID, SELFPAY ==
--- NOTE | 2023-07-15 14:49 | A.OFFVIS_ITS ---
Vital Signs 07/15/23 15:02 Height 5 ft 7 in Weight 232 lb 9.403 oz BMI 36.4 BP 130/90 H Blood Pressure Location Rt brachial Position Sitting Pulse 102 H Pulse Oximetry (%) 97 Intake Visit Reasons: Bilateral Ankle swelling/Ankle/cm Intake Note: Established patient, last seen 04/23/23, presents today for ALAN ankle pain follow up. Patient brought a form from [facility] she would like to discuss inquiring about her diagnosis. Patient lost her job at [employer] due to her sx's and having to miss work to receive care. PAULA and form uploaded to chart. Building Materials Sales Attendant Required: Yes Building Materials Sales Attendant Language: Chief Science Officer Name: Gideon [id number] Information Interpreted: clinical only Allergies No Known Allergies Allergy (Verified 07/15/23 14:49) HPI Comments Details: Ms. George 38 yoM returns with for f/u of ankle pain and swell, both. Patient has had consult with Podiatry since last visit. She reports that Podiatry explains that the ligaments in her ankles are very stretched and so the ankle is unstable and unsupported. She was given boots to wear but she has challenges wearing them outside. He ankles has improved significantly since last visit and she says it is largely because she has not been working and has been staying off her feet. --She is behind in her rent and has since lost her job because of too many absences per patient. She requires aid and has paperwork to that effect. 04/23/2023: Ms. Martina Wilks yoF, presents for return for evaluation of bilateral ankle pain and swelling. She was not seen at the ER after long wait. Since last visit, she has stopped working. Her PCP gave her a podiatry referral and the appointment is June 09. [facility] says [facility] not effective. She continues to have challenges with walking and ADLs. Initial History 03/26/2023: Ms. Martina Wilks yoF, presents for evaluation of bilateral ankle pain and swelling on referral from PCP. She has been having ankle pain and swelling for over two months. She has a history of T2 insulin dependent diabetes, asthma, and GERD. The patient has been seen in the ER for unrelated non-healing wounds in 2022. She has plates and screws to the left foot due to past trauma. She has been taking celebrex which she does not find effective. She works at [employer] and is on her feet most of the time she is at work. She is asking for stronger pain management because she is unable to walk due to the pain. Initial Assessemnt 03/26/2023: #Bilateral Ankle swelling: I think the patient would benefit more from an Ortho evaluation which may have been the intent as this was noted in the PCP notes vs an rheumatology referral. It appears there is possible cellulitis and we certainly want to be sure that there is no onset of osteomyelitis. Per ER records, she has a history of foot wound (without known trauma or injury) and treated with antibitotics in 2021 and 2022. The patient was destraught as I try to explain to her that there is not much that I can do for her at this visit that would properly serve her feet. Her was there to help translate. I tried to convince her to go to the ER as she might need antibiotics and best to determine quicker that there is no infectious process. Additionally, I contacted our Ortho department but it was not possible to see her at that time. I gave her a note to be excused from work for a week to allow her to attend to her feet. I understand she is in pain, but her best benefit would be to get immediate Ortho attention in the ER. I will also put in an ortho referral. #Chronic elevated WBC and RBC, ESR/CRP [facility] Medical History (Updated 04/23/23 @ 13:48 by Mechelle Angulo [facility]) Elevated sed rate Bilateral ankle joint pain Fixation hardware in foot Leukocytosis Polycythemia Osteomyelitis of ankle Swelling of both ankles GERD (gastroesophageal reflux disease) Hypertension Diabetes Asthma Surgical History H/O left knee surgery Family History Other Asthma Social History Household Members: Family Household Members Other:: and sister Housing: Apartment Do you presently have visiting nurse or other home services: No Alcohol intake: current Alcohol intake frequency: holidays/special occasions only Patient Tobacco Use Status: Current everyday Tobacco user Tobacco use type: Cigarette Cigarettes Per Day: 2 Advance Directives Date on File: 04/14/21 service: No Current occupational status: employed 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 External ear normal EXTREMITIES:?no calf tenderness, normal peripheral pulses. NEURO:? Oriented and alert x3.? No focal weakness.? Antalgic Gait JOINT EXAM: Ankles:.?Bilateral Ankles: trace swelling and tenderness. Pes planus and pronation R>L. No open wound. mild to moderate tenderness, but no swelling, increased warmth or erythema as before Feet:.? Limited range of motion with tenderness, but swelling, increased warmth or erythema. Assessment & Plan Assessment & Plan (1) Leukocytosis: Code(s): D72.829 - Elevated white blood cell count, unspecified Category: Medical Qualifiers: Leukocytosis type: unspecified Qualified Code(s): D72.829 - Elevated white blood cell count, unspecified (2) Bilateral ankle joint pain: Code(s): M25.571 - Pain in right ankle and joints of right foot; M25.572 - Pain in left ankle and joints of left foot Category: Medical Plan The patient continues to be in pain though markedly improved and with far less swelling than before. One wonders if Charcot-Gina Tooth is present given her history of T2DM. No refill of Tramadol needed. She has still to do Rhuem labs ordered. Given the abnormal anatomy of her ankle, this will be a chronic issue for the patient, especially with prolonged walking and being on her feet. This has also affected her body mechanics whereby her back pain is increased with sciatica. She has even described what appears to be restless leg syndrome. Podiatry can best explain the anatomy and mechanics of this. The severity of the ankle swelling, pain and tenderness has been reduced with rest, unfortunately at the expense of her job and now this puts her home in jeopardy since she is behind on her rent. She does not require additional follow-up in this office, but I highly recommend to the patient to wear the boots as often as she can tolerate. She expresses that it causes friction and irritation to the medial aspect. Perhaps she can be reassess for a more appropriate fitting boot. I spent 30 minutes reviewing chart, evaluating patient, couseling patient and answering questions, and documenting Coding Level of Care Code Est Pt Level 3 (63550) Diagnoses Leukocytosis, unspecified type D72.829 Leukocytosis type: unspecified Bilateral ankle joint pain M25.571; M25.572
[2023-07-15 15:02] VITALS: BP 130/90; PULSE 102; O2SAT 97; BMI 36.4
== END 2023-07-15 15:34 | disposition home or self-care (01) ==
LOC: HO.RHE 14:44
PROVIDERS: PCP Family Medicine; Visit Provider Nurse Practitioner Family
DX: D72.829 Elevated white blood cell count, unspecified (principal); M25.571 Pain in right ankle and joints of right foot; M25.572 Pain in left ankle and joints of left foot
CPT/HCPCS: 99213

== ENCOUNTER → 2023-07-15 14:44 | Outpatient (BNVA) | payer MEDICAID, SELFPAY | PROVIDERS: PCP Family Medicine; Visit Provider Nurse Practitioner Family | DX: M25.571 Pain in right ankle and joints of right foot (principal); M25.572 Pain in left ankle and joints of left foot; D72.829 Elevated white blood cell count, unspecified | CPT/HCPCS: 99212 ==

== ENCOUNTER 2023-11-10 14:17 | Outpatient (REF) | payer MEDICAID, SELFPAY | END 2023-11-10 14:18 | disposition home or self-care (01) | LOC: HO.LAB 14:17 | PROVIDERS: PCP Family Medicine; Visit Provider Nurse Practitioner Family | DX: Z13.89 Encounter for screening for other disorder (principal) ==

== ENCOUNTER 2023-11-11 10:11 | Outpatient (REF) | payer MEDICAID, SELFPAY ==
[2023-11-11 10:34] LABS: MANUAL DIFF FLAG NO
[2023-11-11 10:56] LABS: Basophils Absolute Auto 0.1 X10*3/uL (0.0-0.2); Basophils Percent Auto 0.4 % (0-2); Eosinophils Absolute Auto 0.2 X10*3/uL (0.0-0.4); Eosinophils Percent Auto 1.7 % (0-4); Hemoglobin 15.5 g/dl (12.0-16.0); Imm Gran Abs Auto 0.04 X10*3/uL (0.00-0.03); Imm Gran Pct Auto 0.3 % (0.0-0.4); Lymphocytes Absolute Auto 3.4 X10*3/uL (1.2-4.9); Lymphocytes Percent Auto 29.4 % (20-40); Mean Corpuscular HGB Conc 33.7 g/dl (31.0-35.0); Mean Corpuscular Hemoglobin 28.5 pg (27.0-33.0); Mean Corpuscular Volume 84.7 fL (80.0-98.0); Mean Platelet Volume 10.9 fL (9.4-12.3); Monocytes Absolute Auto 0.9 X10*3/uL (0.1-1.2); Monocytes Percent Auto 7.8 % (2-11); Neutrophils Percent Auto 60.4 % (45-73); Platelet Count 361 X10*3/uL (160-400); Red Blood Count 5.43 X10*6/uL (4.20-5.50); Red Cell Distribution Width 12.5 % (11.0-16.0); White Blood Count 11.5 X10*3/uL (4.8-10.8)
[2023-11-11 11:25] LABS: C Reactive Protein 1.45 mg/dL (< or = 0.50); Uric Acid 4.4 mg/dL (2.4-5.7)
[2023-11-11 11:39] LABS: HBS Num1 100.37 mIU/mL (0-7.99); HBc Num1 0.18 S/CO (0.00-0.79); HBsAGNum1 0.32 S/CO (0.00-0.99); Hepatitis A Antibody IgM 0.13 Index (0-0.79); Hepatitis B Core Antibody Nonreactive (Nonreactive); Hepatitis B Surface Antigen Negative (Negative); ~HepC Num1 0.15 S/CO (0.00-0.79); ~Hepatitis A Antibody IgM Nonreactive (Nonreactive); ~Hepatitis B Surface Antibody REACTIVE (Nonreactive); ~Hepatitis C Antibody Nonreactive (Nonreactive)
[2023-11-11 11:49] LABS: Erythrocyte Sedimentation Rate 15 MM/HR (0-20)
[2023-11-12 14:27] LABS: Complement C3 191 mg/dL (83-193)
[2023-11-12 14:28] LABS: IgA 309 mg/dL (47-310); IgG 1290 mg/dL (600-1640); IgM 73 mg/dL (50-300)
[2023-11-14 05:39] LABS: TS Negative Control Passed; TS Panel A 2; TS Panel B 1; TS Positive Control Passed; TSpotTB Negative (Negative)
[2023-11-15 11:24] LABS: Anti Nuclear Antibody Screen NEGATIVE (NEGATIVE)
[2023-11-15 19:44] LABS: VITAMIN D (1,25 OH) D3 39 pg/mL; Vit D (1,25-Dihydroxy) Total 39 pg/mL (18-72); Vitamin D (1,25 OH) D2 <8 pg/mL
[2023-11-16 14:34] LABS: Prot Elec - Albumin 4.2 g/dL (3.8-4.8); Prot Elec - Alpha1 0.3 g/dL (0.2-0.3); Prot Elec - Alpha2 0.7 g/dL (0.5-0.9); Prot Elec - Beta 1 0.5 g/dL (0.4-0.6); Prot Elec - Beta 2 0.5 g/dL (0.2-0.5); Prot Elec - Gamma 1.2 g/dL (0.8-1.7); Prot Elec - Total Protein 7.4 g/dL (6.1-8.1)
[2023-11-16 17:54] LABS: Anti DNA DS Antibody 1 IU/mL; SM/Ribonucleoprotein Ab <1.0 NEG AI (<1.0 NEG); Smith Protein <1.0 NEG AI (<1.0 NEG)
== END 2023-11-11 10:12 | disposition home or self-care (01) ==
LOC: HO.LAB 10:11
PROVIDERS: PCP Family Medicine; Visit Provider Nurse Practitioner Family
DX: M25.571 Pain in right ankle and joints of right foot (principal); M25.572 Pain in left ankle and joints of left foot; M25.471 Effusion, right ankle; M25.472 Effusion, left ankle; R70.0 Elevated erythrocyte sedimentation rate; M51.36 Other intervertebral disc degeneration, lumbar region
CPT/HCPCS: 36415; 82550; 82652; 82784; 84165; 84550; 85025; 85652; 86038; 86140; 86160; 86225; 86235; 86481; 86704; 86706; 86709; 86803; 87340; 99212

== ENCOUNTER 2023-11-11 12:50 | Outpatient (AMB) | payer MEDICAID, SELFPAY ==
--- NOTE | 2023-11-11 12:51 | MHC.OFFVIS ---
Vital Signs 11/11/23 12:57 Height 5 ft 7 in Weight 237 lb 7.005 oz BMI 37.2 BP 130/82 Blood Pressure Location Rt brachial Position Sitting Pulse 90 Pulse Source Pulse Oximeter Pulse Oximetry (%) 99 Oxygen Delivery Method Room Air Intake Visit Reasons: BL ankle Pain Intake Note: Patient presents for BL ankle pain. Lead Java J2Ee Developer Required: Yes Lead Java J2Ee Developer Language: Parliamentary Archivist Services: Lead Java J2Ee Developer Present Lead Java J2Ee Developer Name: Karthikeyan Pro Information Interpreted: non-clinical & clinical Farm Mortgage Agent: Farm Mortgage Agent Present Accompanied by: Daughter Allergies No Known Allergies Allergy (Verified 11/11/23 12:56) Medication List - Last Reconciled 11/11/23 by Talya Bradshaw MD albuterol sulfate 90 mcg/actuation 2 puffs inhalation Q4-6H PRN albuterol sulfate 2.5 mg inhalation Q4H PRN fluticasone propionate 110 mcg/actuation (Flovent HFA) 1 puff PO BID insulin glargine (Lantus Solostar U-100 Insulin) 35 units subcut BEDTIME loperamide 4 mg PO TID PRN melatonin 10 mg PO BEDTIME PRN metformin ER 1,000 mg PO BID omeprazole 1 cap PO DAILY PRN tramadol 50 mg PO BID trazodone 1 tab PO BEDTIME PRN HPI Comments Details: Patient returns for follow-up. She was previously evaluated by Mechelle Sequeira. No evidence of an autoimmune rheumatic disease was found at that time. She continues to have bilateral foot pain, she also has pain in both her hands. She states that objects for from her hands. She does not have a good vocational rehabilitation consultant. She was evaluated by hand specialist and was told that she has bilateral carpal tunnel syndrome and surgery was discussed. Patient would like to proceed with an injection [address] [place] [address] Medical History Elevated sed rate Bilateral ankle joint pain Fixation hardware in foot Leukocytosis Polycythemia Osteomyelitis of ankle Swelling of both ankles GERD (gastroesophageal reflux disease) Hypertension Diabetes Asthma Surgical History H/O left knee surgery Family History Other Asthma Social History Household Members: Family Household Members Other:: and sister Housing: Apartment Do you presently have visiting nurse or other home services: No Alcohol intake: current Alcohol intake frequency: holidays/special occasions only Patient Tobacco Use Status: Current everyday Tobacco user Tobacco use type: Cigarette Cigarettes Per Day: 2 Advance Directives Date on File: 04/14/21 service: No Current occupational status: employed 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 Review of Systems Musc Reports back pain, Reports deformity, Reports arthralgias, Reports joint swelling, Reports radiating pain into limb and Reports stiffness Physical Exam Vital Signs: Last Vital Signs Pulse 90 11/11/23 12:57 BP 130/82 11/11/23 12:57 Pulse Ox 99 11/11/23 12:57 Oxygen Delivery Method Room Air 11/11/23 12:57 BMI result Body Mass Index 37.2 Const General: cooperative, healthy appearing and comfortable Nutritional Appearance: obese morbidly obese Orientation/consciousness: patient oriented x3 Limitations: no limitations HEENT Head: Yes normocephalic and Yes atraumatic Mouth: moist mucous membranes Resp Effort & Inspection: normal respiratory effort and able to speak in complete sentences Auscultation: clear to auscultation bilaterally Cardio Rate: regular rate Rhythm: regular rhythm Skin General skin exam: no rashes or lesions noted Neuro General: patient oriented x3 Extrem Other: No active synovitis Normal nailfold capillaroscopy Mild swelling of both ankles and feet Bilateral big toe bunions that are tender to palpation Positive straight leg raise test bilaterally Assessment & Plan Assessment & Plan (1) Swelling of both ankles: Code(s): M25.471 - Effusion, right ankle; M25.472 - Effusion, left ankle Category: Medical Plan: This is a 38-year-old female who presents for follow-up. She was previously evaluated by Mechelle Sequeira. Upon evaluation today I do not see any evidence of an autoimmune rheumatic disease. Previous imaging not consistent with inflammatory arthritis. Follow-up with other providers (2) Lumbar degenerative disc disease: Code(s): M51.36 - Other intervertebral disc degeneration, lumbar region Category: Medical Plan: Referred to pain management Plan I spent 20 minutes reviewing patient's chart, evaluating patient, counseling patient and documenting in the chart Orders: Referrals Pain Management Referral M51.36 - Other intervertebral disc degeneration, lumbar region Coding Level of Care Code Est Pt Level 3 (37744) Diagnoses Swelling of both ankles M25.471; M25.472 Lumbar degenerative disc disease M51.36
[2023-11-11 12:57] VITALS: BP 130/82; PULSE 90; O2SAT 99; BMI 37.2
== END 2023-11-11 15:42 | disposition home or self-care (01) ==
PROVIDERS: PCP Family Medicine; Visit Provider Student in an Organized Health Care Education/Training Program
DX: M25.471 Effusion, right ankle (principal); M25.472 Effusion, left ankle; M51.36 Other intervertebral disc degeneration, lumbar region
CPT/HCPCS: 99213

== ENCOUNTER 2023-12-22 09:09 | Outpatient (AMB) | payer MEDICAID, SELFPAY ==
--- NOTE | 2023-12-22 09:16 | MHC.OFFVIS ---
Intake Visit Reasons: OV - B/L hand/wrist CTS Intake Note: Martina is a 38 year old right hand dominant female who presents today for a follow up visit with complaints of bilateral hand numbness, tingling, and pain. EMG done on 01/29/21. Patient reports her hands have worsened since her last visit with Dr. Tang. Patient expresses difficulty opening and closing lids. She has noticed she is dropping items more than before. Patient expresses concern on how difficult it is to work with the constant numbness and tingling she is experiencing. She was recently prescribed wrist braces but she has not used them. Patient was educated on the importance of using the wrist braces, bilaterally, to help her during the night. Patient would like to discuss injection today. Return To Factory Clerk Required: No Allergies No Known Allergies Allergy (Verified 12/22/23 09:17) HPI HPI OV - B/L hand/wrist CTS: Details: Patient is a 38-year-old female who presents for bilateral carpal tunnel syndrome, ongoing for at least 3-4 years. The patient reports that her symptoms have progressively worsened since previous evaluation in [address] Tang. The patient understands that she has not gotten her hemoglobin A1c down to the goal of below 8, as it was 12.4 at last reading, but the patient's primary was curious if she could get an injection in our office at this time. Patient reports that the numbness and tingling is intermittent, daily, worse at night. The patient was previously provided with braces, but she finds it difficult to wear them during the day. No other acute complaints or concerns at this time. [facility] Medical History Elevated sed rate Bilateral ankle joint pain Fixation hardware in foot Leukocytosis Polycythemia Osteomyelitis of ankle Swelling of both ankles GERD (gastroesophageal reflux disease) Hypertension Diabetes Asthma Surgical History H/O left knee surgery Family History Other Asthma Social History Household Members: Family Household Members Other:: and sister Housing: Apartment Do you presently have visiting nurse or other home services: No Alcohol intake: current Alcohol intake frequency: holidays/special occasions only Patient Tobacco Use Status: Current everyday Tobacco user Tobacco use type: Cigarette Cigarettes Per Day: 2 Advance Directives Date on File: 04/14/21 service: No Current occupational status: employed 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 Physical Exam Const General: cooperative, healthy appearing and no acute distress Orientation/consciousness: oriented to person and oriented to place HEENT Head: Yes normocephalic and Yes atraumatic Eyes EOM: EOMs intact bilaterally Resp Effort & Inspection: normal respiratory effort and able to speak in complete sentences Cardio Jugular venous distension: no JVD Skin General skin exam: turgor normal Rashes: no rashes Neuro General: oriented to person and oriented to place Extrem Other: Evaluation of bilateralUpper Extremity: Neuro: Median, ulnar, radial nerves motor and sensory grossly intact. No thenar or intrinsic wasting. Good finger cross and good APB muscle belly firing. Positive Tinel sign over the left carpal tunnel and over the median nerve in the distal forearm. Vascular: Cap refill brisk. ROM: Can bring fingers closed to a fist and back out to full or nearly full extension. Can oppose thumb to fingertips Skin: No lacerations or abrasions. General: No eccymosis. No erythema or evidence of infection. She complains of pain extending from her palm across the carpal tunnel to the volar distal forearm. She showed me that when she makes a fist it causes worsening of this discomfort. EMG nerve conduction study from 01/29/[address] rebekah Gardner showed mild carpal tunnel syndrome on the left and early carpal tunnel syndrome on the right. Please see his report for additional information as necessary. Upon checking her blood chemistries her most recent blood glucose measurements were all of her 300. No hemoglobin A1c was found. Psych Appearance: grossly normal Affect: normal affect Attitude: cooperative Assessment & Plan Assessment & Plan (1) Carpal tunnel syndrome of right wrist: Code(s): G56.01 - Carpal tunnel syndrome, right upper limb Category: Medical (2) Carpal tunnel syndrome of left wrist: Code(s): G56.02 - Carpal tunnel syndrome, left upper limb Category: Medical Plan 1. Bilateral carpal tunnel syndrome Symptoms intermittent, daily, worse at night At this time, patient is educated that because her A1c has not been brought down to goal yet, we are not able to proceed with surgery Patient is also educated that due to the fact that she has had poor recent blood sugar control as well, we can not perform a steroid injection at this time, as this could cause her blood sugars despite to dangerously high levels Patient states understanding this Patient is educated that she should only be wearing the Velcro wrist splints at night to help with nighttime symptoms, to prevent stiffness Patient understands this Patient will follow-up after her A1c is below 8 to discuss further treatment options when they are safe, sooner with any acute concerns Coding Level of Care Code Est Pt Level 3 (91919) Diagnoses Carpal tunnel syndrome of right wrist G56.01 Carpal tunnel syndrome of left wrist G56.02
== END 2023-12-22 10:46 | disposition home or self-care (01) ==
LOC: HO.HOS 09:09
PROVIDERS: PCP Family Medicine
DX: G56.03 Carpal tunnel syndrome, bilateral upper limbs (principal)
CPT/HCPCS: 99213

== ENCOUNTER → 2023-12-22 09:09 | Outpatient (BNVA) | payer MEDICAID, SELFPAY | PROVIDERS: PCP Family Medicine | DX: M51.369 Other intervertebral disc degeneration, lumbar region without mention of lumbar back pain or lower extremity pain (principal); M47.816 Spondylosis without myelopathy or radiculopathy, lumbar region; G56.03 Carpal tunnel syndrome, bilateral upper limbs | CPT/HCPCS: 99212 ==

== ENCOUNTER 2023-12-22 09:10 | Outpatient (AMB) | payer MEDICAID, SELFPAY ==
[2023-12-22 09:17] VITALS: BP 125/71; PULSE 88; O2SAT 97; BMI 37.6
--- NOTE | 2023-12-22 09:17 | A.OFFVIS_ITS ---
Vital Signs 12/22/23 09:17 Height 5 ft 7 in Weight 240 lb BMI 37.6 BP 125/71 Blood Pressure Location Rt brachial Position Sitting Pulse 88 Pulse Source Pulse Oximeter Pulse Oximetry (%) 97 Oxygen Delivery Method Room Air Intake Visit Reasons: Other intervertebral disc degeneration Allergies No Known Allergies Allergy (Verified 12/22/23 09:17) Medication List - Last Reconciled 12/22/23 by Madison Macedo, INTERNATIONAL AFFAIRS VICE PRESIDENT, PHYTOCHEMISTRY PROFESSOR albuterol sulfate 90 mcg/actuation 2 puffs inhalation Q4-6H PRN albuterol sulfate 2.5 mg inhalation Q4H PRN fluticasone propionate 110 mcg/actuation (Flovent HFA) 1 puff PO BID gabapentin 600 mg PO TID insulin glargine (Lantus Solostar U-100 Insulin) 35 units subcut BEDTIME loperamide 4 mg PO TID PRN melatonin 10 mg PO BEDTIME PRN metformin ER 1,000 mg PO BID omeprazole 1 cap PO DAILY PRN tramadol 50 mg PO BID trazodone 1 tab PO BEDTIME PRN HPI Comments Details: Martina is a very pleasant 30-year-old female who presents the office today, accompanied by her daughter, for evaluation and management of her chronic lower back pain. She has been suffering with this pain for approximately 1 year, denies inciting injury, fall, trauma. Endorses midline lower back pain without radiation down either lower extremity Pain today is rated as a 10/10, constant throughout the day. Pain is worse with standing, bending, sitting, twisting, lifting. She states it is exacerbated by her current work conditions which require to be physically active and stand for 8 hours a day. She has been taking Tylenol Motrin without improvement of her symptoms. Prescribed gabapentin which provides her little relief. Lidocaine patches gave her no relief. Denies any recent images Denies attempts at physical therapy Denies chiropractor, acupuncture, massage or previous attempts at injections In terms of muscle damage condition is described as aching, spasming, shooting, throbbing, stabbing, sharp. Pain is negatively impacting patient's enjoyment of life, general activity, mood, normal work, recreational activities, relationships with people, sleep and walking Patient also suffering with bilateral ankle pain that has been under evaluation management by Rheumatology and Podiatry. She would like to have this addressed in the future after her back pain is managed. Denies current use of anticoagulants Denies implantable devices, pacemaker defibrillator Denies current use of nicotine, tobacco, alcohol or illicit substances. FORMERLY [facility], 1928–1983 Medical History Elevated sed rate Bilateral ankle joint pain Fixation hardware in foot Leukocytosis Polycythemia Osteomyelitis of ankle Swelling of both ankles GERD (gastroesophageal reflux disease) Hypertension Diabetes Asthma Surgical History H/O left knee surgery Family History Other Asthma Social History Household Members: Family Household Members Other:: and sister Housing: Apartment Do you presently have visiting nurse or other home services: No Alcohol intake: current Alcohol intake frequency: holidays/special occasions only Patient Tobacco Use Status: Current everyday Tobacco user Tobacco use type: Cigarette Cigarettes Per Day: 2 Advance Directives Date on File: 04/14/21 service: No Current occupational status: employed 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 Answers questions appropriately. Fully engaged in examination. Skin: warm, dry, intact HEENT: Normocephalic. Hearing intact. Cardiac: External chest normal in appearance. Respiratory: No cough, audible wheezing or stridor. Abdomen: without gross distension. MS: No obvious swelling or deformities. Able to stand on bilateral tiptoes and bilateral heels.? Able to transition from sit to stand unassisted. Ambulates with bilaterally normal heel strike and toe off SLR negative bilaterally Bilateral lower extremity strength 5/5 Tenderness midline lumbar vertebrae and lumbar paraspinal muscles Negative footdrop, negative clonus Decreased lumbar range of motion. Pain at 50 degrees forward flexion, 5 degrees extension Facet loading positive bilaterally Neurological: Oriented to person, place, time and situation. Thought process intact. No gait abnormalities appreciated. Psychiatric: Appropriate mood and affect. Good judgment and insight. Assessment & Plan Assessment & Plan (1) Dorsalgia: Code(s): M54.9 - Dorsalgia, unspecified Category: Medical (2) Lumbar degenerative disc disease: Code(s): M51.36 - Other intervertebral disc degeneration, lumbar region Category: Medical (3) Lumbar spondylosis: Code(s): M47.816 - Spondylosis without myelopathy or radiculopathy, lumbar region Category: Medical Plan X-rays ordered for evaluation Order placed for PT eval and treat Tizanidine 2 mg p.o. 3 times daily as needed. Patient advised on cautions for use. All questions and concerns were answered, patient agrees with the plan. Follow up after PT, sooner if needed. Orders: Orders PT Evaluation and Treatment Today M54.9 - Dorsalgia, unspecified XR lumbar spine 4V min Today M54.9 - Dorsalgia, unspecified Medications: New tizanidine No driving while taking this medication. May cause drowsiness. Do not take with alcohol or other BESSEMER REGULATOR Depressants. 2 mg PO TID PRN 90 tabs 1RF muscle spasticity Coding Level of Care Code New Pt Level 4 (66618) Complex EM visit Add On G2211 Diagnoses Dorsalgia M54.9 Lumbar degenerative disc disease M51.36 Lumbar spondylosis M47.816
== END 2023-12-22 09:41 | disposition home or self-care (01) ==
LOC: HO.PMC 09:11
PROVIDERS: PCP Family Medicine; Visit Provider Registered Nurse Emergency
DX: M54.9 Dorsalgia, unspecified (principal); M51.369 Other intervertebral disc degeneration, lumbar region without mention of lumbar back pain or lower extremity pain; M47.816 Spondylosis without myelopathy or radiculopathy, lumbar region
CPT/HCPCS: 99204

== ENCOUNTER 2024-03-08 12:06 | Outpatient (REF) | payer MEDICAID, SELFPAY ==
[2024-03-08 13:27] LABS: Amphetamine Screen Urine Not Detected (Not Detect); Barbiturates, Urine Not Detected (Not Detect); Benzodiazepines Screen Urine Not Detected (Not Detect); Buprenorphine Scr Not Detected (Not Detect); Cannabinoid Screen Urine POSITIVE (Not Detect); Cocaine Screen Urine Not Detected (Not Detect); Fentanyl, urine Not Detected (Not Detect); Methadone Screen, Urine Not Detected (Not Detect); Opiate Screen Urine Not Detected (Not Detect); Oxycodone Screen Urine Not Detected (Not Detect); Phencyclidine Screen Urine Not Detected (Not Detect)
[2024-03-08 13:54] LABS: Alanine Aminotransferase 29 U/L (0-31); Albumin Level 4.1 g/dL (3.5-5.0); Alkaline Phosphatase 91 U/L (39-117); Anion Gap 10 (12-20); Aspartate Amino Transferase 25 U/L (5-31); Bilirubin Total 0.5 mg/dL (0.0-1.0); Blood Urea Nitrogen 11 mg/dL (9-16); Calcium 9.8 mg/dL (8.4-10.2); Carbon Dioxide 29 mmol/L (22-29); Chloride 101 mmol/L (96-108); Cholesterol 176 mg/dL (<200); Estimated Glomerular Filt Rate > 60; Glucose Random 142 mg/dL (60-115); HDL Cholesterol 39 mg/dL (>40); LDL Cholesterol Calculated 102 mg/dL (<100); Potassium 4.3 mmol/L (3.3-5.1); Sodium 136 mmol/L (135-145); Total Protein 7.9 g/dL (6.5-8.0); Triglycerides 178 mg/dL (<150)
[2024-03-08 14:01] LABS: Estimated Average Glucose 194 mg/dL; Hemoglobin A1C 249.3234 umol/L; Hemoglobin A1c % 8.4 % (<6.0); Total Hemoglobin (HGBA1C) 3638.0841 umol/L
--- OUTSIDE RECORDS SUMMARY | 2024-03-08 14:01 | XMS_ITS | Clinical Summary ---
Author Organization [address] [facility] Address [address] [place] [address] Phone Care Team Providers Care Cath Lab Nurse Name Role Phone Ashley Kebede MD Primary Care Provider [phone] Allergies No known active allergies Medications Medication Sig Dispensed Refills Start Date End Date Status albuterol sulfate (ProAir RespiClick) 90 mcg/actuation aerosol powdr breath activated Inhale into the lungs. Active amoxicillin (AMOXIL) 500 mg capsule Take 1 Capsule by mouth 3 times daily. Active budesonide-formoteroL (SYMBICORT) 160-4.5 mcg/actuation inhaler Inhale 2 Puffs into the lungs 2 times daily. Active celecoxib (CeleBREX) 100 mg capsule Take 1 Capsule by mouth 2 times daily. Active diclofenac (VOLTAREN) 1 % topical gel Apply 4 g topically 2 times daily. 10/14/2023 Active doxycycline hyclate (VIBRA-TABS) 150 mg tablet Take by mouth. Active fluticasone propionate (FLOVENT DISKUS) 250 mcg/actuation diskus inhaler Inhale into the lungs. Active gabapentin (NEURONTIN) 600 mg tablet Take 1 Tablet by mouth 2 times daily. Active insulin glargine (LANTUS) 100 unit/mL injection Inject into the skin at bedtime. Active loperamide (IMODIUM) 2 mg capsule Take 1 Capsule by mouth 4 times daily as needed. Active OMEPRAZOLE ORAL Take by mouth. Activ e oxyCODONE-acetaminoph en (LYNOX) 5-300 mg per tablet Take 1 Tablet by mouth every 4 hours as needed. Active traZODone (DESYREL) 50 mg tablet Take 1 Tablet by mouth at bedtime. Active Medical History Medical History Date Comments Diabetes mellitus (CMS/HCC) DX:D iabetes mellitus (HCC) Social History Tobacco Use Types Packs/Day Years Used Date Smoking Tobacco: Never Assessed Sex and Gender Information Value Date Recorded Sex Assigned at Not on file Gender Identity Not on file Sexual Orientation Not on file Job Start Date Occupation Industry Not on file Not on file Not on file Obstetrics History Last Filed Vital Signs Vital Sign Reading Time Taken Comments Blood Pressure 145/91 09/29/2023 10:00 AM EDT Pulse 91 09/29/2023 10:00 AM EDT Temperature - - Respiratory Rate - - Oxygen Saturation - - Inhaled Oxygen Concentration - - Weight 113 kg (250 lb) 10/14/2023 1:00 PM EDT Height 165.1 cm (5' 5 ) 10/14/2023 1:00 PM EDT Body Mass Index 41.6 10/14/2023 1:00 PM EDT Plan of Treatment Health Maintenance Due Date Last Done Comments Pneumococcal Vaccine: Pediat rics (0 to 5 Years) and At-Risk Patients (6 to 64 Years) (1 of 2 - PCV) 05/03/1991 DTaP,Tdap,and Td Vaccines (1 - Tdap) 2004 Hepatitis B Vaccines (1 of 3 - 19+ 3-dose series) 2004 Cervical Cancer Screening: P ap Smear 2006 COVID-19 Vaccine ( - 2023-2 5 season) 2023 Influenza Vaccine (#1) 2023 Depression Screening 11/25/2023 Social Influencers of Health Screening 11/25/2023 Cholesterol Screening (Lipid Panel) 06/23/2027 06/22/2022 HIV Screening Completed 07/30/2020 Hepatitis C Screening Completed 08/13/2022 HIB Vaccines Aged Out No longer eligi ble based on patient's age to complete this topic HPV Vaccines Aged Out No longer eligi ble based on patient's age to complete this topic Hepatitis A Vaccines Aged Out No long er eligible based on patient's age to complete this topic IPV Vaccines Aged Out No longer eligi ble based on patient's age to complete this topic MMR Vaccines Aged Out No longer eligi ble based on patient's age to complete this topic Meningococcal ACWY Vaccine Aged Out N o longer eligible based on patient's age to complete this topic RSV Immunization Patients Un max 20 months Aged Out No longer eligible b ased on patient's age to complete this topic Varicella Vaccines Aged Out No longer eligible based on patient's age to complete this topic Procedures Procedure Name Priority Date/Time Associated Diagnosis Comments HEPATITIS C SCREENING Routine 08/13/2022 LIPID PANEL Routine 06/22/2022 HIV SCREENING Routine 07/30/2020 from Last 3 Months or Most Recently Relevant to Health Maintenance Results * Hepatitis C Screening (08/13/2022) Hepatitis C Screening Abstracted Historical Provider MD LEXIS Lopez * Lipid panel (06/22/2022) Triglycerides 0 mg/dL Comment:No interpretation, A bstracted Cholesterol 0 mg/dL Comment:No interpretation, A bstracted HDL 0 mg/dL Comment:No interpretation, A bstracted LDL Cholesterol 0 mg/dL Comment:No interpretation, A bstracted Blood Venous blood specimen / Unknown Historical Provider LAB BLOOD ORDERAB LES * HIV Screening (07/30/2020) HIV Screening Abstracted Historical Provider MD LEXIS Lopez from Last 3 Months or Most Recently Relevant to Health Maintenance Care Teams Cath Lab Nurse Relationship Specialty Start Date End Date Ashley Kebede MD [address] [place] [address] PCP - General 04/21/23
--- OUTSIDE RECORDS SUMMARY | 2024-03-08 14:01 | XMS_ITS | Clinical Summary ---
Author Organization [facility] Address [address] [place] [id number] Care Team Providers Care Counselor Camp Name Role Phone Unavailable Primary Care Provider Unavailabl e Allergies No known active allergies Medications Medication Sig Dispensed Refills Start Date End Date Status omeprazole (PriLOSEC) suspension 2 mg/mL (Compound) Take by mouth. 0 Active Albuterol Sulfate 108 (90 Base) MCG/ACT AEPB Inhale into the lungs. 0 Active Blood Glucose Monitoring Suppl ([employer] [place] Lite) w/Device KIT USE DIRECTED 0 06/15/2023 A ctive celecoxib (CeleBREX) 200 MG capsule TOME WILD C PSULA DOS VECES AL D A 0 07/18/2023 Active metFORMIN (GLUCOPHAGE-XR) ER 24 hr tablet 500 mg Take 2 tablets (1,000 mg total) by mouth 2 (two) times a day. 0 07/24/2022 Active traMADol (ULTRAM) 50 MG tablet TOME 1 TABLETA POR V A ORAL DOS VECES AL D A CUANDO SEA NECESARIO PARA EL DOLOR 0 09/09/2023 Active gabapentin (NEURONTIN) 300 MG capsule Take 1 capsule (300 mg total) by mouth 3 (three) times a day. 90 capsule 0 09/29/2023 Active Social History Tobacco Use Types Packs/Day Years Used Date Smoking Tobacco: Never Assessed Sex and Gender Information Value Date Recorded Sex Assigned at Not on file Gender Identity Not on file Sexual Orientation Not on file Job Start Date Occupation Industry Not on file Not on file Not on file Last Filed Vital Signs Vital Sign Reading Time Taken Comments Blood Pressure 145/91 09/29/2023 10:00 AM EDT Pulse 91 09/29/2023 10:00 AM EDT Temperature 36.9 ??C (98.4 ??F) 09/29/2023 10:00 AM E DT Respiratory Rate - - Oxygen Saturation 99% 09/29/2023 10:00 AM EDT Inhaled Oxygen Concentration - - Weight 104.3 kg (230 lb) 09/29/2023 10:00 AM EDT Height 170.2 cm (5' 7 ) 09/29/2023 10:00 AM EDT Body Mass Index 36.02 09/29/2023 10:00 AM EDT Plan of Treatment Health Maintenance Due Date Last Done Comments Depression Screening 1997 Preventative Health Evaluation 05/03/2003 Cervical Cancer Screening (Pap Smear) 2006 Hepatitis B Vaccines (2 of 3 - 19+ 3-dose series) 12/25/2017 11/27/2017 COVID-19 Vaccine (2 - 2023-2 5 season) 2023 04/19/2023 Influenza Vaccine (#1) 2023 , 01/15/2020, 11/30/2011 DTap / Tdap / Td (2 - Td or Tdap) 07/30/2030 07/30/2020 Hepatitis C Screening Completed 08/13/2022 Pneumococcal Vaccine Completed 04/19/2023, 11/30/2011 RSV Ped < 20 months Aged Out No longe r eligible based on patient's age to complete this topic Martina Metzger TPL/AUTO Self 1985 [address] [place] [address]
[2024-03-08 14:05] LABS: Creatinine Urine 139.85 mg/dL
[2024-03-08 14:20] LABS: Reflex LDLD? No
[2024-03-08 15:05] LABS: Folate 12.7 ng/mL (> or = 4.0); Vitamin B12 385 pg/mL (200-900)
== END 2024-03-08 12:07 | disposition home or self-care (01) ==
LOC: HO.HHCL 12:06
PROVIDERS: Registered Nurse; Visit Provider Family Medicine
DX: F41.9 Anxiety disorder, unspecified (principal); F32.A Depression, unspecified; E11.65 Type 2 diabetes mellitus with hyperglycemia; Z79.4 Long term (current) use of insulin; E11.29 Type 2 diabetes mellitus with other diabetic kidney complication; R80.9 Proteinuria, unspecified; Z02.83 Encounter for blood-alcohol and blood-drug test
CPT/HCPCS: 36415; 80053; 80061; 80307; 82043; 82570; 82607; 82746; 83036

== ENCOUNTER 2024-06-19 07:00 | Emergency (ER) | payer OTHER, SELFPAY ==
--- NOTE | 2024-06-19 | ECG_ITS ---
Test Reason : chest pain Blood Pressure : */* mmHG Vent. Rate : 72 BPM Atrial Rate : 72 BPM P-R Int : 122 ms QRS Dur : 74 ms QT Int : 376 ms P-R-T Axes : 57 17 26 degrees QTcB Int : 411 ms Normal sinus rhythm in second part of EKG Idioventricular rhythm in first part Cannot rule out Anterior infarct , age undetermined Abnormal ECG When compared with ECG of 15-Sep-2020 13:34, Rhythm change Vent. rate has decreased by 38 bpm Referred By: Generic ED Physician Electronically Signed By: PORTER MONTGOMERY
--- NOTE | ~2024-06-19 | XR_ITS ---
EXAMINATION: XR CHEST 1 VIEW HISTORY: pain COMPARISON: There are no prior studies for comparison. FINDINGS: A single AP portable view of the chest performed at 7:56 AM is submitted. There is linear subsegmental atelectasis in the right midlung zone and at the left lung base. There is no pleural effusion, pneumothorax, or pulmonary vascular congestion. The heart is normal in size. The bones are intact. XR/XR chest 1V IMPRESSION: Subsegmental atelectasis in the right midlung zone and at the left lung base. Electronically signed by: Angelo Mccartney MD 06/19/2024 08:13 AM EDT
[2024-06-19 07:03] VITALS: BP 129/72; PULSE 76; RESP 18; TEMP 36.4; O2SAT 99; BMI 37.8
[2024-06-19 07:25] LABS: MANUAL DIFF FLAG NO
[2024-06-19 07:34] LABS: Basophils Percent Auto 0.3 % (0-2); Eosinophils Absolute Auto 0.3 X10*3/uL (0.0-0.4); Eosinophils Percent Auto 2.4 % (0-4); Hematocrit 37.4 % (37.0-47.0); Hemoglobin 12.7 g/dl (12.0-16.0); Imm Gran Abs Auto 0.04 X10*3/uL (0.00-0.03); Imm Gran Pct Auto 0.3 % (0.0-0.4); Lymphocytes Absolute Auto 4.3 X10*3/uL (1.2-4.9); Lymphocytes Percent Auto 35.3 % (20-40); Mean Corpuscular Hemoglobin 29.1 pg (27.0-33.0); Mean Corpuscular Volume 85.6 fL (80.0-98.0); Mean Platelet Volume 9.6 fL (9.4-12.3); Monocytes Percent Auto 8.1 % (2-11); Neutrophils Absolute Auto 6.6 x10*3/uL (2.0-8.3); Neutrophils Percent Auto 53.6 % (45-73); Platelet Count 369 X10*3/uL (160-400); Red Blood Count 4.37 X10*6/uL (4.20-5.50); Red Cell Distribution Width 13.3 % (11.0-16.0); White Blood Count 12.2 X10*3/uL (4.8-10.8)
[2024-06-19 07:40] LABS: Alanine Aminotransferase 24 U/L (0-31); Albumin Level 3.9 g/dL (3.5-5.0); Alkaline Phosphatase 83 U/L (39-117); Anion Gap 12 (12-20); Aspartate Amino Transferase 22 U/L (5-31); Bilirubin Total 0.2 mg/dL (0.0-1.0); Blood Urea Nitrogen 13 mg/dL (9-16); Calcium 9.1 mg/dL (8.4-10.2); Carbon Dioxide 26 mmol/L (22-29); Chloride 104 mmol/L (96-108); Creatinine Clr Calc Pharmacy 130.1; Estimated Glomerular Filt Rate > 60; Glucose Random 156 mg/dL (60-115); Potassium 3.7 mmol/L (3.3-5.1); Sodium 138 mmol/L (135-145); Total Protein 6.9 g/dL (6.5-8.0)
--- OUTSIDE RECORDS SUMMARY | 2024-06-19 07:50 | XMS_ITS ---
Author Name CRIS Organization Unknown Encounters Encounter Type Encounter Reason Primary Diagnosis Location Date Ambulatory [facility] 11/26/2023 Care Team Organization Name Specialty Phone Email Start Date End Da te [facility] 2024
--- OUTSIDE RECORDS SUMMARY | 2024-06-19 07:50 | XMS_ITS | Clinical Summary ---
Author Organization [address] [facility] Address [address] [place] [address] Phone Care Team Providers Care Numerical Control Programmer Name Role Phone Ashley Kebede MD Primary Care Provider [phone] Allergies No known active allergies Medications albuterol sulfate (ProAir RespiClick) 90 mcg/actuation aerosol powdr breath activated Inhale into the lungs. Active amoxicillin (AMOXIL) 500 mg capsule Take 1 Capsule by mouth 3 times daily. Active budesonide-form oteroL (SYMBICORT) 160-4.5 mcg/actuation inhaler Inhale 2 Puffs into the lungs 2 times daily. Active celecoxib (CeleBREX) 100 mg capsule Take 1 Capsule by mouth 2 times daily. Active diclofenac (VOLTAREN) 1 % topical gel Apply 4 g topically 2 times daily. 4 Active doxycycline hyclate (VIBRA-TABS) 150 mg tablet Take by mouth. A ctive fluticasone propionate (FLOVENT DISKUS) 250 mcg/actuation diskus inhaler Inhale into the lungs. Active gabapentin (NEURONTIN) 600 mg tablet Take 1 Tablet by mouth 2 times daily. Active insulin glargine (LANTUS) 100 unit/mL injection Inject into the skin at bedtime. Active loperamide (IMODIUM) 2 mg capsule Take 1 Capsule by mouth 4 times daily as needed. Active OMEPRAZOLE ORAL Take by mouth. Active oxyCODONE-aceta minophen (LYNOX) 5-300 mg per tablet Take 1 Tablet by mouth every 4 hours as needed. Active traZODone (DESYREL) 50 mg tablet Take 1 Tablet by mouth at bedtime. Active Medical History Medical History Date Comments Diabetes mellitus (CMS/HCC V24, CMS/HCC V28) DX:Diabetes mellitus (HCC) Social History Tobacco Use Types Packs/Day Years Used Date Smoking Tobacco: Never Assessed Comments Unknown Sex and Gender Information Value Date Recorded Sex Assigned at Not on file Legal Sex Female 4:18 AM EST Gender Identity Not on file Sexual Orientation Not on file Obstetrics History Last Filed [...] Health Maintenance Due Date Last Done Comments DTaP,Tdap,and Td Vaccines (1 - Tdap) 2004 Hepatitis B Vaccines (1 of 3 - 19+ 3-dose series) 2004 Pneumococcal Vaccine: Pediat rics (0 to 5 Years) and At-Risk Patients (6 to 64 Years) (1 of 2 - PCV) 2004 Cervical Cancer Screening: P ap Smear 2006 COVID-19 Vaccine (2023-2 5 season) 2023 Depression Screening 11/25/2023 Social Influencers of Health Screening 11/25/2023 Influenza Vaccine (Season Ended) 2024 Cholesterol Screening (Lipid Panel) 06/23/2027 06/22/2022 HIV [...] patient's age to complete this topic Meningococcal B Vaccine Aged Out No l onger eligible based on patient's age to complete [...] C Screening (08/13/2022) Hepatitis C Screening Abstracted [facility] Provider HEALTH MAINTENANCE Final Result * Lipid panel (06/22/2022) Triglycerides 0 mg/dL Comment:No interpretation, A bstracted Cholesterol 0 mg/dL Comment:No interpretation, A bstracted HDL 0 mg/dL Comment:No interpretation, A bstracted LDL Cholesterol 0 mg/dL Comment:No interpretation, A bstracted Blood Venous blood specimen / Unknown Historical Provider LAB BLOOD ORDERABLES Ana l Result * HIV Screening (07/30/2020) HIV Screening Abstracted Historical Provider HEALTH MAINTENANCE Final Result from Last 3 Months or Most Recently Relevant to Health Maintenance Insurance MEDICAID - [place] Care Teams Numerical Control Programmer Relationship Specialty Start Date End Date Ashley Kebede MD [address] [place] [phone] PCP - General 04/21/23
--- OUTSIDE RECORDS SUMMARY | 2024-06-19 07:50 | XMS_ITS | Clinical Summary ---
Author Organization [facility] Address [address] [place] [id number] Care Team Providers Care Civil Engineering Drafter Name Role Phone Unavailable Primary Care Provider Unavailabl e Allergies No known active allergies Medications Medication Sig Dispensed Refills Start Date End Date Status omeprazole (PriLOSEC) suspension 2 mg/mL (Compound) Take by mouth. 0 Active Albuterol Sulfate 108 (90 Base) MCG/ACT AEPB Inhale into the lungs. 0 Active Blood Glucose Monitoring Suppl ([employer] [place] Lite) w/Device KIT USE DIRECTED 0 06/15/2023 [...] TPL/AUTO Self 1985 [address] [place] [address]
[2024-06-19 07:51] LABS: Troponin-I High Sensitivity < 2.7 ng/L (<3.5-17.0)
--- NOTE | 2024-06-19 07:59 | ED_ITS ---
HPI - Chest Pain General Chief Complaint: Chest Pain Stated Complaint: high bp Time Seen by Provider: 06/19/24 07:22 Source: patient, family (preferred to interpret) and old records reviewed Mode of arrival: ambulatory Limitations: no limitations History of Present Illness ED Provider: MARSHA COBIAN narrative: 39 yo female with PMH of HTN, GERD, asthma, DM, not on OCPs who woke up at 5am today and felt L sided sharp chest pain that comes and goes it hurts to take a deep breath. She has no known CAD and no recent travel or procedure. She has had slight cough with asthma recently but no fevers/sputum. She has no prior history of this. She checked her BP at work today she works at [employer] and it was 140/100 so they told her to come to the ED. She still has slight pain with breathing. She also felt her heart racing at one point as well as if she had just run. She states she has had more exertional chest pain. MD complaint: chest pain Onset (ago): hour(s) (5am) Timing of current episode: episodic Prior episodes: No Onset: during rest Pain location: left chest Pain radiation: none Severity: moderate Quality: sharp Relieving factors: nothing Exacerbating factors: inspiration Context: recent illness Associated symptoms: dyspnea Treatment prior to arrival: none Related Data Home Medications ?Medication ?Instructions ?Recorded ?Confirmed albuterol sulfate 90 mcg/actuation 2 puff inhalation Q4-6H PRN 09/15/20 12/22/23 aerosol inhaler respiratory symptoms fluticasone propionate 110 1 puff PO BID 09/15/20 12/22/23 mcg/actuation HFA aerosol inhaler (Flovent HFA) insulin glargine 100 unit/mL (3 35 unit subcut BEDTIME 09/15/20 12/22/23 mL) subcutaneous pen (Lantus Solostar U-100 Insulin) omeprazole 20 mg capsule,delayed 1 cap PO DAILY PRN Acid Reflux 09/15/20 12/22/23 release trazodone 50 mg tablet 1 tab PO BEDTIME PRN insomnia 04/08/21 12/22/23 albuterol sulfate 2.5 mg/3 mL 2.5 mg inhalation Q4H PRN dyspnea 08/07/22 12/22/23 (0.083 %) solution for nebulization loperamide 2 mg capsule 4 mg PO TID PRN diarrhea 08/07/22 12/22/23 melatonin 10 mg tablet 10 mg PO BEDTIME PRN Insomnia 08/07/22 12/22/23 metformin 500 mg tablet,extended 1,000 mg PO BID 08/07/22 12/22/23 release 24 hr gabapentin 600 mg tablet 600 mg PO TID 12/22/23 12/22/23 Previous Rx's ?Medication ?Instructions ?Recorded tramadol 50 mg tablet 50 mg PO BID pain #60 tabs 09/09/23 tizanidine 2 mg tablet 2 mg PO TID PRN muscle spasticity 12/22/23 #90 tabs Allergies Allergy/AdvReac Type Severity Reaction Status Date / Time No Known Allergies Allergy Verified 06/19/24 07:06 Review of Systems 2 Review of Systems: Constitutional : No Weight loss, No Fever, No Chills ENT/Mouth : No sore throat, No Rhinorrhea Eyes: No Eye Pain, No Swelling Cardiovascular : pos Chest Pain, pos SOB, no Dyspnea on Exertion, No Orthopnea, No Edema, No Palpitations Respiratory : No Cough, No Sputum Gastrointestinal : no Nausea, No Vomiting, No Diarrhea, No abdominal Pain, No Hematochezia, No Melena Genitourinary : No Dysuria, No Urinary Frequency Musculoskeletal : No joint pain, No Myalgias, No Joint Swelling Skin : No Skin Lesions, No rash Neuro : No Weakness, No Numbness, No Dizziness, No Headache All other systems reviewed and are negative PMFSH Past Medical History Attestation statement: The following information was validated with the patient. Source: old records reviewed Medical History Elevated sed rate Bilateral ankle joint pain Fixation hardware in foot Leukocytosis Polycythemia Osteomyelitis of ankle Swelling of both ankles GERD (gastroesophageal reflux disease) Hypertension Diabetes Asthma Surgical History H/O left knee surgery Family History Family History Other Asthma Social History Social History Household Members: Family Household Members Other:: and sister Housing: Apartment Do you presently have visiting nurse or other home services: No Alcohol intake: current Alcohol intake frequency: holidays/special occasions only Patient Tobacco Use Status: Current everyday Tobacco user Tobacco use type: Cigarette Cigarettes Per Day: 2 Advance Directives: Yes Advance Directives on File: Yes Advance Directives Date on File: 04/14/21 service: No Current occupational status: employed 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 Oriented X3. No acute distress. Eyes: Pupils equal, round and reactive to light. ENT: Pharynx normal. Neck: Normal inspection. Neck supple. CVS: Normal heart rate and rhythm. Pulses normal. Respiratory: No respiratory distress. Breath sounds normal. Abdomen: Soft and nontender. Skin: Skin warm and dry. Normal skin color. Normal skin turgor. Extremities: No lower extremity edema. No calf ttp Neuro: Oriented X 3. No motor deficit. No sensory deficit. CN2-12 intact Course Course Course Narrative: on repeat discussion still has mild pain she then states she has pain with exertion and dyspnea - radiating down her L arm this is different from her initial story I did order aspirin, heparin, statin our maori physiotherapist recommends transfer Reevaluation(s) Reevaluation #1: call to [facility] transfer line 928am Dr. Nunez accepted transfer will touch base with hospitalist under Dr. Keita 953am Medications Administered Generic Name Dose Route Start Last Admin Trade Name Freq PRN Reason Stop Dose Admin Heparin Sodium/Sodium Chloride 25,000 unit in 250 mls @ 0 mls/hr 06/19/24 09:45 06/19/24 10:21 Heparin Sodium,Porcine/1/2ns IVCONT 9.3 units/kg/hr .Q0M DEL 10 mls/hr Administration Protocol Per Protocol Discontinued Medications Generic Name Dose Route Start Last Admin Trade Name Freq PRN Reason Stop Dose Admin Aspirin 324 mg 06/19/24 09:25 06/19/24 09:51 Aspirin 81 Mg Tab.Chew PO 06/19/24 09:26 324 mg ONCE ONE Administration Atorvastatin Calcium 40 mg 06/19/24 09:25 06/19/24 09:56 Atorvastatin Calcium 40 Mg Tablet PO 06/19/24 09:26 40 mg ONCE ONE Administration Heparin Sodium (Porcine) 4,000 unit 06/19/24 09:25 06/19/24 10:16 Heparin Sodium,Porcine 5,000 Unit/Ml Vial IVPUSH 06/19/24 09:26 4,000 unit ONCE ONE Administration Lactated Ringer's 1,000 mls @ 999 mls/hr 06/19/24 09:04 06/19/24 11:22 Lr IV 06/19/24 10:04 Infused .Q1H1M ONE Infusion Magnesium Sulfate 2 gm in 50 mls @ 25 mls/hr 06/19/24 09:04 06/19/24 10:14 Magnesium Sulfate/H2o IV 06/19/24 11:03 25 mls/hr ONCE ONE Administration Morphine Sulfate 2 mg 06/19/24 09:04 06/19/24 09:45 Morphine Sulfate 2 Mg/Ml Cartridge IVPUSH 06/19/24 09:05 2 mg ONCE ONE Administration Protocol Potassium Chloride 20 meq 06/19/24 09:04 06/19/24 09:47 Potassium Chloride Er 20 Meq Tab.Er.Prt PO 06/19/24 09:05 20 meq ONCE ONE Administration Medical Decision Making Medical Decision Making [facility] Narrative: 39 yo female with PMH of HTN, GERD, asthma, DM, not on OCPs who woke up at 5am today and felt L sided sharp chest pain at this time she has no known risk factors for VTE will obtain labs, EKG, trop x 2, ddimer - I do see initially on EKG idioventricular noted on first part of strip but no hx of this in prior EKGs. Her pain is pleuritic. She is normotensive. At this time will get labs, possible CTA, delta troponin. Distal pulses intact doubt dissection. I am going to consult cardiology given then idioventricular rhythm seen on EKG and her symptoms. I have reviewed prior EKGs there is no abnormality noted. Differential Diagnosis Differential Diagnoses: The differential diagnosis associated with the presentation includes ACS, VTE, chest wall pain, pleurisy Admission/Observation Consideration of admission/observation: Escalation of care including admission/observation considered transfer to [facility] pending per Dr. Uribe she needs a cath Consult Healthcare Provider Management of the patient was discussed with: Food Service Assistant consult to Cardiology given EKG Lab Data MDM Lab Attestation statement: I reviewed the patient's lab results. 06/19/24 10:13 06/19/24 07:19 Labs: Lab Results 06/19/24 06/19/24 06/19/24 Range/Units 07:19 08:08 10:13 WBC 12.2 H 12.3 H (4.8-10.8) X10*3/uL RBC 4.37 4.58 (4.20-5.50) X10*6/uL Hgb 12.7 13.2 (12.0-16.0) g/dl Hct 37.4 38.9 (37.0-47.0) % MCV 85.6 84.9 (80.0-98.0) fL MCH 29.1 28.8 (27.0-33.0) pg MCHC 34.0 33.9 (31.0-35.0) g/dl RDW 13.3 13.2 (11.0-16.0) % Plt Count 369 374 (160-400) X10*3/uL MPV 9.6 9.8 (9.4-12.3) fL Immature Gran % (Auto) 0.3 (0.0-0.4) % Neut % (Auto) 53.6 (45-73) % Lymph % (Auto) 35.3 (20-40) % [place] % (Auto) 8.1 (2-11) % Eos % (Auto) 2.4 (0-4) % Baso % (Auto) 0.3 (0-2) % Lymph # (Auto) 4.3 (1.2-4.9) X10*3/uL [place] # (Auto) 1.0 (0.1-1.2) X10*3/uL Eos # (Auto) 0.3 (0.0-0.4) X10*3/uL Baso # (Auto) 0.0 (0.0-0.2) X10*3/uL Abs Immat Gran (auto) 0.04 H (0.00-0.03) X10*3/uL Absolute Neuts (auto) 6.6 (2.0-8.3) x10*3/uL Absolute Nucleated RBC 0.000 0.000 (0.0-0.012) X10*3/uL Nucleated RBC % (auto) 0.0 0.0 (0.0-0.2) /100WBC PT 10.2 L (10.9-12.4) SEC INR 0.9 (0.9-1.1) aPTT Heparin Protocol 30.0 L (53-77.9) SEC D-Dimer High Sensitivty 165 NG/ML Sodium 138 (135-145) mmol/L Potassium 3.7 (3.3-5.1) mmol/L Chloride 104 (96-108) mmol/L Carbon Dioxide 26 (22-29) mmol/L Anion Gap 12 (12-20) BUN 13 (9-16) mg/dL Creatinine 0.74 (0.5-1.4) mg/dL Estim Creat Clear Calc 130.1 Estimated GFR > 60 Random Glucose 156 H (60-115) mg/dL Calcium 9.1 D (8.4-10.2) mg/dL Magnesium 1.6 (1.6-2.6) mg/dL Total Bilirubin 0.2 (0.0-1.0) mg/dL AST 22 (5-31) U/L ALT 24 (0-31) U/L Alkaline Phosphatase 83 (39-117) U/L Troponin I High Sens < 2.7 < 2.7 (<3.5-17.0) ng/L Total Protein 6.9 (6.5-8.0) g/dL Albumin 3.9 (3.5-5.0) g/dL Beta HCG, Quant < 2 mIU/mL Independent Interpretation I performed an independent interpretation of an: EKG and Plain X-Ray Interpretation: Rate: 72 Rhythm: NSR [place]: left Normal P waves. Normal SHERRELL. Normal QRS complex. ST T wave : no LUCIE, inverted t waves inf leads qTC: 411 prior studies: changed has pattern on this EKG of initial idioventricular that I do not see on priorrs The study has been interpreted contemporaneously by me. . Radiology Impression Discussion of test interpretation with radiology: I have reviewed the radiologist's reading. Radiologist Impression: HISTORY: pain COMPARISON: There are no prior studies for comparison. FINDINGS: A single AP portable view of the chest performed at 7:56 AM is submitted. There is linear subsegmental atelectasis in the right midlung zone and at the left lung base. There is no pleural effusion, pneumothorax, or pulmonary vascular congestion. The heart is normal in size. The bones are intact. XR/XR chest 1V IMPRESSION: Subsegmental atelectasis in the right midlung zone and at the left lung base. Independent Historian Clinical information obtained from an independent historian. History obtained from or confirmed by: Spouse External Record Review External record reviewed: Outpatient record Critical Care Time Critical Care Time Critical Care Time: Yes Total Critical Care Time: 45 Attestation: medical consult, transfer, review of records I attest to this time spent taking care of the patient Discharge Plan Discharge Clinical Impression: Chest pain, exertional, Abnormal ECG, Idioventricular rhythm Patient Disposition: [facility] Transfer Details: [facility] Prescriptions: No Action tramadol 50 mg tablet 50 mg PO BID Qty: 60 0RF omeprazole 20 mg capsule,delayed release(DR/EC) 1 cap PO DAILY PRN (Reason: Acid Reflux) albuterol sulfate 90 mcg/actuation HFA aerosol inhaler 2 puff inhalation Q4-6H PRN (Reason: respiratory symptoms) fluticasone propionate [Flovent HFA] 110 mcg/actuation HFA aerosol inhaler 1 puff PO BID insulin glargine [Lantus Solostar U-100 Insulin] 100 unit/mL (3 mL) insulin pen 35 unit subcut BEDTIME trazodone 50 mg tablet 1 tab PO BEDTIME PRN (Reason: insomnia) albuterol sulfate 2.5 mg /3 mL (0.083 %) solution for nebulization 2.5 mg inhalation Q4H PRN (Reason: dyspnea) loperamide 2 mg capsule 4 mg PO TID PRN (Reason: diarrhea) metformin 500 mg tablet extended release 24 hr 1,000 mg PO BID melatonin 10 mg Tablet 10 mg PO BEDTIME PRN (Reason: Insomnia) gabapentin 600 mg tablet 600 mg PO TID tizanidine 2 mg tablet 2 mg PO TID PRN (Reason: muscle spasticity) Qty: 90 1RF Rx Instructions: No driving while taking this medication. May cause drowsiness. 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 Print Language: Luxembourger
--- NOTE | 2024-06-19 08:02 | PC.NURSE ---
CXR complete. awaiting results
[2024-06-19 08:14] VITALS: BP 132/78; PULSE 69; RESP 16; TEMP 36.6; O2SAT 99
[2024-06-19 08:32] LABS: D Dimer High Sensitivity 165 NG/ML
[2024-06-19 08:38] LABS: HCG Quantitative < 2 mIU/mL
[2024-06-19 08:54] LABS: Magnesium 1.6 mg/dL (1.6-2.6)
--- NOTE | 2024-06-19 09:14 | CA_ITS ---
Transthoracic Echocardiogram Patient (Last, First, Middle): Martina Day, Gender: Female Date of : 1985 Age: 39 Procedure Date: 06/19/2024 Procedure Type: Transthoracic Echocardiogram Location: ER Height: 170.18 cm Weight: 107.05 kg BSA: 2.17 m2 Heart Rate: 61 bpm BP: 132 / 78 mmHg Development Analyst: DIO Referring MD: Maria A Ware DO Symptoms: chest pain, abnormal EKG Study Quality: Adequate w contrast ECG Rhythm: Sinus Conclusions: - The left ventricular systolic function is normal. The calculated ejection fraction is 70% by biplane method. - No obvious valvular pathology seen on this study. Findings Procedure Information Contrast agent, definity, is being given per protocol without apparent complications. Left Ventricle Normal left ventricular cavity size. The left ventricular systolic function is normal. The calculated ejection fraction is 70% by biplane method. There is no evidence of regional wall motion abnormalities. Diastolic function is normal for age. There is mild septal asymmetric hypertrophy. Right Ventricle The right ventricle was not well visualized. There is low normal right ventricular systolic function. Atria Both atria are normal in size. Aortic Valve There is a normal trileaflet aortic valve. There is no aortic valve stenosis. There is no aortic valve regurgitation. Mitral Valve The mitral valve appears normal. There is no mitral valve regurgitation. There is no mitral valve stenosis. Pulmonic Valve The pulmonic valve is likely normal. Tricuspid Valve There is trace tricuspid valve regurgitation. There is no evidence of pulmonary hypertension. Great Vessels The sinuses of valsalva, sino tubular ridge, and aortic arch are normal in size. Venous The inferior vena cava is normal in size and collapses greater than 50% with inspiration. Pericardium/Pleural There is no evidence of pericardial effusion. Prior Study Comparison No prior study available for comparison. Recommendations, Care & Conclusions No obvious valvular pathology seen on this study. Measurements 2D Linear Measurements IVSd: 1.05 0.6-0.9/0.6-1.0 cm LVIDd: 4.51 3.9-5.3/4.2-5.9 cm LVIDd Index: 2.08 2.4-3.2/2.2-3.1 cm/m2 LVIDs: 3.05 2.0-3.6 cm LVPWd: 0.88 0.7-1.1 cm LA Diam: 3.70 2.7-3.8/3.0-4.0 cm LAIDs Index: 1.71 1.5-2.3 cm/m2 LV Mass: 181.98 67-162/88-224 g LV Mass Index: 83.86 43-95/49-115 g/m2 LVOT Diam: 1.90 3.0+(-)1.3 cm 2D Systolic Function EF 4C: 74.60 >55% EF 2C: 66.60 >55% EF BiP: 70.10 >55% Mitral Valve MV Pk E: 1.07 MV PK A: 0.63 MV Decel Time: 152.00 E/A: 1.70 E'Lateral: 10.10 E'Medial: 9.79 E/E' Med: 10.90 E/E' Lat: 10.60 PHT: 45.00 MVA PHT: 4.[address] [place]: 7.05 Aortic Valve AoV Pk [place]: 1.27 AoV Mn [place]: 0.81 AoV VTI: 0.31 AoV Pk Grad: 6.00 Aov Mn Grad: 3.00 RENZO Cont.VTI: 1.97 LVOT LVOT Pk [place]: 0.82 LVOT Mn [place]: 0.55 LVOT VTI: 0.21 LVOT Pk Grad: 3.00 LVOT Mn Grad: 1.00 LVOT Diam: 1.90 LVOT Area: 2.84 Diastolic Function MV Pk E: 1.07 MV Pk A: 0.63 E/A: 1.70 E'Medial: 9.79 E/E' Med: 10.90 E' Laterial: 10.10 E/E' Lat: 10.60 Right Ventricle TAPSE (mm): 27.70 TVS' [place]: 9.25 Tricuspid Valve TR Pk [place]: 2.23 TR Pk Grad: 20.00 RA Press: 8.00 RVSP: 28.00 Great Vessels Aorta Sinus of Valsalva: 2.81 2.0-3.5 cm Ao Asc: 2.70 2.1-3.4 cm Ao Arch: 2.70 Updated in Other Vendor System with Status of Final Justin Uribe MD electronically signed on 06/19/2024 12:28:45 PM with status of Final
[2024-06-19 09:30] VITALS: BMI 37.1
--- NOTE | 2024-06-19 09:34 | PM.CNCAR ---
History of Present Illness History of Present Illness Date of Service: 06/19/24 Chief complaint: high bp Narrative: This is a cardiology consultation regarding chest pain. Patient has a history of obesity,, diabetes, asthma, smoking. Apparently, she woke up with left-sided chest pain. Per ER note, sharp pain and hurting to take a deep breath. However, to me she states that the pain is intermittent and happens more so with activity. When she is walking, she can feel the discomfort in left upper chest and it radiates down the left arm. She also feels intermittent palpitations. During those times, it seems that the telemetry is suggestive of idioventricular rhythm. No previous history of any coronary disease or any other cardiac issues. When she is resting, she states she is comfortable. She also gets some shortness of breath intermittently but she states she has a history of asthma. Review of Systems Review of Systems: Yes all other systems are reviewed and are negative Constitutional: Constitutional: Reports as per HPI and Reports no additional constitutional complaints Eyes: Eyes: Reports as per HPI and Denies no additional eye complaints ENT: Denies system reviewed and no additional complaints, except as documented and Reports as per HPI Cardiovascular: Cardiovascular: Reports as per HPI, Reports no additional cardiovascular complaints, Denies acrocyanosis, Denies cool extremities, Reports chest pain, Denies leg edema, Denies lightheadedness, Denies palpitations and Denies dyspnea Respiratory: Respiratory: Reports as per HPI, Denies no additional respiratory complaints and Denies dyspnea Gastrointestinal: Gastrointestinal: Reports as per HPI and Denies no additional gastrointestinal complaints Genitourinary: Genitourinary: Reports as per HPI Musculoskeletal: Musculoskeletal: Reports no additional musculoskeletal complaints and Reports as per HPI Integumentary/Breasts: Skin/Breast: Reports system reviewed and no additional complaints, except as docu Neurologic: Reports system reviewed and no additional complaints, except as documented and Reports as per HPI Psychiatric: Psychiatric: Reports no additional psychiatric complaints and Reports as per HPI Endocrine: Endocrine: Reports no additional endocrine complaints, Reports as per HPI and Denies palpitations Hematologic/Lymphatic: Hematologic/Lymphatic: Reports no additional hematologic/lymphatic complaints and Reports as per HPI Allergic/Immunologic: Allergic/Immunologic: Reports no additional allergic/immunologic complaints and Reports as per HPI [facility] Past Medical History Medical History Elevated sed rate Bilateral ankle joint pain Fixation hardware in foot Leukocytosis Polycythemia Osteomyelitis of ankle Swelling of both ankles GERD (gastroesophageal reflux disease) Hypertension Diabetes Asthma Family History Family History Other Asthma Surgical History Surgical History H/O left knee surgery Social History Social History Household Members: Family Household Members Other:: and sister Housing: Apartment Do you presently have visiting nurse or other home services: No Alcohol intake: current Alcohol intake frequency: holidays/special occasions only Patient Tobacco Use Status: Current everyday Tobacco user Tobacco use type: Cigarette Cigarettes Per Day: 2 Advance Directives: Yes Advance Directives on File: Yes Advance Directives Date on File: 04/14/21 service: No Current occupational status: employed 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 Allergies Allergy/AdvReac Type Severity Reaction Status Date / Time No Known Allergies Allergy Verified 06/19/24 07:06 Active Medications: Current Medications Heparin Sodium (Porcine) (Heparin Sodium,Porcine 5,000 Unit/Ml Vial) 4,400 unit 40 unit/kg (4400 unit) IVPUSH PROTOCOL BOLUS PRN; Protocol PRN Reason: 40 unit/kg - Heparin Protocol Heparin Sodium (Porcine) (Heparin Sodium,Porcine 5,000 Unit/Ml Vial) 8,800 unit 80 unit/kg (8800 unit) IVPUSH PROTOCOL BOLUS PRN; Protocol PRN Reason: 80 unit/kg - Heparin Protocol Lactated Ringer's (Lr) 1,000 mls @ 999 mls/hr IV .Q1H1M ONE Stop: 06/19/24 10:04 Magnesium Sulfate (Magnesium Sulfate/H2o) 2 gm in 50 mls @ 25 mls/hr IV ONCE ONE Stop: 06/19/24 11:03 Heparin Sodium/Sodium Chloride (Heparin Sodium,Porcine/1/2ns) 25,000 unit in 250 mls @ 0 mls/hr IVCONT .Q0M DEL; Protocol Home Medications ?Medication ?Instructions ?Recorded ?Confirmed ?Last Taken ?Type albuterol sulfate 90 mcg/actuation 2 puff inhalation Q4-6H PRN 09/15/20 12/22/23 Unknown History aerosol inhaler respiratory symptoms fluticasone propionate 110 1 puff PO BID 09/15/20 12/22/23 08/07/22 09:00 History mcg/actuation HFA aerosol inhaler (Flovent HFA) insulin glargine 100 unit/mL (3 35 unit subcut BEDTIME 09/15/20 12/22/23 08/07/22 09:00 History mL) subcutaneous pen (Lantus Solostar U-100 Insulin) omeprazole 20 mg capsule,delayed 1 cap PO DAILY PRN Acid Reflux 09/15/20 12/22/23 Unknown History release trazodone 50 mg tablet 1 tab PO BEDTIME PRN insomnia 04/08/21 12/22/23 Unknown History albuterol sulfate 2.5 mg/3 mL 2.5 mg inhalation Q4H PRN dyspnea 08/07/22 12/22/23 Unknown History (0.083 %) solution for nebulization loperamide 2 mg capsule 4 mg PO TID PRN diarrhea 08/07/22 12/22/23 Unknown History melatonin 10 mg tablet 10 mg PO BEDTIME PRN Insomnia 08/07/22 12/22/23 Unknown History metformin 500 mg tablet,extended 1,000 mg PO BID 08/07/22 12/22/23 08/07/22 09:00 History release 24 hr gabapentin 600 mg tablet 600 mg PO TID 12/22/23 12/22/23 Unknown History Physical Exam Vital Signs: Vital Signs: Last Vital Signs Temp 97.8 F 06/19/24 08:14 Pulse 69 06/19/24 08:14 Resp 16 06/19/24 08:14 BP 132/78 06/19/24 08:14 Pulse Ox 99 06/19/24 08:14 O2 Del Method Room Air 06/19/24 08:14 BMI result Body Mass Index 37.1 Const: General: comfortable and no acute distress Orientation/consciousness: patient oriented x3 HEENT: Other: Unremarkable Head: Yes normal to inspection Neck: Neck: Yes normal visual inspection Chest: Chest palpation & inspection: normal inspection of the chest Resp: Auscultation: clear to auscultation bilaterally Cardio: Palpation: normal PMI Heart sounds: S1 normal heart sound present, S2 normal heart sound present, no gallops, no murmurs and no rubs GI: Palpation (GI): Soft to palpation Back/Spine/Pelvis: Other: unremarkable Skin: General skin exam: no rashes or lesions noted Neuro: General: patient oriented x3 Extrem: General: Yes normal to inspection Psych: Mental Status: mental status grossly normal Objective Labs and Meds 06/19/24 07:19 06/19/24 07:19 Lab results: Laboratory Results - last 24 hr 06/19/24 06/19/24 07:19 08:08 WBC 12.2 H RBC 4.37 Hgb 12.7 Hct 37.4 MCV 85.6 MCH 29.1 MCHC 34.0 RDW 13.3 Plt Count 369 MPV 9.6 Immature Gran % (Auto) 0.3 Neut % (Auto) 53.6 Lymph % (Auto) 35.3 [place] % (Auto) 8.1 Eos % (Auto) 2.4 Baso % (Auto) 0.3 Lymph # (Auto) 4.3 [place] # (Auto) 1.0 Eos # (Auto) 0.3 Baso # (Auto) 0.0 Abs Immat Gran (auto) 0.04 H Absolute Neuts (auto) 6.6 Absolute Nucleated RBC 0.000 Nucleated RBC % (auto) 0.0 D-Dimer High Sensitivty 165 Sodium 138 Potassium 3.7 Chloride 104 Carbon Dioxide 26 Anion Gap 12 BUN 13 Creatinine 0.74 Estim Creat Clear Calc 130.1 Estimated GFR > 60 Random Glucose 156 H Calcium 9.1 D Magnesium 1.6 Total Bilirubin 0.2 AST 22 ALT 24 Alkaline Phosphatase 83 Troponin I High Sens < 2.7 Total Protein 6.9 Albumin 3.9 Beta HCG, Quant < 2 ECG Interpretation: EKG-2nd half of the EKG shows sinus rhythm with no ischemic changes. First half of the EKG appears like idioventricular rhythm. Imaging Radiologist's impression: Impressions Chest X-Ray 06/19/24 07:22 IMPRESSION: Subsegmental atelectasis in the right midlung zone and at the left lung base. Electronically signed by: Angelo Mccartney MD 06/19/2024 08:13 AM EDT Assessment and Plan (1) Chest pain, exertional: Status: Acute (2) Abnormal ECG: Status: Acute (3) Smoker: Status: Acute (4) Morbid obesity: Status: Acute Plan With regard to symptoms, new onset exertional type chest pain/palpitations. In the EKG, idioventricular rhythm alternating with sinus rhythm. First set of troponin is unremarkable. Await more sets. Obtain echocardiogram. We will treat this as unstable angina. IV heparin drip, aspirin and some beta-blockers. Statins. Recommended diagnostic catheterization for further evaluation. Transfer to [facility] or [facility] depending on bed situation. Discussed with Dr. Ware in emergency room. Discussed with patient using pool table operator. Family was at the bedside. Procedures Date of Service Date of Service: 06/19/24
[2024-06-19] MEDS: Lactated Ringers 1,000 ML 999 ML IV (09:42)
[2024-06-19 09:45] VITALS: RESP 16
[2024-06-19] MEDS: Morphine Sulfate 2 MG/ML CARTRIDGE IVPUSH (09:45)
[2024-06-19] MEDS: Potassium Chloride ER 20 MEQ TAB.ER.PRT PO (09:47)
[2024-06-19] MEDS: Aspirin 81 MG TAB.CHEW 324 MG PO (09:51)
[2024-06-19] MEDS: Atorvastatin Calcium 40 MG TABLET PO (09:56)
[2024-06-19] MEDS: Magnesium Sulfate/H2O 2 GM/50 ML PIGGYBACK IV (10:14)
[2024-06-19] MEDS: Heparin Sodium,Porcine 5,000 UNIT/ML VIAL 4000 UNIT IVPUSH (10:16)
[2024-06-19 10:20] LABS: Hematocrit 38.9 % (37.0-47.0); Hemoglobin 13.2 g/dl (12.0-16.0); Mean Corpuscular HGB Conc 33.9 g/dl (31.0-35.0); Mean Corpuscular Hemoglobin 28.8 pg (27.0-33.0); Mean Corpuscular Volume 84.9 fL (80.0-98.0); Mean Platelet Volume 9.8 fL (9.4-12.3); Platelet Count 374 X10*3/uL (160-400); Red Blood Count 4.58 X10*6/uL (4.20-5.50); Red Cell Distribution Width 13.2 % (11.0-16.0); White Blood Count 12.3 X10*3/uL (4.8-10.8)
[2024-06-19] MEDS: Heparin Sodium,Porcine/1/2NS 25,000 UNIT/250 ML IV.SOLN 10 UNIT IVCONT (10:21)
[2024-06-19 10:26] LABS: INTERNATIONAL NORM RATIO 0.9 (0.9-1.1); Prothrombin Time 10.2 SEC (10.9-12.4)
[2024-06-19 10:36] VITALS: BP 138/75; PULSE 59; RESP 18; O2SAT 97
[2024-06-19 10:40] LABS: Troponin-I High Sensitivity < 2.7 ng/L (<3.5-17.0)
--- NOTE | 2024-06-19 10:47 | PC.NURSE ---
Charted that I inserted Bilateral IV to forearms. Entered in ERROR. Only inserted #20 gauge IV in left forearm. Also inserted #22 gauge in right wrist as well.
[2024-06-19 14:19] VITALS: BP 138/75; PULSE 59; RESP 18; TEMP 36.6; O2SAT 97
--- NOTE | 2024-06-19 14:19 | PC.NURSE ---
Report to mp zavala
[2024-06-19 14:31] LABS: Glucose, Whole Blood 117 mg/dL (60-115)
== END 2024-06-19 14:17 | disposition short-term general hospital (02) ==
PROVIDERS: Emergency Provider Emergency Medicine; PCP Family Medicine
DX: R07.9 Chest pain, unspecified (principal); R94.31 Abnormal electrocardiogram [ECG] [EKG]; F17.200 Nicotine dependence, unspecified, uncomplicated; I10 Essential (primary) hypertension; K21.9 Gastro-esophageal reflux disease without esophagitis; E11.9 Type 2 diabetes mellitus without complications; E66.01 Morbid (severe) obesity due to excess calories; Z68.37 Body mass index [BMI] 37.0-37.9, adult
CPT/HCPCS: 36415; 71045; 80053; 82947; 83735; 84484; 84702; 85025; 85027; 85379; 85610; 85730; 93005; 93306; 96361; 96365; 96366; 96375; 99285; J1644; J2270; J3475; J7120; Q9957

== ENCOUNTER → 2024-06-19 07:22 | Outpatient (BNV) | payer MEDICAID, SELFPAY | PROVIDERS: Emergency Provider Emergency Medicine; PCP Family Medicine; Visit Provider Radiology Diagnostic Radiology | DX: J98.11 Atelectasis (principal) | CPT/HCPCS: 71045 ==

== ENCOUNTER → 2024-06-19 07:46 | Outpatient (BNV) | payer MEDICAID, SELFPAY | PROVIDERS: Emergency Provider Emergency Medicine; PCP Family Medicine; Visit Provider Internal Medicine | DX: I42.2 Other hypertrophic cardiomyopathy (principal); R07.9 Chest pain, unspecified; R94.31 Abnormal electrocardiogram [ECG] [EKG]; F17.200 Nicotine dependence, unspecified, uncomplicated; E66.01 Morbid (severe) obesity due to excess calories | CPT/HCPCS: 93010; 93306; 99283 ==